=== PATIENT | male | born 1965 | race Caucasian/White ===

== ENCOUNTER → 2018-03-19 16:41 | Outpatient (REF) | payer MEDICARE, SELFPAY ==
[2018-03-19 19:15] LABS: HCT 33.6 % (40.0-50.0); HGB 11.4 g/dL (13.5-17.5); Mean Corp. HGB Concentration 33.9 g/dL (32.0-36.0); Mean Corpuscular Hemoglobin 32.5 pg (27.0-33.0); Mean Corpuscular Volume 95.7 fL (80-95); Mean Platelet Volume 9.6 fL (8.0-11.0); Platelet Count 404 x1000/uL (130-400); RBC 3.51 m/cumm (4.50-6.00); RBC Distribution Width 12.6 % (11.8-14.1); White Blood Cell Count 7.73 k/cumm (4.4-10.8)
[2018-03-19 19:17] LABS: Anion Gap 10.2 mmol/L (3-11); BUN 19 mg/dL (7-18); C-Reactive Protein 6.51 mg/dL (0.0-0.3); CO2 26.8 mmol/L (21.0-32.0); CREATININE 0.94 mg/dL (0.70-1.30); Calcium 9.5 mg/dL (8.5-10.1); Chloride 97 mmol/L (98-107); Glucose 78 mg/dL (70-100); Potassium 4.7 mmol/L (3.5-5.1); Sodium 134 mmol/L (136-145)
[2018-03-19 20:35] LABS: ESR 23 MM/HR (1-20)
[2018-03-25 13:39] LABS: Codeine Negative ng/mL (Cutoff: 25); Dihydrocodeine Negative ng/mL (Cutoff: 25); Hydrocodone 85 ng/mL (Cutoff: 25); Hydromorphone Negative ng/mL (Cutoff: 25); Morphine Negative ng/mL (Cutoff: 25); Naloxone Negative ng/mL (Cutoff: 25); Norhydrocodone Negative ng/mL (Cutoff: 25); Noroxycodone 48357 ng/mL (Cutoff: 25); Noroxymorphone 3676 ng/mL (Cutoff: 25); Opiates Interpretation Positive.
[2018-03-26 02:53] LABS: EDDP-by GC-MS 347 ng/mL; Methadone Interpretation Positive.; Methadone-by GC-MS 343 ng/mL
[2018-03-26 04:42] LABS: 2-OH-Ethyl-Flurazepam Negative ng/mL (Cutoff: 100); 7-NH-Clonazepam 3299 ng/mL (Cutoff: 100); 7-NH-Flunitrazepam Negative ng/mL (Cutoff: 50); Alpha OH-Alprazolam Negative ng/mL (Cutoff: 100); Alpha-OH-Triazolam Negative ng/mL (Cutoff: 100); Benzodiazepines Interpretation Positive.; Lorazepam Negative ng/mL (Cutoff: 100); Temazepam Negative ng/mL (Cutoff: 100)
== END ==
LOC: NCHCN 16:41
PROVIDERS: PCP Family Medicine; Visit Provider Family Medicine
DX: M86.9 Osteomyelitis, unspecified (principal); G89.4 Chronic pain syndrome; Z51.81 Encounter for therapeutic drug level monitoring
CPT/HCPCS: 80048; 80361; 85027; 85652; 80346; 80358; 86140

== ENCOUNTER 2018-06-24 13:20 | Outpatient (REF) | payer MEDICARE, SELFPAY ==
[2018-06-24 21:01] LABS: Abs Immature Grans 0.01 k/cumm (0.0-0.09); Absolute Basophil Count 0.03 k/cumm (0.0-0.2); Absolute Eosinophil Count 0.01 k/cumm (0.0-0.7); Absolute Lymphocyte Count 1.88 k/cumm (1.2-3.4); Absolute Monocyte Count 0.41 k/cumm (0.11-0.7); Absolute Neutrophil Count 3.64 k/cumm (1.2-6.7); Basophils % 0.5; Eosinophils % 0.2; HCT 40.4 % (40.0-50.0); HGB 13.3 g/dL (13.5-17.5); Immature Grans % 0.2; Lymphocytes % 31.4; Mean Corp. HGB Concentration 32.9 g/dL (32.0-36.0); Mean Corpuscular Hemoglobin 32.4 pg (27.0-33.0); Mean Corpuscular Volume 98.5 fL (80-95); Mean Platelet Volume 9.8 fL (8.0-11.0); Monocytes % 6.9; Neutrophils % 60.8; Platelet Count 334 x1000/uL (130-400); RBC Distribution Width 12.6 % (11.8-14.1); White Blood Cell Count 5.98 k/cumm (4.4-10.8)
[2018-06-24 21:55] LABS: ESR 12 MM/HR (1-20)
[2018-06-24 21:58] LABS: ALT 22 U/L (12-78); AST 13 U/L (15-37); Albumin 3.9 g/dL (3.4-5.0); Alkaline Phosphatase 72 U/L (46-116); Anion Gap 8.9 mmol/L (3-11); BUN 15 mg/dL (7-18); Bilirubin, Total 0.2 mg/dL (0.2-1.0); CO2 28.1 mmol/L (21.0-32.0); CREATININE 0.78 mg/dL (0.70-1.30); Calcium 9.5 mg/dL (8.5-10.1); Chloride 104 mmol/L (98-107); Glucose 108 mg/dL (70-100); Potassium 4.6 mmol/L (3.5-5.1); Sodium 141 mmol/L (136-145); TSH (W/Ref FT4) 0.38 uIU/mL (0.358-3.74); Total Protein 7.3 g/dL (6.4-8.2); Vitamin B12 677 pg/mL (193-986)
[2018-06-24 22:16] LABS: C-Reactive Protein 0.39 mg/dL (0.0-0.3)
== END 2018-06-24 13:40 ==
LOC: NCHCN 13:20
PROVIDERS: PCP Family Medicine; Visit Provider Family Medicine
DX: G62.9 Polyneuropathy, unspecified (principal); I10 Essential (primary) hypertension; L97.509 Non-pressure chronic ulcer of other part of unspecified foot with unspecified severity
CPT/HCPCS: 80053; 85652; 82607; 84443; 85025; 86140

== ENCOUNTER 2018-12-21 14:07 | Outpatient (REF) | payer MEDICARE, MEDICAID, SELFPAY ==
[2018-12-21 21:55] LABS: Abs Immature Grans 0.01 k/cumm (0.0-0.09); Absolute Basophil Count 0.02 k/cumm (0.0-0.2); Absolute Eosinophil Count 0.04 k/cumm (0.0-0.7); Absolute Lymphocyte Count 1.79 k/cumm (1.2-3.4); Absolute Monocyte Count 0.55 k/cumm (0.11-0.7); Absolute Neutrophil Count 5.25 k/cumm (1.2-6.7); Basophils % 0.3; Eosinophils % 0.5; HCT 40.6 % (40.0-50.0); HGB 13.6 g/dL (13.5-17.5); Immature Grans % 0.1; Lymphocytes % 23.4; Mean Corp. HGB Concentration 33.5 g/dL (32.0-36.0); Mean Corpuscular Hemoglobin 32.2 pg (27.0-33.0); Mean Corpuscular Volume 96.2 fL (80-95); Mean Platelet Volume 9.9 fL (8.0-11.0); Monocytes % 7.2; Neutrophils % 68.5; Platelet Count 295 x1000/uL (130-400); RBC 4.22 m/cumm (4.50-6.00); RBC Distribution Width 12.9 % (11.8-14.1); White Blood Cell Count 7.66 k/cumm (4.4-10.8)
[2018-12-21 22:06] LABS: C-Reactive Protein 1.49 mg/dL (0.0-0.3)
[2018-12-21 23:23] LABS: ESR 21 MM/HR (1-20)
== END 2018-12-21 14:27 ==
LOC: NCHCN 14:07
PROVIDERS: PCP Family Medicine; Visit Provider Family Medicine
DX: L97.519 Non-pressure chronic ulcer of other part of right foot with unspecified severity (principal); L72.9 Follicular cyst of the skin and subcutaneous tissue, unspecified; R50.81 Fever presenting with conditions classified elsewhere; L98.9 Disorder of the skin and subcutaneous tissue, unspecified; L03.031 Cellulitis of right toe
CPT/HCPCS: 85652; 87077; 85025; 86140; 87070; 87186; 87205

== ENCOUNTER 2019-01-21 13:28 | Outpatient (REF) | payer MEDICARE, MEDICAID, SELFPAY | END 2019-01-21 13:48 | LOC: NCHCN 13:28 | PROVIDERS: PCP Family Medicine; Visit Provider Family Medicine | DX: L97.509 Non-pressure chronic ulcer of other part of unspecified foot with unspecified severity (principal); G89.4 Chronic pain syndrome; I10 Essential (primary) hypertension; L08.9 Local infection of the skin and subcutaneous tissue, unspecified | CPT/HCPCS: 87077; 87070; 87186; 87205 ==

== ENCOUNTER 2019-06-15 12:49 | Outpatient (REF) | payer MEDICARE, MEDICAID, SELFPAY ==
[2019-06-15 13:29] LABS: ALT 13 U/L (16-63); AST 16 U/L (15-37); Albumin 3.7 g/dL (3.4-5.0); Alkaline Phosphatase 65 U/L (46-116); Anion Gap 7.9 mmol/L (3-11); BUN 12 mg/dL (7-18); Bilirubin, Total 0.2 mg/dL (0.2-1.0); C-Reactive Protein 0.46 mg/dL (0.0-0.3); CO2 31.1 mmol/L (21.0-32.0); CREATININE 0.84 mg/dL (0.70-1.30); Calcium 8.9 mg/dL (8.5-10.1); Chloride 103 mmol/L (98-107); Glucose 91 mg/dL (70-100); Potassium 4.5 mmol/L (3.5-5.1); Sodium 142 mmol/L (136-145); Total Protein 6.8 g/dL (6.4-8.2)
[2019-06-15 13:53] LABS: Abs Immature Grans 0.01 k/cumm (0.0-0.09); Absolute Basophil Count 0.01 k/cumm (0.0-0.2); Absolute Eosinophil Count 0.21 k/cumm (0.0-0.7); Absolute Lymphocyte Count 2.22 k/cumm (1.2-3.4); Absolute Monocyte Count 0.51 k/cumm (0.11-0.7); Basophils % 0.2; Eosinophils % 3.7; HGB 13.5 g/dL (13.5-17.5); Immature Grans % 0.2; Lymphocytes % 39.2; Mean Corp. HGB Concentration 32.9 g/dL (32.0-36.0); Mean Corpuscular Hemoglobin 33.7 pg (27.0-33.0); Mean Corpuscular Volume 102.2 fL (80-95); Mean Platelet Volume 10.3 fL (8.0-11.0); Neutrophils % 47.7; Platelet Count 261 x1000/uL (130-400); RBC 4.01 m/cumm (4.50-6.00); RBC Distribution Width 13.6 % (11.8-14.1); White Blood Cell Count 5.66 k/cumm (4.4-10.8)
[2019-06-15 14:52] LABS: ESR 7 mm/hr (1-20)
== END 2019-06-15 13:09 ==
LOC: NCHCN 12:49
PROVIDERS: PCP Family Medicine; Visit Provider Family Medicine
DX: I10 Essential (primary) hypertension (principal); R68.89 Other general symptoms and signs; G89.4 Chronic pain syndrome
CPT/HCPCS: 80053; 85652; 85025; 86140

== ENCOUNTER 2019-10-25 15:41 | Outpatient (REF) | payer MEDICARE, MEDICAID, SELFPAY ==
[2019-10-25 20:01] LABS: Calculated LDL 125 mg/dL (<100); Cholesterol 194 mg/dL (<200); HDL Cholesterol 60 mg/dL (40-60); Triglyceride 45 mg/dL (<150)
[2019-10-25 20:20] LABS: ESR 6 mm/hr (1-20)
[2019-10-25 20:26] LABS: C-Reactive Protein 0.09 mg/dL (0.0-0.3)
== END 2019-10-25 16:01 ==
LOC: NCHCN 15:41
PROVIDERS: PCP Family Medicine; Visit Provider Family Medicine
DX: E78.5 Hyperlipidemia, unspecified (principal); M86.9 Osteomyelitis, unspecified
CPT/HCPCS: 80061; 85652; 86140

== ENCOUNTER 2021-02-01 11:00 | Outpatient (RCR) | payer OTHER, SELFPAY ==
[2021-02-01] MEDS: cefTRIAXone 2 GM/50 ML BAG IVPB (13:50)
[2021-02-01] MEDS: Normal Saline Flush 10 ML SYR IVP (13:58)
== END 2021-02-06 23:59 | disposition home or self-care (01) ==
LOC: INF 11:00
PROVIDERS: PCP Family Medicine; Visit Provider Nurse Practitioner Acute Care
DX: T84.54XA Infection and inflammatory reaction due to internal left knee prosthesis, initial encounter (principal)
CPT/HCPCS: 36573; 96365

== ENCOUNTER 2021-11-13 15:56 | Outpatient (REF) | payer MEDICAID, SELFPAY ==
--- OUTSIDE RECORDS SUMMARY | 2021-11-13 15:58 | XMS_ITS ---
:1965 Author Care Team Providers Name Role Phone [facility] Primary Care Provider [phone] Allergies Code Code System Name Reaction Severity Status Onset Nsaids Anaphylaxis Severe Active ? (Non-steroid al Anti-inflamm atory Drug) Medications Name Status Start Date Stop Date ? ? acetaminophen 325 mg tablet Active 02/01/2021 Not available Take 650 mg every 6 hours by oral route as needed. amitriptyline 50 mg tablet Active 01/31/2021 Not a vailable Take 1 tablet every day by oral route at bedtime. aspirin 325 mg tablet Active 02/01/2021 Not availa ble Take 1 tablet every day by oral route. ceftriaxone 2 gram intravenous solution Active 02/02/20 Not available Inject 2 g every 24 hours by intravenous route as directed for 42 days. clonidine HCl 0.1 mg tablet Completed 01/02/202001/09 Take 0.1 mg twice a day by oral route. oxycodone 5 mg capsule Active ? Not avail able Take 5 mg every 6 hours by oral route as needed. Subutex 2 mg sublingual tablet Active 01/31/[address] 1 tablet every day by sublingual route. Subutex 8 mg sublingual tablet Active 01/31/[address] 1 tablet every day by sublingual route. verapamil ER (SR) 240 mg tablet,extended release Active 01/31/2021 Not available Take 1 tablet every day by oral route. Vistaril 25 mg capsule Active 01/31/2021 Not avail able Take 1 capsule twice a day by oral route. warfarin 2 mg tablet Active 02/01/2021 Not availab le Take 1 tablet every day by oral route. Notes: med rec 01/28/21 wmd Problems Name Status Onset Date Source ? Depressive Disorder Active 02/13/2021 ? Hypertensive Disorder Active 02/13/2021 ? Procedures Date Name Performed by ? 01/30/2021 Debridement and Irrigation of Joint Info rmation not available Notes: 2nd I&D infected L TKA w/poly. liner exchange 01/25/2021 Debridement and Irrigation of Joint Info rmation not available Notes: I&D septic L TKA 08/10/2014 Total Hip Arthroplasty Information not a vailable Notes: right ? Total Knee Arthroplasty Information not available 04/25/2021 XR, Knee, 3 View [facility] Radiology (Internal) [address] [place], [place] [id number] (Work Place) Results Lab Results Date Name Specimen Result Interpretation Description Value Range Status Address ? 03/21/2021 CBC W/ Auto BLD ? Wbc 7.0 10*3/uL 5.0-10.0 F inal North Diff 10*3/uL [facility] Hospital L ab (Internal) : [address] ? ? BLD Low Rbc 4.38 10*6/uL 4.60-6.00 Final N orth 10*6/uL [facility] L ab (Internal) : [address] ? ? BLD Low Hgb 12.5 g/dL 14.0-18.0 Final Nort h g/dL [facility] L ab (Internal) : [address] ? ? BLD Low Hct 40.0 % 41.0-51.0 Final [facility] L ab (Internal) : [address] ? ? BLD ? Mcv 91.3 fL 80.0-96.0 Final [facility] L ab (Internal) : [address] ? ? BLD ? Mch 28.5 pg 26.0-32.[address] [facility] L ab (Internal) : [address] ? ? BLD ? Mchc 31.3 g/dL 31.0-35.0 Final Nort h g/dL [facility] L ab (Internal) : [address] ? ? BLD ? Rdw 13.4 % 11.5-14.5 Final [facility] L ab (Internal) : [address] ? ? BLD ? Plt 437 10*3/uL 130-450 Final Nort h 10*3/uL [facility] L ab (Internal) : [address] 03/21/2021 CRP, High S High Rcrp 4.01 mg/dL 0.10-0.30 [facility] Sensitivity, mg/dL Coun try Serum or Hospital Lab Plasma (Internal) : [address] t 03/21/2021 Differential BLD ? Polys 45 % 40-75 % Final Iva , [facility], [facility] Blood Hospital L ab (Internal) : [address] ? ? BLD ? Bands 0 % 0-5 % Final [facility] Hospital L ab (Internal) : [address] ? ? BLD ? Lymphs 42 % 20-50 % Final [facility] Hospital L ab (Internal) : [address] ? ? BLD ? Coryell 8 % 2-10 % Final [facility] Hospital L ab (Internal) : [address] ? ? BLD ? Eos 2 % 0-6 % Final [facility] L ab (Internal) : [address] ? ? BLD ? Baso 1 % 0-1 % Final [facility] L ab (Internal) : [address] ? ? BLD ? Atyp 3 % ? Final [facility] L ab (Internal) : [address] ? ? BLD ? Plts, adequate adequate Final [facility] Hospital L ab (Internal) : [address] ? ? BLD ? RBC normal normal Final [facility] Hospital L ab (Internal) : [address] t 03/21/2021 Neutrophil BLD ? Anc-manua 3.15 10*3/uL ? Final Iva Count, [facility] Lab (Anc), Blood (Int ernal): [address] t 03/21/2021 Nlr-manual BLD ? Nlr - 1.07 0.00-3.20 Final [facility] Hospital L ab (Internal) : [address] t 03/21/2021 ESR BLD High Esr 52 mm/h 0-20 mm/h Final No rth (Erythrocyte Coun try [facility] Hosp ital Lab n Rate), (Interna l): Blood [address] t 02/01/2021 Cbc BLD High Wbc 10.3 10*3/uL 5.0-10.0 Final North 10*3/uL [facility] Hospital L ab (Internal) : [address] ? ? BLD ? Rbc 5.53 10*6/uL 4.60-6.00 Final N orth 10*6/uL [facility] L ab (Internal) : [address] ? ? BLD ? Hgb 17.1 g/dL 14.0-18.0 Final Nort h g/dL [facility] L ab (Internal) : [address] ? ? BLD High Hct 52.5 % 41.0-51.0 Final [facility] L ab (Internal) : [address] ? ? BLD ? Mcv 94.9 fL 80.0-96.0 Final [facility] L ab (Internal) : [address] ? ? BLD ? Mch 30.9 pg 26.0-32.[address] [facility] L ab (Internal) : [address] ? ? BLD ? Mchc 32.6 g/dL 31.0-35.0 Final Nort h g/dL [facility] L ab (Internal) : [address] ? ? BLD ? Rdw 13.3 % 11.5-14.5 Final [facility] L ab (Internal) : [address] ? ? BLD ? Plt 174 10*3/uL 130-450 Final Nort h 10*3/uL [facility] L ab (Internal) : [address] ? ? BLD ? Anc 7.61 10*3/uL ? Final Nort h [facility] L ab (Internal) : [address] 01/31/2021 CBC W/ Auto BLD High Wbc 11.6 10*3/uL 5.0-10.0 Final North Diff 10*3/uL [facility] L ab (Internal) : [address] ? ? BLD Low Rbc 3.01 10*6/uL 4.60-6.00 Final N orth 10*6/uL [facility] Hospital L ab (Internal) : [address] ? ? BLD Low Hgb 9.3 g/dL 14.0-18.0 Final Iva g/dL [facility] Hospital L ab (Internal) : [address] ? ? BLD Low Hct 27.9 % 41.0-51.0 Final [facility] L ab (Internal) : [address] ? ? BLD ? Mcv 92.7 fL 80.0-96.0 Final [facility] L ab (Internal) : [address] ? ? BLD ? Mch 30.9 pg 26.0-32.[address] [facility] L ab (Internal) : [address] ? ? BLD ? Mchc 33.3 g/dL 31.0-35.0 [facility] L [facility] (Internal[facility] : [address] ? ? BLD ? Rdw 13.2 % 11.5-14.5 Final [facility] L ab (Internal) : [address] ? ? BLD ? Plt 364 10*3/uL 130-450 Final Nort h 10*3/uL [facility] Hospital L ab (Internal) : [address] ? ? BLD ? Anc 8.71 10*3/uL ? Final Nort [facility] L ab (Internal) : [address] ? ? BLD High Nlr 5.62 0.00-3.20 Final [facility] L ab (Internal) : [address] ? ? BLD ? Neutro 75.0 % 40.0-75.0 Final [facility] L ab (Internal) : [address] ? ? BLD Low Lymph 13.4 % 20.0-50.0 Final [facility] L ab (Internal) : [address] ? ? BLD High Coryell 10.2 % 2.0-10.0 Final [facility] L ab (Internal) : [address] ? ? BLD Low Eos 0.5 % 1.0-6.0 % Final [facility] L ab (Internal) : [address] ? ? BLD ? Baso 0.3 % 0.0-1.0 % Final [facility] L ab (Internal) : [address] ? ? BLD ? Ig 0.6 % 0.0-0.9 % Final [facility] L ab (Internal) : [address] 01/30/2021 Cbc BLD ? Wbc 9.9 10*3/uL 5.0-10.0 Final Iva 10*3/uL [facility] L ab (Internal) : [address] ? ? BLD Low Rbc 3.29 10*6/uL 4.60-6.00 Final N orth 10*6/uL [facility] Hospital L ab (Internal) : [address] ? ? BLD Low Hgb 10.2 g/dL 14.0-18.0 Final Nort h g/dL [facility] L ab (Internal) : [address] ? ? BLD Low Hct 31.0 % 41.0-51.0 Final [facility] L ab (Internal) : [address] ? ? BLD ? Mcv 94.2 fL 80.0-96.0 Final [facility] L ab (Internal) : [address] ? ? BLD ? Mch 31.0 pg 26.0-32.[address] [facility] L ab (Internal) : [address] ? ? BLD ? Mchc 32.9 g/dL 31.0-35.0 Final Nort h g/dL [facility] L ab (Internal) : [address] ? ? BLD ? Rdw 13.4 % 11.5-14.5 Final [facility] L ab (Internal) : [address] ? ? BLD ? Plt 254 10*3/uL 130-450 Final Nort h 10*3/uL [facility] L ab (Internal) : [address] ? ? BLD ? Anc 6.96 10*3/uL ? Final Nort h [facility] Hospital L ab (Internal) : [address] 01/30/2021 Vancomycin, S Low Vanco, 13.7 ug/mL 15.0-20.0 Final Iva Trough, Trough ug/mL [facility] Hospital L ab (Internal) : [address] 01/29/2021 Cbc BLD ? Wbc 9.2 10*3/uL 5.0-10.0 Final Iva 10*3/uL [facility] Hospital L ab (Internal) : [address] ? ? BLD Low Rbc 2.89 10*6/uL 4.60-6.00 Final N orth 10*6/uL [facility] Hospital L ab (Internal) : [address] ? ? BLD Low Hgb 9.0 g/dL 14.0-18.0 Final Iva g/dL [facility] L ab (Internal) : [address] ? ? BLD Low Hct 27.4 % 41.0-51.0 Final [facility] L ab (Internal) : [address] ? ? BLD ? Mcv 94.8 fL 80.0-96.0 Final [facility] L ab (Internal) : [address] ? ? BLD ? Mch 31.1 pg 26.0-32.[address] [facility] L ab (Internal) : [address] ? ? BLD ? Mchc 32.8 g/dL 31.0-35.0 Final Nort h g/dL [facility] L ab (Internal) : [address] ? ? BLD ? Rdw 13.3 % 11.5-14.5 Final [facility] L ab (Internal) : [address] ? ? BLD ? Plt 213 10*3/uL 130-450 Final Nort h 10*3/uL [facility] L ab (Internal) : [address] ? ? BLD ? Anc 6.63 10*3/uL ? Final Nort h [facility] L ab (Internal) : [address] t 01/29/2021 Vancomycin, S Low Vanco, 11.0 ug/mL 15.0-20.0 Final Iva Trough, Trough ug/mL [facility] Hospital L ab (Internal) : [address] t 01/28/2021 Cbc BLD High Wbc 11.9 10*3/uL 5.0-10.0 Final North 10*3/uL [facility] Hospital L ab (Internal) : [address] ? ? BLD Low Rbc 3.15 10*6/uL 4.60-6.00 Final N orth 10*6/uL [facility] Hospital L ab (Internal) : [address] ? ? BLD Low Hgb 9.8 g/dL 14.0-18.0 Final North g/dL [facility] Hospital L ab (Internal) : [address] ? ? BLD Low Hct 29.5 % 41.0-51.0 Final [facility] L ab (Internal) : [address] ? ? BLD ? Mcv 93.7 fL 80.0-96.0 Final [facility] L ab (Internal) : [address] ? ? BLD ? Mch 31.1 pg 26.0-32.[address] [facility] L ab (Internal) : [address] ? ? BLD ? Mchc 33.2 g/dL 31.0-35.0 Final Nort h g/dL [facility] Hospital L ab (Internal) : [address] ? ? BLD ? Rdw 13.2 % 11.5-14.5 Final [facility] L ab (Internal) : [address] ? ? BLD ? Plt 229 10*3/uL 130-450 Final Nort h 10*3/uL [facility] Hospital L ab (Internal) : [address] ? ? BLD ? Anc 9.55 10*3/uL ? Final Nort h [facility] L ab (Internal) : [address] 01/27/2021 CBC W/ Auto BLD High Wbc 12.2 10*3/uL 5.0-10.0 Final North Diff 10*3/uL [facility] Hospital L ab (Internal) : [address] ? ? BLD Low Rbc 3.22 10*6/uL 4.60-6.00 Final N orth 10*6/uL [facility] Hospital L ab (Internal) : [address] ? ? BLD Low Hgb 10.2 g/dL 14.0-18.0 Final Nort h g/dL [facility] Hospital L ab (Internal) : [address] ? ? BLD Low Hct 30.7 % 41.0-51.0 Final [facility] Hospital L ab (Internal) : [address] ? ? BLD ? Mcv 95.3 fL 80.0-96.0 Final [facility] Hospital L ab (Internal) : [address] ? ? BLD ? Mch 31.7 pg 26.0-32.0 Final [facility] Hospital L ab (Internal) : [address] ? ? BLD ? Mchc 33.2 g/dL 31.0-35.0 Final Nort h g/dL [facility] Hospital L ab (Internal) : [address] ? ? BLD ? Rdw 13.0 % 11.5-14.5 Final [facility] Hospital L ab (Internal) : [address] ? ? BLD ? Plt 194 10*3/uL 130-450 Final Nort h 10*3/uL [facility] Hospital L ab (Internal) : [address] 01/27/2021 Differential BLD High Polys 87 % 40-75 % Final [facility] Blood Hospital L ab (Internal) : [address] ? ? BLD ? Bands 1 % 0-5 % Final [facility] Hospital L ab (Internal) : [address] ? ? BLD Low Lymphs 10 % 20-50 % Final [facility] Hospital L ab (Internal) : [address] ? ? BLD ? Coryell 2 % 2-10 % Final [facility] Hospital L ab (Internal) : [address] ? ? BLD ? Eos 0 % 0-6 % Final [facility] Hospital L ab (Internal) : [address] ? ? BLD ? Baso 0 % 0-1 % Final [facility] Hospital L ab (Internal) : [address] ? ? BLD ? Atyp 0 % ? Final [facility] Hospital L ab (Internal) : [address] ? ? BLD ? Plts, adequate adequate Final Iva Est. [facility] Hospital L ab (Internal) : [address] ? ? BLD ? RBC normal normal Final Iva Morphology [facility] Hospital L ab (Internal) : [address] t 01/27/2021 Neutrophil BLD ? Anc-manua 10.74 10*3/uL ? Final Iva Count, l [facility] Lab (Anc), Blood (Int ernal): [address] t 01/27/2021 Nlr-manual BLD High Nlr - 8.80 0.00-3.20 Final [facility] Hospital L ab (Internal) : [address] 01/27/2021 Vancomycin, S Low Vanco, <6.0 ug/mL 15.0-20.0 Final Iva Trough, Trough ug/mL [facility] Hospital L ab (Internal) : [address] 01/26/2021 CBC W/ Auto BLD High Wbc 12.0 10*3/uL 5.0-10.0 Final Iva Diff 10*3/uL [facility] L ab (Internal) : [address] ? ? BLD Low Rbc 3.70 10*6/uL 4.60-6.00 Final N orth 10*6/uL [facility] L ab (Internal) : [address] ? ? BLD Low Hgb 11.5 g/dL 14.0-18.0 Final Nort h g/dL [facility] L ab (Internal) : [address] ? ? BLD Low Hct 35.3 % 41.0-51.0 Final [facility] L ab (Internal) : [address] ? ? BLD ? Mcv 95.4 fL 80.0-96.0 Final [facility] L ab (Internal) : [address] ? ? BLD ? Mch 31.1 pg 26.0-32.0 Final Iva pg [facility] L ab (Internal) : [address] ? ? BLD ? Mchc 32.6 g/dL 31.0-35.0 Final Nort h g/dL [facility] Hospital L ab (Internal) : [address] ? ? BLD ? Rdw 13.1 % 11.5-14.5 Final [facility] Hospital L ab (Internal) : [address] ? ? BLD ? Plt 159 10*3/uL 130-450 Final Nort h 10*3/uL [facility] Hospital L ab (Internal) : [address] 01/26/2021 Differential BLD High Polys 94 % 40-75 % Final Iva , Manual, [facility] Blood Hospital L ab (Internal) : [address] ? ? BLD ? Bands 0 % 0-5 % Final [facility] Hospital L ab (Internal) : [address] ? ? BLD Low Lymphs 3 % 20-50 % Final [facility] Hospital L ab (Internal) : [address] ? ? BLD ? Coryell 3 % 2-10 % Final [facility] Hospital L ab (Internal) : [address] ? ? BLD ? Eos 0 % 0-6 % Final [facility] L ab (Internal) : [address] ? ? BLD ? Baso 0 % 0-1 % Final [facility] Hospital L ab (Internal) : [address] ? ? BLD ? Atyp 0 % ? Final [facility] L ab (Internal) : [address] ? ? BLD ? Plts, adequate adequate Final [facility] Hospital L ab (Internal) : [address] ? ? BLD ? RBC normal normal Final [facility] Hospital L ab (Internal) : [address] 01/26/2021 Neutrophil BLD ? Anc-manua 11.30 10*3/uL ? Final Iva Count, [facility] Hospital Lab (Anc), Blood (Int ernal): [address] 01/26/2021 Nlr-manual BLD High Nlr - 31.33 0.00-3.20 Final [facility] Hospital L ab (Internal) : [address] 01/25/2021 Culture, BLD ? Final microbiology ? Final Iva Blood 1 results [facility] Hospital L ab (Internal) : [address] t 01/25/2021 Lactic Acid, S High La 3.0 mmol/L 0.7-2.1 Fi nal North Blood mmol/L [facility] Hospital L ab (Internal) : [address] t 01/25/2021 CBC W/ Auto BLD High Wbc 16.3 10*3/uL 5.0-10.0 Final North Diff 10*3/uL [facility] L [facility] (Internal) : [address] ? ? BLD Low Rbc 4.07 10*6/uL 4.60-6.00 Final N orth 10*6/uL [facility] Hospital L ab (Internal) : [address] ? ? BLD Low Hgb 12.8 g/dL 14.0-18.0 Final Nort h g/dL [facility] L ab (Internal) : [address] ? ? BLD Low Hct 38.1 % 41.0-51.0 Final [facility] L ab (Internal) : [address] ? ? BLD ? Mcv 93.6 fL 80.0-96.0 Final [facility] L ab (Internal) : [address] ? ? BLD ? Mch 31.4 pg 26.0-32.0 Final Iva pg [facility] L ab (Internal) : [address] ? ? BLD ? Mchc 33.6 g/dL 31.0-35.0 Final Nort h g/dL [facility] Hospital L ab (Internal) : [address] ? ? BLD ? Rdw 12.8 % 11.5-14.5 Final [facility] L ab (Internal) : [address] ? ? BLD ? Plt 216 10*3/uL 130-450 Final Nort h 10*3/uL [facility] Hospital L ab (Internal) : [address] 01/25/2021 CMP, Serum S ? g/r 104 mg/dL 74-106 Final North or Plasma mg/dL [facility] Hospital L ab (Internal) : [address] ? ? S ? Bun 14 mg/dL 9-20 Final North mg/dL [facility] Hospital L ab (Internal) : [address] ? ? S ? Crea 0.80 mg/dL 0.66-1.25 Final Nor th mg/dL [facility] L ab (Internal) : [address] ? ? S ? Ca 9.2 mg/dL 8.4-10.2 Final North mg/dL [facility] L ab (Internal) : [address] ? ? S Low Na 133 mmol/L 137-145 Final North mmol/L [facility] Hospital L ab (Internal) : [address] ? ? S ? K 3.8 mmol/L 3.5-5.1 Final North mmol/L [facility] L ab (Internal) : [address] ? ? S Low Cl 92 mmol/L 98-107 Final North mmol/L [facility] Hospital L ab (Internal) : [address] ? ? S ? Tco2 30.0 mmol/L 22.0-30.0 Final No rth mmol/L [facility] L ab (Internal) : [address] ? ? S ? Tp 7.6 g/dL 6.3-8.2 Final North g/dL [facility] L ab (Internal) : [address] ? ? S ? Alb 4.2 g/dL 3.5-5.0 Final North g/dL [facility] L ab (Internal) : [address] ? ? S ? Tbil 0.5 mg/dL 0.2-1.3 Final North mg/dL [facility] Hospital L ab (Internal) : [address] ? ? S ? Alp 56 U/L 50-136 Final North U/L [facility] Hospital L ab (Internal) : [address] ? ? S Low Alt 13 U/L 21-72 U/L Final Iva (Sgpt) [facility] Hospital L ab (Internal) : [address] ? ? S ? Ast 30 U/L 17-59 U/L Final Iva (Sgot) [facility] Hospital L ab (Internal) : [address] 01/25/2021 Culture, BLD ? Final microbiology ? Final North Blood 2 results [facility] (Internal) : [address] 01/25/2021 Differential BLD High Polys 83 % 40-75 % Final [facility], [facility] Blood Hospital L ab (Internal) : [address] ? ? BLD ? Bands 5 % 0-5 % Final [facility] L ab (Internal) : [address] ? ? BLD Low Lymphs 4 % 20-50 % Final [facility] Hospital L ab (Internal) : [address] ? ? BLD ? Coryell 7 % 2-10 % Final [facility] ab (Internal) : [address] ? ? BLD ? Eos 0 % 0-6 % Final [facility] ab (Internal) : [address] ? ? BLD ? Baso 0 % 0-1 % Final [facility] ab (Internal) : [address] ? ? BLD ? Atyp 0 % ? Final [facility] ab (Internal) : [address] ? ? BLD High Young 1 % 0-0 % Final [facility] ab (Internal) : [address] ? ? BLD ? Plts, adequate adequate Final [facility] ab (Internal) : [address] ? ? BLD ? RBC normal normal Final [facility] Hospital L ab (Internal) : [address] 01/25/2021 Neutrophil BLD ? Anc-manua 14.34 10*3/uL ? [facility] Blood (Int ernal): [address] 01/25/2021 Nlr-manual BLD High Nlr - 22.00 0.00-3.20 Final [facility] L ab (Internal) : [address] 01/25/2021 Cell Count, MISC ? Source, synovial ? Jovana l Iva Body Fluid Bf fluid Countr Hospital L ab (Internal) : [address] ? ? MISC ? Color, Bf yellow ? Final [facility] ab (Internal) : [address] ? ? MISC ? Clarity cloudy ? Final [facility] Hospital ab (Internal) : [address] ? ? MISC ? WBC, Bf 56.33 10*3/uL ? Final N orth (Auto) [facility] (Internal) : [address] ? ? MISC ? RBC, Bf 0.01 10*6/uL ? Final No rth (Auto) [facility] (Internal) : [address] ? ? MISC ? Polys, Bf 89 % ? Final North (Auto) [facility] (Internal) : [address] ? ? MISC ? Lymphs, 9 % ? Final North Bf(auto) [facility] (Internal) : [address] ? ? MISC ? Monocyte, 2 % ? Final North Bf (Auto) [facility] (Internal) : [address] ? ? MISC ? Eos, Bf 0 % ? Final Iva (Auto) [facility] (Internal) : [address] ? ? MISC ? Baso, Bf 0 % ? Final Iva (Auto) [facility] (Internal) : [address] 01/25/2021 Culture, N/A ? Final microbiology ? Final Iva Aerobic, results [facility] Lab (Internal) : [address] 01/25/2021 CRP, High S High Rcrp 57.39 mg/dL 0.10-0.30 Fi [facility] Sensitivity, mg/dL Coun try Serum or Hospital Lab Plasma (Internal) : [address] 01/25/2021 Respiratory FLUID ? Final microbiology ? Fi nal Iva Virus Panel results Coun try Hospital ab (Internal) : [address] 01/25/2021 Culture, N/A ? Final microbiology ? Final Iva Anaerobic, results Count ry Isolate Hospital Lab (Internal) : [address] 01/25/2021 Bacteria N/A ? Final microbiology ? Final Iva Identificati results Cou ntry on, Hospital L ab Unspecified (Inte rnal): Specimen [address] 01/25/2021 Bacteria N/A ? Final microbiology ? Final Iva Identificati results Cou ntry on, Hospital L ab Unspecified (Inte rnal): Specimen [address] 01/02/2020 CBC W/ Auto BLD ? Wbc 8.9 10*3/uL 5.0-10.0 F inal North Diff 10*3/uL [facility] Hospital L ab (Internal) : [address] ? ? BLD Low Rbc 3.78 10*6/uL 4.60-6.00 Final N orth 10*6/uL [facility] Hospital L ab (Internal) : [address] ? ? BLD Low Hgb 12.4 g/dL 14.0-18.0 Final Nort h g/dL [facility] Hospital L ab (Internal) : [address] ? ? BLD Low Hct 35.5 % 41.0-51.0 Final [facility] L ab (Internal) : [address] ? ? BLD ? Mcv 93.9 fL 80.0-96.0 Final [facility] L ab (Internal) : [address] ? ? BLD High Mch 32.8 pg 26.0-32.0 Final [facility] Hospital L ab (Internal) : [address] ? ? BLD ? Mchc 34.9 g/dL 31.0-35.0 Final Nort h g/dL [facility] Hospital L ab (Internal) : [address] ? ? BLD ? Rdw 11.5 % 11.5-14.5 Final [facility] L ab (Internal) : [address] ? ? BLD ? Plt 261 10*3/uL 130-450 Final Nort h 10*3/uL [facility] L ab (Internal) : [address] t ? ? BLD ? Anc 5.65 10*3/uL ? Final Nort h [facility] L ab (Internal) : [address] ? ? BLD ? Nlr 2.36 0.00-3.20 Final [facility] L ab (Internal) : [address] t ? ? BLD ? Neutro 63.9 % 40.0-75.0 Final [facility] (Internal) : [address] t ? ? BLD ? Lymph 27.0 % 20.0-50.0 Final [facility] L ab (Internal) : [address] ? ? BLD ? Coryell 8.0 % 2.0-10.0 Final [facility] L ab (Internal) : [address] t ? ? BLD Low Eos 0.5 % 1.0-6.0 % Final [facility] L ab (Internal) : [address] t ? ? BLD ? Baso 0.3 % 0.0-1.0 % Final [facility] L ab (Internal) : [address] t ? ? BLD ? Ig 0.3 % 0.0-0.9 % Final [facility] L ab (Internal) : [address] t 01/02/2020 Lactic Acid, S ? La 1.6 mmol/L 0.7-2.1 Fi nal North Blood mmol/L [facility] L ab (Internal) : [address] t 01/02/2020 Ketones, S ? Ketone 0.1 mmol/L 0.0-0.5 Final [facility] Quantitative (Bhb mmol/L Coun try , Blood Quant) Hospital Lab (Internal) : [address] t 01/02/2020 CMP, Serum S ? g/r 104 mg/dL 74-106 Final North or Plasma mg/dL [facility] L ab (Internal) : [address] t ? ? S Low Bun 6 mg/dL 9-20 Final North mg/dL [facility] L [facility] (Internal) : [address] t ? ? S Low Crea 0.50 mg/dL 0.66-1.25 Final Nor th mg/dL [facility] L ab (Internal) : [address] t ? ? S ? Ca 8.7 mg/dL 8.4-10.2 Final North mg/dL [facility] L ab (Internal) : [address] t ? ? S Low Na 133 mmol/L 137-145 Final North mmol/L [facility] L [facility] (Internal) : [address] t ? ? S ? K 3.6 mmol/L 3.5-5.1 Final North mmol/L [facility] L [facility] (Internal) : [address] t ? ? S Low Cl 94 mmol/L 98-107 Final North mmol/L [facility] L [facility] (Internal) : [address] t ? ? S ? Tco2 29.0 mmol/L 22.0-30.0 Final No rth mmol/L [facility] (Internal) : [address] t ? ? S Low Tp 5.9 g/dL 6.3-8.2 Final [facility] g/dL [facility] (Internal) : [address] t ? ? S ? Alb 3.6 g/dL 3.5-5.0 Final North g/dL [facility] L [facility] (Internal) : [address] t ? ? S ? Tbil 0.7 mg/dL 0.2-1.3 Final [facility] mg/dL [facility] (Internal) : [address] ? ? S ? Alp 53 U/L 50-136 Final [facility] U/L [facility] (Internal) : [address] ? ? S Low Alt 17 U/L 21-72 U/L Final [facility] (Sgpt) [facility] (Internal) : [address] ? ? S ? Ast 23 U/L 17-59 U/L Final [facility] (Sgot) [facility] L [facility] (Internal) : [address] 01/02/2020 Magnesium, S ? mg 2.1 mg/dL 1.6-2.3 Final [facility] QN, Serum or mg/dL [facility] L ab (Internal) : [address] 01/02/2020 HIV (1+2) Ab S ? HIV 1/2 negative negative F inal [facility] Screen, Antigen [facility] Antibody (Interna l): [address] 01/01/2020 CBC W/ Auto BLD ? Wbc 6.9 10*3/uL 5.0-10.0 F inal [facility] Diff 10*3/uL [facility] (Internal) : [address] t ? ? BLD Low Rbc 3.62 10*6/uL 4.60-6.00 Final N orth 10*6/uL [facility] L ab (Internal) : [address] ? ? BLD Low Hgb 11.9 g/dL 14.0-18.0 Final Nort h g/dL [facility] L [facility] (Internal) : [address] ? ? BLD Low Hct 34.4 % 41.0-51.0 Final [facility] L ab (Internal) : [address] ? ? BLD ? Mcv 95.0 fL 80.0-96.0 Final [facility] L ab (Internal) : [address] ? ? BLD High Mch 32.9 pg 26.0-32.[address] [facility] L ab (Internal) : [address] ? ? BLD ? Mchc 34.6 g/dL 31.0-35.0 Final Nort h g/dL [facility] L ab (Internal) : [address] ? ? BLD ? Rdw 11.7 % 11.5-14.5 Final [facility] L ab (Internal) : [address] ? ? BLD ? Plt 239 10*3/uL 130-450 Final Nort h 10*3/uL [facility] L ab (Internal) : [address] ? ? BLD ? Anc 4.07 10*3/uL ? Final Nort h [facility] L ab (Internal) : [address] ? ? BLD ? Nlr 2.01 0.00-3.20 Final [facility] L ab (Internal) : [address] ? ? BLD ? Neutro 58.8 % 40.0-75.0 Final [facility] L ab (Internal) : [address] ? ? BLD ? Lymph 29.2 % 20.0-50.0 Final [facility] L ab (Internal) : [address] ? ? BLD High Coryell 10.4 % 2.0-10.0 Final [facility] ([facility]) : [address] ? ? BLD Low Eos 0.7 % 1.0-6.0 % Final [facility] L ab (Internal) : [address] ? ? BLD ? Baso 0.6 % 0.0-1.0 % Final [facility] L ab (Internal) : [address] ? ? BLD ? Ig 0.3 % 0.0-0.9 % Final [facility] L ab (Internal) : [address] t 01/01/2020 CMP, Serum S High g/r 113 mg/dL 74-106 Final North or Plasma mg/dL [facility] (Internal) : [address] ? ? S ? Bun 15 mg/dL 9-20 Final North mg/dL [facility] L ab (Internal) : [address] ? ? S Low Crea 0.60 mg/dL 0.66-1.25 Final Nor th mg/dL [facility] L [facility] (Internal) : [address] ? ? S Low Ca 8.1 mg/dL 8.4-10.2 Final [facility] mg/dL [facility] (Internal) : [address] ? ? S Low Na 136 mmol/L 137-145 Final North mmol/L [facility] L [facility] (Internal) : [address] ? ? S Low K 3.1 mmol/L 3.5-5.1 Final North mmol/L [facility] (Internal) : [address] ? ? S ? Cl 103 mmol/L 98-107 Final [facility] mmol/L [facility] (Internal) : [address] ? ? S ? Tco2 26.0 mmol/L 22.0-30.0 Final No rth mmol/L [facility] (Internal) : [address] ? ? S Low Tp 4.9 g/dL 6.3-8.2 Final [facility] g/dL [facility] (Internal) : [address] ? ? S Low Alb 2.8 g/dL 3.5-5.0 Final [facility] g/dL [facility] (Internal) : [address] ? ? S ? Tbil 0.7 mg/dL 0.2-1.3 Final [facility] mg/dL [facility] (Internal) : [address] ? ? S Low Alp 34 U/L 50-136 Final North U/L [facility] (Internal) : [address] ? ? S Low Alt 14 U/L 21-72 U/L Final [facility] (Sgpt) [facility] L ab (Internal) : [address] ? ? S ? Ast 19 U/L 17-59 U/L Final [facility] (Sgot) [facility] L ab (Internal) : [address] 01/01/2020 Lactic Acid, S High La 3.6 mmol/L 0.7-2.1 Fi nal [facility] Blood mmol/L [facility] L ab (Internal) : [address] 01/01/2020 CBC W/ Auto BLD ? Wbc 8.8 10*3/uL 5.0-10.0 F inal [place] Diff 10*3/uL [facility] L ab (Internal) : [address] ? ? BLD Low Rbc 3.85 10*6/uL 4.60-6.00 Final N orth 10*6/uL [facility] L [facility] (Internal) : [address] ? ? BLD Low Hgb 12.7 g/dL 14.0-18.0 Final Nort h g/dL [facility] L [facility] (Internal) : [address] ? ? BLD Low Hct 36.5 % 41.0-51.0 Final [facility] % [facility] (Internal) : [address] ? ? BLD ? Mcv 94.8 fL 80.0-96.0 Final [facility] fL [facility] L [facility] (Internal) : [address] ? ? BLD High Mch 33.0 pg 26.0-32.0 Final [facility] pg [facility] L ab (Internal) : [address] ? ? BLD ? Mchc 34.8 g/dL 31.0-35.0 Final Nort h g/dL [facility] (Internal) : [address] ? ? BLD ? Rdw 11.8 % 11.5-14.5 Final [facility] L ab (Internal) : [address] ? ? BLD ? Plt 263 10*3/uL 130-450 Final Nort h 10*3/uL [facility] L ab (Internal) : [address] ? ? BLD ? Anc 5.38 10*3/uL ? Final Nort h [facility] L ab (Internal) : [address] ? ? BLD ? Nlr 2.09 0.00-3.20 Final [facility] L ab (Internal) : [address] ? ? BLD ? Neutro 61.3 % 40.0-75.0 Final [facility] L ab (Internal) : [address] ? ? BLD ? Lymph 29.2 % 20.0-50.0 Final [facility] L ab (Internal) : [address] ? ? BLD ? Coryell 8.4 % 2.0-10.0 Final [facility] L ab (Internal) : [address] ? ? BLD Low Eos 0.5 % 1.0-6.0 % Final [facility] L ab (Internal) : [address] ? ? BLD ? Baso 0.3 % 0.0-1.0 % Final [facility] L ab (Internal) : [address] ? ? BLD ? Ig 0.3 % 0.0-0.9 % Final [facility] L ab (Internal) : [address] t 01/01/2020 CMP, Serum S ? g/r 97 mg/dL 74-106 Final North or Plasma mg/dL [facility] L ab (Internal) : [address] ? ? S ? Bun 12 mg/dL 9-20 Final North mg/dL [facility] L [facility] (Internal) : [address] ? ? S Low Crea 0.60 mg/dL 0.66-1.25 Final [facility] th mg/dL [facility] L ab (Internal) : [address] ? ? S ? Ca 8.4 mg/dL 8.4-10.2 Final [facility] mg/dL [facility] (Internal) : [address] ? ? S Low Na 133 mmol/L 137-145 Final North mmol/L [facility] L [facility] (Internal) : [address] ? ? S Low K 3.1 mmol/L 3.5-5.1 Final [facility] mmol/L [facility] (Internal) : [address] ? ? S Low Cl 95 mmol/L 98-107 Final [facility] mmol/L [facility] (Internal) : [address] ? ? S ? Tco2 28.0 mmol/L 22.0-30.0 Final No rth mmol/L [facility] (Internal) : [address] ? ? S Low Tp 5.5 g/dL 6.3-8.2 Final [facility] g/dL [facility] (Internal) : [address] ? ? S Low Alb 3.3 g/dL 3.5-5.0 Final [facility] g/dL [facility] (Internal) : [address] ? ? S ? Tbil 0.5 mg/dL 0.2-1.3 Final North mg/dL [facility] L [facility] (Internal) : [address] ? ? S Low Alp 48 U/L 50-136 Final [facility] U/L [facility] (Internal) : [address] ? ? S Low Alt 16 U/L 21-72 U/L Final [facility] (Sgpt) [facility] (Internal) : [address] ? ? S ? Ast 19 U/L 17-59 U/L Final [facility] (Sgot) [facility] L [facility] (Internal) : [address] 01/01/2020 Magnesium, S ? mg 1.9 mg/dL 1.6-2.3 Final [facility] QN, Serum or mg/dL [facility] L [facility] (Internal) : [address] t 12/31/2019 Ammonia, QN, S Low Augustus <5 umol/L 9-30 Jovana l North Plasma umol/L [facility] L ab (Internal) : [address] 12/31/2019 Vitamin B12, S High Vit B12 995.0 pg/mL 239.0-9 31 Final North Serum .0 pg/mL [facility] L ab (Internal) : [address] 12/31/2019 Folate, S ? Folate >17.00 NG/mL 2.76-20.0 Fi nal [facility] Serum 0 NG/mL [facility] L ab (Internal) : [address] Past Encounters 04/25/2021 Pain in Left Knee Abhijit Rashid MD: [address] [place] [address], [address] [phone], Ph. 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 03/07/2021 Abhijit Rashid MD: [address] [place] [address], [address] [phone], Ph. 02/20/2021 Abhijit Rashid MD: [address] [place] [address], [address] [phone], Ph. 02/13/2021 Abhijit Rashid MD: [address] [place] [address], [address] [phone], Ph. Social History Tobacco Smoking Status Never Smoker Vaccine List None recorded. Plan of Care Reminders Provider Appointments None ? ? recorded. Lab None ? ? recorded. Referral None ? ? recorded. Procedures None ? ? recorded. Surgeries None ? ? recorded. Imaging None ? ? recorded. Vitals None recorded.
[2021-11-13 16:29] LABS: Abs Immature Grans 0.03 10^3/uL (0.0-0.06); Absolute Basophil Count 0.05 10^3/uL (0.0-0.2); Absolute Eosinophil Count 0.16 10^3/uL (0.0-0.7); Absolute Lymphocyte Count 1.79 10^3/uL (1.2-3.4); Absolute Neutrophil Count 5.76 10^3/uL (1.2-6.7); Basophils % 0.6; Eosinophils % 1.9; HCT 41.2 % (40.0-50.0); HGB 13.6 g/dL (13.5-17.5); Immature Grans % 0.3; Lymphocytes % 20.8; MCH 33.9 pg (27.0-33.0); MCV 102.7 fL (80-95); MPV 10.7 fL (8.0-11.0); Monocytes % 9.3; Neutrophils % 67.1; Nucleated RBC 0 %; Platelet Count 259 10^3/uL (130-400); RBC 4.01 10^6/uL (4.36-5.78); RDW 12.7 % (11.8-14.1); RDW-SD 48.6 fL; WBC 8.59 10^3/uL (4.4-10.8)
[2021-11-13 23:20] LABS: Calculated LDL 72 mg/dL (<100); Cholesterol 153 mg/dL (<200); HDL Cholesterol 68 mg/dL (40-60); Triglyceride 68 mg/dL (<150)
[2021-11-13 23:27] LABS: Hemoglobin A1C 5.7 % (<5.7)
[2021-11-14 10:06] LABS: Hepatitis B Surface Ag Negative (Negative)
[2021-11-14 10:41] LABS: Hepatitis C Ab w Rflx HCV PCR Negative (Negative)
[2021-11-14 13:02] LABS: HIV-1/2 Ag & Ab Screen Negative (Negative)
== END 2021-11-13 15:57 | disposition home or self-care (01) ==
LOC: LBN 15:56
PROVIDERS: PCP Family Medicine; Visit Provider Family Medicine
DX: Z00.00 Encounter for general adult medical examination without abnormal findings (principal); Z13.220 Encounter for screening for lipoid disorders; Z13.1 Encounter for screening for diabetes mellitus; Z11.59 Encounter for screening for other viral diseases; Z11.4 Encounter for screening for human immunodeficiency virus [HIV]
CPT/HCPCS: 80061; 86803; 87340; 87389; 83036; 85025

== ENCOUNTER 2021-11-19 12:20 | Emergency (ER) | payer MEDICAID, SELFPAY ==
--- OUTSIDE RECORDS SUMMARY | 2021-11-19 12:32 | XMS_ITS ---
:1965 Author Care Team Providers Name Role Phone [facility] Primary Care Provider [phone] Allergies Code Code System Name Reaction Severity [...] not available 04/25/2021 XR, Knee, 3 View [facility] Radiology (Internal) [address] [place], [place] [phone] (Work Place) Results Lab Results Date Name Specimen Result Interpretation Description Value Range Status Address ? 03/21/2021 CBC W/ Auto BLD ? Wbc 7.0 10*3/uL 5.0-10.0 F inal [place] Diff 10*3/uL [facility] Hospital L ab (Internal) : [address] ? ? BLD Low Rbc 4.38 10*6/uL 4.60-6.00 Final N orth 10*6/uL [facility] L ab (Internal) : [address] ? ? BLD Low Hgb 12.5 g/dL 14.0-18.0 Final Nort h g/dL [facility] L ab (Internal) : [address] ? ? BLD Low Hct 40.0 % 41.0-51.0 Final [facility] L ab (Internal) : [address] ? ? BLD ? Mcv 91.3 fL 80.0-96.0 Final [facility] L ab (Internal) : [address] ? ? BLD ? Mch 28.5 pg 26.0-32.0 Final [facility] L ab (Internal) : [address] ? ? BLD ? Mchc 31.3 g/dL 31.0-35.0 Final Nort h g/dL [facility] L ab (Internal) : [address] ? ? BLD ? Rdw 13.4 % 11.5-14.5 Final [facility] L ab (Internal) : [address] ? ? BLD ? Plt 437 10*3/uL 130-450 Final Nort h 10*3/uL [facility] L ab (Internal) : [address] 03/21/2021 CRP, High S High Rcrp 4.01 mg/dL 0.10-0.30 [facility] Sensitivity, mg/dL Coun try Serum or Hospital Lab Plasma (Internal) : [address] t 03/21/2021 Differential BLD ? Polys 45 % 40-75 % Final [place] , [facility], [facility] Blood Hospital L ab (Internal) : [address] ? ? BLD ? Bands 0 % 0-5 % Final [facility] Hospital L ab (Internal) : [address] ? ? BLD ? Lymphs 42 % 20-50 % Final [facility] Hospital L ab (Internal) : [address] ? ? BLD ? [place] 8 % 2-10 % Final [facility] Hospital L ab (Internal) : [address] ? ? BLD ? Eos 2 % 0-6 % Final [facility] L ab (Internal) : [address] ? ? BLD ? Baso 1 % 0-1 % Final [facility] L ab (Internal) : [address] ? ? BLD ? Atyp 3 % ? Final [facility] L ab (Internal) : [address] ? ? BLD ? Plts, adequate adequate Final [facility] Hospital L ab (Internal) : [address] ? ? BLD ? RBC normal normal Final [facility] Hospital L ab (Internal) : [address] t 03/21/2021 Neutrophil BLD ? Anc-manua 3.15 10*3/uL ? Final [place] Count, [facility] Absolute Hospital Lab (Anc), Blood (Int ernal): [address] t 03/21/2021 Nlr-manual BLD ? Nlr - 1.07 0.00-3.20 Final [facility] Hospital L ab (Internal) : [address] t 03/21/2021 ESR BLD High Esr 52 mm/h 0-20 mm/h Final No rth (Erythrocyte Coun try Sedimentatio Hosp ital Lab n Rate), (Interna l): Blood [address] t 02/01/2021 Cbc BLD High Wbc 10.3 10*3/uL 5.0-10.0 Final North 10*3/uL [facility] Hospital L ab (Internal) : [address] ? ? BLD ? Rbc 5.53 10*6/uL 4.60-6.00 Final N orth 10*6/uL [facility] L ab (Internal) : [address] ? ? BLD ? Hgb 17.1 g/dL 14.0-18.0 Final Nort h g/dL [facility] L ab (Internal) : [address] ? ? BLD High Hct 52.5 % 41.0-51.0 Final [facility] L ab (Internal) : [address] ? ? BLD ? Mcv 94.9 fL 80.0-96.0 Final [facility] L ab (Internal) : [address] ? ? BLD ? Mch 30.9 pg 26.0-32.0 Final [facility] L ab (Internal) : [address] ? ? BLD ? Mchc 32.6 g/dL 31.0-35.0 Final Nort h g/dL [facility] L ab (Internal) : [address] ? ? BLD ? Rdw 13.3 % 11.5-14.5 Final [facility] L ab (Internal) : [address] ? ? BLD ? Plt 174 10*3/uL 130-450 Final Nort h 10*3/uL [facility] L ab (Internal) : [address] ? ? BLD ? Anc 7.61 10*3/uL ? Final Nort h [facility] L ab (Internal) : [address] t 01/31/2021 CBC W/ Auto BLD High Wbc 11.6 10*3/uL 5.0-10.0 Final North Diff 10*3/uL [facility] L ab (Internal) : [address] ? ? BLD Low Rbc 3.01 10*6/uL 4.60-6.00 Final N orth 10*6/uL [facility] Hospital L ab (Internal) : [address] ? ? BLD Low Hgb 9.3 g/dL 14.0-18.0 Final [place] g/dL [facility] Hospital L ab (Internal) : [address] ? ? BLD Low Hct 27.9 % 41.0-51.0 Final [facility] L ab (Internal) : [address] ? ? BLD ? Mcv 92.7 fL 80.0-96.0 Final [facility] L ab (Internal) : [address] ? ? BLD ? Mch 30.9 pg 26.0-32.0 Final [facility] L ab (Internal) : [address] ? ? BLD ? Mchc 33.3 g/dL 31.0-35.0 [facility] L ab (Internal) : [address] ? ? BLD ? Rdw 13.2 % 11.5-14.5 Final [facility] L ab (Internal) : [address] ? ? BLD ? Plt 364 10*3/uL 130-450 Final Nort h 10*3/uL [facility] Hospital L ab (Internal) : [address] ? ? BLD ? Anc 8.71 10*3/uL ? Final Nort [facility] L ab (Internal) : [address] ? ? BLD High Nlr 5.62 0.00-3.20 Final [facility] L ab (Internal) : [address] ? ? BLD ? Neutro 75.0 % 40.0-75.0 Final [facility] L ab (Internal) : [address] ? ? BLD Low Lymph 13.4 % 20.0-50.0 Final [facility] L ab (Internal) : [address] ? ? BLD High [place] 10.2 % 2.0-10.0 Final [facility] L ab (Internal) : [address] ? ? BLD Low Eos 0.5 % 1.0-6.0 % Final [facility] L ab (Internal) : [address] ? ? BLD ? Baso 0.3 % 0.0-1.0 % Final [facility] L ab (Internal) : [address] ? ? BLD ? Ig 0.6 % 0.0-0.9 % Final [facility] L ab (Internal) : [address] 01/30/2021 Cbc BLD ? Wbc 9.9 10*3/uL 5.0-10.0 Final [place] 10*3/uL [facility] L ab (Internal) : [address] ? ? BLD Low Rbc 3.29 10*6/uL 4.60-6.00 Final N orth 10*6/uL [facility] Hospital L ab (Internal) : [address] ? ? BLD Low Hgb 10.2 g/dL 14.0-18.0 Final Nort h g/dL [facility] L ab (Internal) : [address] ? ? BLD Low Hct 31.0 % 41.0-51.0 Final [facility] L ab (Internal) : [address] ? ? BLD ? Mcv 94.2 fL 80.0-96.0 Final [facility] L ab (Internal) : [address] ? ? BLD ? Mch 31.0 pg 26.0-32.0 Final [facility] L ab (Internal) : [address] ? ? BLD ? Mchc 32.9 g/dL 31.0-35.0 Final Nort h g/dL [facility] L ab (Internal) : [address] ? ? BLD ? Rdw 13.4 % 11.5-14.5 Final [facility] L ab (Internal) : [address] ? ? BLD ? Plt 254 10*3/uL 130-450 Final Nort h 10*3/uL [facility] L ab (Internal) : [address] ? ? BLD ? Anc 6.96 10*3/uL ? Final Nort h [facility] Hospital L ab (Internal) : [address] 01/30/2021 Vancomycin, S Low Vanco, 13.7 ug/mL 15.0-20.0 Final [place] Trough, Trough ug/mL [facility] Hospital L ab (Internal) : [address] 01/29/2021 Cbc BLD ? Wbc 9.2 10*3/uL 5.0-10.0 Final [place] 10*3/uL [facility] Hospital L ab (Internal) : [address] ? ? BLD Low Rbc 2.89 10*6/uL 4.60-6.00 Final N orth 10*6/uL [facility] Hospital L ab (Internal) : [address] ? ? BLD Low Hgb 9.0 g/dL 14.0-18.0 Final [place] g/dL [facility] L ab (Internal) : [address] ? ? BLD Low Hct 27.4 % 41.0-51.0 Final [facility] L ab (Internal) : [address] ? ? BLD ? Mcv 94.8 fL 80.0-96.0 Final [facility] L ab (Internal) : [address] ? ? BLD ? Mch 31.1 pg 26.0-32.0 Final [facility] L ab (Internal) : [address] ? ? BLD ? Mchc 32.8 g/dL 31.0-35.0 Final Nort h g/dL [facility] L ab (Internal) : [address] ? ? BLD ? Rdw 13.3 % 11.5-14.5 Final [facility] L ab (Internal) : [address] ? ? BLD ? Plt 213 10*3/uL 130-450 Final Nort h 10*3/uL [facility] L ab (Internal) : [address] ? ? BLD ? Anc 6.63 10*3/uL ? Final Nort h [facility] L ab (Internal) : [address] t 01/29/2021 Vancomycin, S Low Vanco, 11.0 ug/mL 15.0-20.0 Final [place] Trough, Trough ug/mL [facility] Hospital L ab (Internal) : [address] t 01/28/2021 Cbc BLD High Wbc 11.9 10*3/uL 5.0-10.0 Final North 10*3/uL [facility] Hospital L ab (Internal) : [address] ? ? BLD Low Rbc 3.15 10*6/uL 4.60-6.00 Final N orth 10*6/uL [facility] Hospital L ab (Internal) : [address] ? ? BLD Low Hgb 9.8 g/dL 14.0-18.0 Final North g/dL [facility] Hospital L ab (Internal) : [address] ? ? BLD Low Hct 29.5 % 41.0-51.0 Final [facility] L ab (Internal) : [address] ? ? BLD ? Mcv 93.7 fL 80.0-96.0 Final [facility] L ab (Internal) : [address] ? ? BLD ? Mch 31.1 pg 26.0-32.0 Final [facility] L ab (Internal) : [address] ? ? BLD ? Mchc 33.2 g/dL 31.0-35.0 Final Nort h g/dL [facility] Hospital L ab (Internal) : [address] ? ? BLD ? Rdw 13.2 % 11.5-14.5 Final [facility] L ab (Internal) : [address] ? ? BLD ? Plt 229 10*3/uL 130-450 Final Nort h 10*3/uL [facility] Hospital L ab (Internal) : [address] ? ? BLD ? Anc 9.55 10*3/uL ? Final Nort h [facility] L ab (Internal) : [address] 01/27/2021 CBC W/ Auto BLD High Wbc 12.2 10*3/uL 5.0-10.0 Final North Diff 10*3/uL [facility] Hospital L ab (Internal) : [address] ? ? BLD Low Rbc 3.22 10*6/uL 4.60-6.00 Final N orth 10*6/uL [facility] Hospital L ab (Internal) : [address] ? ? BLD Low Hgb 10.2 g/dL 14.0-18.0 Final Nort h g/dL [facility] Hospital L ab (Internal) : [address] ? ? BLD Low Hct 30.7 % 41.0-51.0 Final [facility] Hospital L ab (Internal) : [address] ? ? BLD ? Mcv 95.3 fL 80.0-96.0 Final [facility] Hospital L ab (Internal) : [address] ? ? BLD ? Mch 31.7 pg 26.0-32.0 Final [facility] Hospital L ab (Internal) : [address] ? ? BLD ? Mchc 33.2 g/dL 31.0-35.0 Final Nort h g/dL [facility] Hospital L ab (Internal) : [address] ? ? BLD ? Rdw 13.0 % 11.5-14.5 Final [facility] Hospital L ab (Internal) : [address] ? ? BLD ? Plt 194 10*3/uL 130-450 Final Nort h 10*3/uL [facility] Hospital L ab (Internal) : [address] 01/27/2021 Differential BLD High Polys 87 % 40-75 % Final [facility] Blood Hospital L ab (Internal) : [address] ? ? BLD ? Bands 1 % 0-5 % Final [facility] Hospital L ab (Internal) : [address] ? ? BLD Low Lymphs 10 % 20-50 % Final [facility] Hospital L ab (Internal) : [address] ? ? BLD ? [place] 2 % 2-10 % Final [facility] Hospital L ab (Internal) : [address] ? ? BLD ? Eos 0 % 0-6 % Final [facility] Hospital L ab (Internal) : [address] ? ? BLD ? Baso 0 % 0-1 % Final [facility] Hospital L ab (Internal) : [address] ? ? BLD ? Atyp 0 % ? Final [facility] Hospital L ab (Internal) : [address] ? ? BLD ? Plts, adequate adequate Final [place] Est. [facility] Hospital L ab (Internal) : [address] ? ? BLD ? RBC normal normal Final [place] Morphology [facility] Hospital L ab (Internal) : [address] t 01/27/2021 Neutrophil BLD ? Anc-manua 10.74 10*3/uL ? Final [place] Count, l [facility] Hospital Lab (Anc), Blood (Int ernal): [address] t 01/27/2021 Nlr-manual BLD High Nlr - 8.80 0.00-3.20 Final [facility] Hospital L ab (Internal) : [address] 01/27/2021 Vancomycin, S Low Vanco, <6.0 ug/mL 15.0-20.0 Final [place] Trough, Trough ug/mL [facility] Hospital L ab (Internal) : [address] 01/26/2021 CBC W/ Auto BLD High Wbc 12.0 10*3/uL 5.0-10.0 Final [place] Diff 10*3/uL [facility] L ab (Internal) : [address] ? ? BLD Low Rbc 3.70 10*6/uL 4.60-6.00 Final N orth 10*6/uL [facility] L ab (Internal) : [address] ? ? BLD Low Hgb 11.5 g/dL 14.0-18.0 Final Nort h g/dL [facility] L ab (Internal) : [address] ? ? BLD Low Hct 35.3 % 41.0-51.0 Final [facility] L ab (Internal) : [address] ? ? BLD ? Mcv 95.4 fL 80.0-96.0 Final [facility] L ab (Internal) : [address] ? ? BLD ? Mch 31.1 pg 26.0-32.0 Final [place] pg [facility] L ab (Internal) : [address] ? ? BLD ? Mchc 32.6 g/dL 31.0-35.0 Final Nort h g/dL [facility] Hospital L ab (Internal) : [address] ? ? BLD ? Rdw 13.1 % 11.5-14.5 Final [facility] Hospital L ab (Internal) : [address] ? ? BLD ? Plt 159 10*3/uL 130-450 Final Nort h 10*3/uL [facility] Hospital L ab (Internal) : [address] 01/26/2021 Differential BLD High Polys 94 % 40-75 % Final [place] , Manual, [facility] Blood Hospital L ab (Internal) : [address] ? ? BLD ? Bands 0 % 0-5 % Final [facility] Hospital L ab (Internal) : [address] ? ? BLD Low Lymphs 3 % 20-50 % Final [facility] Hospital L ab (Internal) : [address] ? ? BLD ? [place] 3 % 2-10 % Final [facility] Hospital L ab (Internal) : [address] ? ? BLD ? Eos 0 % 0-6 % Final [facility] L ab (Internal) : [address] ? ? BLD ? Baso 0 % 0-1 % Final [facility] Hospital L ab (Internal) : [address] ? ? BLD ? Atyp 0 % ? Final [facility] L ab (Internal) : [address] ? ? BLD ? Plts, adequate adequate Final [facility] Hospital L ab (Internal) : [address] ? ? BLD ? RBC normal normal Final [facility] Hospital L ab (Internal) : [address] 01/26/2021 Neutrophil BLD ? Anc-manua 11.30 10*3/uL ? Final [place] Count, [facility] Absolute Hospital Lab (Anc), Blood (Int ernal): [address] 01/26/2021 Nlr-manual BLD High Nlr - 31.33 0.00-3.20 Final [facility] Hospital L ab (Internal) : [address] 01/25/2021 Culture, BLD ? Final microbiology ? Final [place] Blood 1 results [facility] Hospital L ab (Internal) : [address] t 01/25/2021 Lactic Acid, S High La 3.0 mmol/L 0.7-2.1 Fi nal [place] Blood mmol/L [facility] Hospital L ab (Internal) : [address] t 01/25/2021 CBC W/ Auto BLD High Wbc 16.3 10*3/uL 5.0-10.0 Final [place] Diff 10*3/uL [facility] (Internal) : [address] ? ? BLD Low Rbc 4.07 10*6/uL 4.60-6.00 Final N orth 10*6/uL [facility] Hospital L ab (Internal) : [address] ? ? BLD Low Hgb 12.8 g/dL 14.0-18.0 Final Nort h g/dL [facility] L ab (Internal) : [address] ? ? BLD Low Hct 38.1 % 41.0-51.0 Final [facility] L ab (Internal) : [address] ? ? BLD ? Mcv 93.6 fL 80.0-96.0 Final [facility] L ab (Internal) : [address] ? ? BLD ? Mch 31.4 pg 26.0-32.0 Final [place] pg [facility] L ab (Internal) : [address] ? ? BLD ? Mchc 33.6 g/dL 31.0-35.0 Final Nort h g/dL [facility] Hospital L ab (Internal) : [address] ? ? BLD ? Rdw 12.8 % 11.5-14.5 Final [facility] L ab (Internal) : [address] ? ? BLD ? Plt 216 10*3/uL 130-450 Final Nort h 10*3/uL [facility] Hospital L ab (Internal) : [address] 01/25/2021 CMP, Serum S ? g/r 104 mg/dL 74-106 Final North or Plasma mg/dL [facility] Hospital L ab (Internal) : [address] ? ? S ? Bun 14 mg/dL 9-20 Final [place] mg/dL [facility] Hospital L ab (Internal) : [...] Na 133 mmol/L 137-145 Final [place] mmol/L [facility] Hospital L ab (Internal) : [address] ? ? S ? K 3.8 mmol/L 3.5-5.1 Final [place] mmol/L [facility] L ab (Internal) : [address] ? ? S Low Cl 92 mmol/L 98-107 Final [place] mmol/L [facility] Hospital L ab (Internal) : [...] Tbil 0.5 mg/dL 0.2-1.3 Final [place] mg/dL [facility] Hospital L ab (Internal) : [address] ? ? S ? Alp 56 U/L 50-136 Final [place] U/L [facility] Hospital L ab (Internal) : [address] ? ? S Low Alt 13 U/L 21-72 U/L Final [place] (Sgpt) [facility] Hospital L ab (Internal) : [address] ? ? S ? Ast 30 U/L 17-59 U/L Final [place] (Sgot) [facility] Hospital L ab (Internal) : [address] t 01/25/2021 Culture, BLD ? Final microbiology ? Final [place] Blood 2 results [facility] (Internal) : [address] t 01/25/2021 Differential BLD High Polys 83 % 40-75 % Final [facility], [facility] Blood Hospital L ab (Internal) : [address] ? ? BLD ? Bands 5 % 0-5 % Final [facility] L ab (Internal) : [address] ? ? BLD Low Lymphs 4 % 20-50 % Final [facility] Hospital L ab (Internal) : [address] ? ? BLD ? [place] 7 % 2-10 % Final [facility] ab (Internal) : [address] ? ? BLD ? Eos 0 % 0-6 % Final [facility] ab (Internal) : [address] ? ? BLD ? Baso 0 % 0-1 % Final [facility] ab (Internal) : [address] ? ? BLD ? Atyp 0 % ? Final [facility] ab (Internal) : [address] ? ? BLD High [place] 1 % 0-0 % Final [facility] ab (Internal) : [address] ? ? BLD ? Plts, adequate adequate Final [facility] ab (Internal) : [address] ? ? BLD ? RBC normal normal Final [facility] Hospital L ab (Internal) : [address] 01/25/2021 Neutrophil BLD ? Anc-manua 14.34 10*3/uL ? [facility] [place] [facility] ([facility]), Blood (Int ernal): [address] t 01/25/2021 Nlr-manual BLD High Nlr - 22.00 0.00-3.20 Final [facility] L ab (Internal) : [address] t 01/25/2021 Cell Count, MISC ? Source, synovial ? Jovana l [place] Body Fluid Bf fluid Countr Hospital L ab (Internal) : [address] ? ? MISC ? Color, Bf yellow ? Final [facility] ab (Internal) : [address] ? ? MISC ? Clarity cloudy ? Final [facility] Hospital ab (Internal) : [address] ? ? MISC ? WBC, Bf 56.33 10*3/uL ? Final N orth (Auto) [facility] (Internal) : [address] ? ? MISC ? RBC, Bf 0.01 10*6/uL ? Final No rth (Auto) [facility] (Internal[facility] : [address] ? ? MISC ? Polys, Bf 89 % ? Final [place] (Auto) [facility] (Internal) : [address] ? ? MISC ? Lymphs, 9 % ? Final [place] Bf(auto) [facility] (Internal) : [address] ? ? MISC ? Monocyte, 2 % ? Final [place] Bf (Auto) [facility] (Internal) : [address] ? ? MISC ? Eos, Bf 0 % ? Final [place] (Auto) [facility] (Internal) : [address] ? ? MISC ? Baso, Bf 0 % ? Final [place] (Auto) [facility] (Internal) : [address] t 01/25/2021 Culture, N/A ? Final microbiology ? Final [place] Aerobic, results [facility] Lab (Internal) : [address] 01/25/2021 CRP, High S High Rcrp 57.39 mg/dL 0.10-0.30 Fi [facility] Sensitivity, mg/dL Coun try Serum or Hospital Lab Plasma (Internal) : [address] 01/25/2021 Respiratory FLUID ? Final microbiology ? Fi nal [place] Virus Panel results Coun try Hospital ab (Internal) : [address] 01/25/2021 Culture, N/A ? Final microbiology ? Final [place] Anaerobic, results Count ry Isolate Hospital Lab (Internal) : [address] 01/25/2021 Bacteria N/A ? Final microbiology ? Final [place] Identificati results Cou ntry on, Hospital L ab Unspecified (Inte rnal): Specimen [address] t 01/25/2021 Bacteria N/A ? Final microbiology ? Final [place] Identificati results Cou ntry on, Hospital L ab Unspecified (Inte rnal): Specimen [address] 01/02/2020 CBC W/ Auto BLD ? Wbc 8.9 10*3/uL 5.0-10.0 F inal [place] Diff 10*3/uL [facility] Hospital L ab (Internal) : [address] ? ? BLD Low Rbc 3.78 10*6/uL 4.60-6.00 Final N orth 10*6/uL [facility] Hospital L ab (Internal) : [address] ? ? BLD Low Hgb 12.4 g/dL 14.0-18.0 Final Nort h g/dL [facility] Hospital L ab (Internal) : [address] ? ? BLD Low Hct 35.5 % 41.0-51.0 Final [facility] L ab (Internal) : [address] ? ? BLD ? Mcv 93.9 fL 80.0-96.0 Final [facility] L ab (Internal) : [address] ? ? BLD High Mch 32.8 pg 26.0-32.0 Final [facility] Hospital L ab (Internal) : [address] ? ? BLD ? Mchc 34.9 g/dL 31.0-35.0 Final Nort h g/dL [facility] Hospital L ab (Internal) : [address] ? ? BLD ? Rdw 11.5 % 11.5-14.5 Final [facility] L ab (Internal) : [address] ? ? BLD ? Plt 261 10*3/uL 130-450 Final Nort h 10*3/uL [facility] L ab (Internal) : [address] ? ? BLD ? Anc 5.65 10*3/uL ? Final Nort h [facility] Hospital L ab (Internal) : [address] ? ? BLD ? Nlr 2.36 0.00-3.20 Final [facility] L ab (Internal) : [address] ? ? BLD ? Neutro 63.9 % 40.0-75.0 Final [facility] % [facility] (Internal) : [address] ? ? BLD ? Lymph 27.0 % 20.0-50.0 Final [facility] Hospital L ab (Internal) : [address] ? ? BLD ? [place] 8.0 % 2.0-10.0 Final [facility] Hospital L ab (Internal) : [address] ? ? BLD Low Eos 0.5 % 1.0-6.0 % Final [facility] Hospital L ab (Internal) : [address] ? ? BLD ? Baso 0.3 % 0.0-1.0 % Final [facility] L ab (Internal) : [address] ? ? BLD ? Ig 0.3 % 0.0-0.9 % Final [facility] L ab (Internal) : [address] t 01/02/2020 Lactic Acid, S ? La 1.6 mmol/L 0.7-2.1 Fi nal [place] Blood mmol/L [facility] L ab (Internal) : [address] 01/02/2020 Ketones, S ? Ketone 0.1 mmol/L 0.0-0.5 Final [place] Quantitative (Bhb mmol/L Coun try , Blood Quant) Hospital Lab (Internal) : [address] t 01/02/2020 CMP, Serum S ? g/r 104 mg/dL 74-106 Final [place] or Plasma mg/dL [facility] Hospital L ab (Internal) : [address] ? ? S Low Bun 6 mg/dL 9-20 Final [place] mg/dL [facility] L ab (Internal) : [address] ? ? S Low Crea 0.50 mg/dL 0.66-1.25 Final Nor th mg/dL [facility] Hospital L ab (Internal) : [address] ? ? S ? Ca 8.7 mg/dL 8.4-10.2 Final [place] mg/dL [facility] L ab (Internal) : [address] ? ? S Low Na 133 mmol/L 137-145 Final [place] mmol/L [facility] L ab (Internal) : [address] ? ? S ? K 3.6 mmol/L 3.5-5.1 Final [place] mmol/L [facility] L ab (Internal) : [address] ? ? S Low Cl 94 mmol/L 98-107 Final [place] mmol/L [facility] Hospital L ab (Internal) : [...] Alb 3.6 g/dL 3.5-5.0 Final [place] g/dL [facility] L ab (Internal) : [address] ? ? S ? Tbil 0.7 mg/dL 0.2-1.3 Final [place] mg/dL [facility] : [address] t ? ? S ? Alp 53 U/L 50-136 Final [place] U/L [facility] (Internal) : [address] t ? ? S Low Alt 17 U/L 21-72 U/L Final [place] (Sgpt) [facility] (Internal) : [address] t ? ? S ? Ast 23 U/L 17-59 U/L Final [place] (Sgot) [facility] (Internal) : [address] 01/02/2020 Magnesium, S ? mg 2.1 mg/dL 1.6-2.3 Final [place] QN, Serum or mg/dL [facility] (Internal) : [address] 01/02/2020 HIV (1+2) Ab S ? HIV 1/2 negative negative F inal [place] Screen, Antigen [facility] Antibody (Interna l): [address] 01/01/2020 CBC W/ Auto BLD ? Wbc 6.9 10*3/uL 5.0-10.0 F inal [place] Diff 10*3/uL [facility] ([facility] : [address] t ? ? BLD Low Rbc 3.62 10*6/uL 4.60-6.00 Final N orth 10*6/uL [facility] (Internal) : [address] ? ? BLD Low Hgb 11.9 g/dL 14.0-18.0 Final [place] g/dL [facility] (Internal) : [address] ? ? BLD Low Hct 34.4 % 41.0-51.0 Final [facility] L [facility] (Internal) : [address] ? ? BLD ? Mcv 95.0 fL 80.0-96.0 Final [facility] L [facility] (Internal) : [address] ? ? BLD High Mch 32.9 pg 26.0-32.0 Final [facility] L [facility] (Internal) : [address] ? ? BLD ? Mchc 34.6 g/dL 31.0-35.0 Final [place] g/dL [facility] (Internal) : [address] ? ? BLD ? Rdw 11.7 % 11.5-14.5 Final [facility] L [facility] (Internal) : [address] ? ? BLD ? Plt 239 10*3/uL 130-450 Final Nort [place] 10*3/uL [facility] (Internal) : [address] ? ? BLD ? Anc 4.07 10*3/uL ? Final [facility] (Internal) : [address] ? ? BLD ? Nlr 2.01 0.00-3.20 Final [facility] L [facility] (Internal) : [address] ? ? BLD ? Neutro 58.8 % 40.0-75.0 Final [facility] (Internal) : [address] ? ? BLD ? Lymph 29.2 % 20.0-50.0 Final [facility] (Internal) : [address] ? ? BLD High [place] 10.4 % 2.0-10.0 Final [facility] : [address] t ? ? BLD Low Eos 0.7 % 1.0-6.0 % Final [facility] (Internal) : [address] t ? ? BLD ? Baso 0.6 % 0.0-1.0 % Final [facility] (Internal) : [address] t ? ? BLD ? Ig 0.3 % 0.0-0.9 % Final [facility] (Internal) : [address] t 01/01/2020 CMP, Serum S High g/r 113 mg/dL 74-106 Final [place] or Plasma mg/dL [facility] ([facility] : [address] t ? ? S ? Bun 15 mg/dL 9-20 Final [place] mg/dL [facility] (Internal) : [address] t ? ? S Low Crea 0.60 mg/dL 0.66-1.25 Final [place] mg/dL [facility] (Internal) : [address] t ? ? S Low Ca 8.1 mg/dL 8.4-10.2 Final [place] mg/dL [facility] : [address] t ? ? S Low Na 136 mmol/L 137-145 Final [place] mmol/L [facility] (Internal) : [address] t ? ? S Low K 3.1 mmol/L 3.5-5.1 Final [place] mmol/L [facility] (Internal) : [address] t ? ? S ? Cl 103 mmol/L 98-107 Final [place] mmol/L [facility] (Internal) : [...] S ? Tbil 0.7 mg/dL 0.2-1.3 Final [place] mg/dL [facility] (Internal) : [address] t ? ? S Low Alp 34 U/L 50-136 Final [place] U/L [facility] (Internal) : [address] t ? ? S Low Alt 14 U/L 21-72 U/L Final [place] (Sgpt) [facility] L ab (Internal) : [address] t ? ? S ? Ast 19 U/L 17-59 U/L Final [place] (Sgot) [facility] L [facility] (Internal) : [address] t 01/01/2020 Lactic Acid, S High La 3.6 mmol/L 0.7-2.1 Fi nal [place] Blood mmol/L [facility] L [facility] (Internal) : [address] 01/01/2020 CBC W/ Auto BLD ? Wbc 8.8 10*3/uL 5.0-10.0 F inal [place] Diff 10*3/uL [facility] L [facility] (Internal) : [address] t ? ? BLD Low Rbc 3.85 10*6/uL 4.60-6.00 Final N orth 10*6/uL [facility] (Internal) : [address] t ? ? BLD Low Hgb 12.7 g/dL 14.0-18.0 Final Nort [facility] g/dL [facility] (Internal) : [address] t ? ? BLD Low Hct 36.5 % 41.0-51.0 Final [place] % [facility] L ab (Internal) : [address] ? ? BLD ? Mcv 94.8 fL 80.0-96.0 Final [place] fL [facility] (Internal) : [address] ? ? BLD High Mch 33.0 pg 26.0-32.0 Final [place] pg [facility] L ab (Internal) : [address] t ? ? BLD ? Mchc 34.8 g/dL 31.0-35.0 Final Nort [facility] g/dL [facility] ([facility] : [address] ? ? BLD ? Rdw 11.8 % 11.5-14.5 Final [facility] L [facility] (Internal) : [address] t ? ? BLD ? Plt 263 10*3/uL 130-450 Final Nort [facility] 10*3/uL [facility] (Internal) : [address] t ? ? BLD ? Anc 5.38 10*3/uL ? Final Nort [facility] (Internal) : [address] ? ? BLD ? Nlr 2.09 0.00-3.20 Final [facility] L [facility] (Internal) : [address] ? ? BLD ? Neutro 61.3 % 40.0-75.0 Final [facility] (Internal) : [address] ? ? BLD ? Lymph 29.2 % 20.0-50.0 Final [facility] (Internal) : [address] ? ? BLD ? [place] 8.4 % 2.0-10.0 Final [facility] (Internal) : [address] ? ? BLD Low Eos 0.5 % 1.0-6.0 % Final [facility] (Internal) : [address] t ? ? BLD ? Baso 0.3 % 0.0-1.0 % Final [facility] (Internal) : [address] t ? ? BLD ? Ig 0.3 % 0.0-0.9 % Final [facility] (Internal) : [address] t 01/01/2020 CMP, Serum S ? g/r 97 mg/dL 74-106 Final [place] or Plasma mg/dL [facility] (Internal) : [address] t ? ? S ? Bun 12 mg/dL 9-20 Final [place] mg/dL [facility] (Internal) : [address] t ? ? S Low Crea 0.60 mg/dL 0.66-1.25 Final [facility] th mg/dL [facility] (Internal) : [address] ? ? S ? Ca 8.4 mg/dL 8.4-10.2 Final [place] mg/dL [facility] : [address] t ? ? S Low Na 133 mmol/L 137-145 Final [place] mmol/L [facility] (Internal) : [...] Tbil 0.5 mg/dL 0.2-1.3 Final [place] mg/dL [facility] (Internal) : [address] t ? ? S Low Alp 48 U/L 50-136 Final [place] U/L [facility] (Internal) : [address] t ? ? S Low Alt 16 U/L 21-72 U/L Final [place] (Sgpt) [facility] (Internal) : [address] t ? ? S ? Ast 19 U/L 17-59 U/L Final [place] (Sgot) [facility] (Internal) : [address] t 01/01/2020 Magnesium, S ? mg 1.9 mg/dL 1.6-2.3 Final [place] QN, Serum or mg/dL [facility] (Internal) : [address] t 12/31/2019 Ammonia, QN, S Low [place] <5 umol/L 9-30 J[place]ana l [place] Plasma umol/L [facility] L [facility] (Internal) : [address] 12/31/2019 Vitamin B12, S High Vit B12 995.0 pg/mL 239.0-9 31 Final [place] Serum .0 pg/mL [facility] L ab (Internal) : [address] 12/31/2019 Folate, S ? Folate >17.00 NG/mL 2.76-20.0 Fi nal [place] Serum 0 NG/mL [facility] L ab (Internal) : [address] Past Encounters 04/25/2021 Pain in Left Knee Abhijit Rashid MD: [address] [place] [address], [address] [phone], Ph. 03/21/2021 Prosthetic Joint Infection Abhijit Rashid MD: [address] [place] [phone], Ph. 03/07/2021 Abhijit Rashid MD: [address] [place] [address], [address] [phone], Ph. 02/20/2021 Abhijit Rashid MD: [address] [place] [address], [address] [phone], Ph. 02/13/2021 Abhijit Rashid MD: [address] [place] [address], [address] [phone], Ph. Social History Tobacco Smoking Status Never Smoker Vaccine List None recorded. Plan of Care Reminders Provider Appointments None ? ? recorded. Lab None ? ? recorded. Referral None ? ? recorded. Procedures None ? ? recorded. Surgeries None ? ? recorded. Imaging None ? ? recorded. Vitals None recorded.
[2021-11-19 13:02] VITALS: BP 129/80; PULSE 87; RESP 18; TEMP 37.1; O2SAT 97
--- NOTE | 2021-11-19 17:16 | ED.GENADUL_ITS ---
Discharge Plan Disposition Patient Disposition: HOME Condition: Stable Discharge Details Clinical Impression: Edema of left lower extremity, Impetigo, Abscess Primary Care Provider: mEa Garcias V ED Provider: Aime Harley Home Meds and New Rx's Prescriptions: New doxycycline hyclate 100 mg tablet 100 mg PO BID 7 Days Qty: 14 0RF Continued buprenorphine-naloxone [Suboxone] 8-2 mg film 1 film sublingual DAILY 0RF venlafaxine [Effexor XR] 150 MG capsule,extended release 24hr 150 mg PO DAILY 0RF nitroglycerin [Nitrostat] 0.4 MG tablet, sublingual 0.4 mg Buccal ONCE 0RF Label Comments: pt states he took 0.4mg at 1215, 1225, 1235 verapamil 120 MG capsule,ext rel. pellets 24 hr 240 mg PO DAILY 0RF cholestyramine (with sugar) [Questran] 4 GM packet 4 g PO BID 0RF clonazepam 2 MG tablet 2 mg PO BID 0RF Label Comments: pt took more than prescribed a few times and ran out of meds 3 days ago. cholecalciferol (vitamin D3) [Vitamin D3] 1,000 UNIT capsule 1,000 unit PO DAILY 0RF omega-3 fatty acids-fish oil 1 EACH capsule 1 ea PO 0RF pukbpbhukngg-dobc-rseil acid [Centrum Complete] 1 EACH tablet 1 tab-cap PO DAILY 0RF hgcaehjtdvi-S2-Pnjbjkwvl serr [Osteo Bi-Flex (5-Loxin)] 1 EACH tablet 1 ea PO DAILY 0RF clonazepam [Klonopin] 2 MG tablet 2 mg PO BID Qty: 4 0RF Discharge Instructions Instructions: Impetigo (ED), Abscess (ED), Edema (ED) Additional Instructions: Please call the phone number tomorrow morning after 7 AM to get your appointment for your ultrasound. You were given a blood thinner so please be cautious for any injuries or cuts and if you fall or strike your head you should return immediately to the emergency department for assessment. Otherwise you may continue to ice and elevate the extremity, take acetaminophen as needed for discomfort, and follow-up with your primary care provider in the next week for reassessment. Referrals: Ema Garcias MD [Primary Care Provider] - 1 week (For reassessment of infection and lower extremity swelling) Medical Decision Making Patient presenting to the emergency department with multiple complaints. Patient's main complaint is swelling to his left leg including knee and ankle. Patient does state increased activity but left leg is significantly more swollen than right. He does have history of knee replacement on that side. Patient reports full range of motion, denies fever, redness. Patient also states that he had a abscess/boil on his right buttock that popped approximately 1 week ago and still is tender and sore. Also in that same on a time patient noted some sores on his face. He does state that he picks this is not uncommon but feels they got infected which he was put on mupirocin cream for which has slowly helped but has helped. Physical exam does show healing abscess to right posterior thigh with surrounding erythema and edema but no further fluctuance is noted. Patient also has sores noted to the perioral area along with the nose consistent with impetigo. Does appear to be improving and is not severe. Area of concern with left knee is swollen but not as warm to touch, no erythema, full range of motion per patient's baseline of knee replacement, patient does h ave bilateral 1+ pitting edema but slightly more on left lower extremity ranging from the calf down where her right leg is just at the ankle. Patient does have slight discomfort with palpation of posterior calf. Suspect possible increase use causing some swelling but given unit laterally we will plan on checking labs. While patient also denies any tick bites given that he states increased activity outside we will also add a tick panel on. Review of labs show slight anemia otherwise unremarkable CBC, ESR of 20, CMP shows slightly decreased BUN at 5 AST at 46 and CRP 8.76. D-dimer is elevated at 1823. Bedside ultrasound was performed and shows full compressibility but discussed with patient risk versus benefit of anticoagulation with Eliquis and outpatient official ultrasound tomorrow. Patient was agreeable to anticoagulation after discussion of risk versus benefit and stated he would return tomorrow for ultrasound. At this time I do not feel that patient has septic joint given no fever, no erythema, and full range of motion of extremity. Patient placed upon doxycycline due to multiple slow healing wounds to the skin and ultrasound order for outpatient imaging with patient to return to the emergency department was also filled out. After discussion of diagnosis and plan of care patient has no further needs, questions, or concerns and states clear understanding to return to the emergency department for any worsening symptoms. Lab Data Lab results reviewed: Yes I reviewed the patient's lab results. Labs: 11/19/21 17:20 Blood Blood Culture - Pending 11/19/21 16:30 Blood Blood Culture - Pending Laboratory Tests Range/Units 11/19/21 11/19/21 11/19/21 17:05 17:05 17:05 WBC (4.4-10.8) 10^3/uL 6.05 RBC (4.36-5.78) 10^6/uL 4.12 L Hgb (13.5-17.5) g/dL 13.8 Hct (40.0-50.0) % 41.8 MCV (80-95) fL 101.5 H MCH (27.0-33.0) pg 33.5 H MCHC (32.0-36.0) % 33.0 RDW (11.8-14.1) % 12.4 Plt Count (130-400) 10^3/uL 339 MPV (8.0-11.0) fL 9.3 Immature Gran % 0.2 Neutrophils % 52.2 Lymphocytes % 37.0 Monocytes % 8.4 Eosinophils % 1.7 Basophils % 0.5 Nucleated RBC % % 0 Absolute Neutrophils (1.2-6.7) 10^3/uL 3.16 Absolute Lymphocytes (1.2-3.4) 10^3/uL 2.24 Absolute Monocytes (0.1-0.8) 10^3/uL 0.51 Absolute Eosinophils (0.0-0.7) 10^3/uL 0.10 Absolute Basophils (0.0-0.2) 10^3/uL 0.03 ESR (0-20) mm/hr 20 D-Dimer (<500) ng/mlFEU Sodium (136-145) mmol/L 139 Potassium (3.5-5.1) mmol/L 4.2 Chloride (98-107) mmol/L 102 Carbon Dioxide (21.0-32.0) mmol/L 30.8 Anion Gap (3-11) mmol/L 6.2 BUN (7-18) mg/dL 5 L Creatinine (0.70-1.30) mg/dL 0.7 Estimated GFR/1.73 m2 (mL/min/1.73m2) >= 60.00 Glucose (74-106) mg/dL 100 Calcium (8.5-10.1) mg/dL 8.9 Magnesium (1.8-2.4) mg/dL 2.1 Total Bilirubin (0.2-1.0) mg/dL 0.3 AST (15-37) U/L 46 H ALT (16-63) U/L 46 Alkaline Phosphatase (46-116) U/L 69 C-Reactive Protein (0.0-0.3) mg/dL 0.76 H Total Protein (6.4-8.2) g/dL 7.1 Albumin (3.4-5.0) g/dL 3.5 Range/Units 11/19/21 17:05 WBC (4.4-10.8) 10^3/uL RBC (4.36-5.78) 10^6/uL Hgb (13.5-17.5) g/dL Hct (40.0-50.0) % MCV (80-95) fL MCH (27.0-33.0) pg MCHC (32.0-36.0) % RDW (11.8-14.1) % Plt Count (130-400) 10^3/uL MPV (8.0-11.0) fL Immature Gran % Neutrophils % Lymphocytes % Monocytes % Eosinophils % Basophils % Nucleated RBC % % Absolute Neutrophils (1.2-6.7) 10^3/uL Absolute Lymphocytes (1.2-3.4) 10^3/uL Absolute Monocytes (0.1-0.8) 10^3/uL Absolute Eosinophils (0.0-0.7) 10^3/uL Absolute Basophils (0.0-0.2) 10^3/uL ESR (0-20) mm/hr D-Dimer (<500) ng/mlFEU 1823 H Sodium (136-145) mmol/L Potassium (3.5-5.1) mmol/L Chloride (98-107) mmol/L Carbon Dioxide (21.0-32.0) mmol/L Anion Gap (3-11) mmol/L BUN (7-18) mg/dL Creatinine (0.70-1.30) mg/dL Estimated GFR/1.73 m2 (mL/min/1.73m2) Glucose (74-106) mg/dL Calcium (8.5-10.1) mg/dL Magnesium (1.8-2.4) mg/dL Total Bilirubin (0.2-1.0) mg/dL AST (15-37) U/L ALT (16-63) U/L Alkaline Phosphatase (46-116) U/L C-Reactive Protein (0.0-0.3) mg/dL Total Protein (6.4-8.2) g/dL Albumin (3.4-5.0) g/dL HPI General Mode of arrival: ambulatory . Date/Time Provider Initiated Documentation: 11/19/21 16:03 . Limitations to Documentation: no limitations . Information obtained by: RN notes reviewed and old records reviewed . History of Present Illness 56 year old M presents to the emergency department with the chief complaint of left knee swelling, described as moderate and similar to prior episodes, with intensity rated at 5. Quality is described as aching, and is localized to the left and lower extremity. Patient distal. Patient started experiencing this week(s) (1) and it has been constant. improves with Cold therapy improves symptom(s), and Rest improves symptom(s), Other factors that worsen symptoms (increased activity) . Patient notes malaise and rash; denies chest pain and cough. Patient did receive the following treatments prior to arrival, other (Mupirocin) Related Data Home Medications Medication Instructions Recorded Confirmed cholecalciferol (vitamin D3) 25 1,000 unit PO DAILY 10/20/16 06/03/17 mcg (1,000 unit) capsule (Vitamin D3) cholestyramine (with sugar) 4 gram 4 g PO BID packet 10/20/16 06/03/17 powder for susp in a packet (Questran) clonazepam 2 mg tablet 2 mg PO BID tab-cap 10/20/16 06/03/17 glucosamine [id number]-H5-Udjkcslev 1 ea PO DAILY 10/20/16 06/03/17 camelia 1,500 mg-400 unit-100 mg tablet (Osteo Bi-Flex (5-Loxin)) multivitamin-ferrous 1 tab-cap PO DAILY tab-cap 10/20/16 06/03/17 fumarate-folic acid 18 mg-400 mcg tablet (Centrum Complete) nitroglycerin 0.4 mg sublingual 0.4 mg BUCCAL ONCE tab-cap 10/20/16 06/03/17 tablet (Nitrostat) omega-3 fatty acids-fish oil 300 1 ea PO 10/20/16 mg-1,000 mg capsule venlafaxine 150 mg 150 mg PO DAILY tab-cap 10/20/16 06/03/17 capsule,extended release 24 hr (Effexor XR) verapamil 120 mg 24 hr 240 mg PO DAILY tab-cap 10/20/16 06/03/17 capsule,extended release clonazepam 2 mg tablet (Klonopin) 2 mg PO BID #4 tab 06/03/17 buprenorphine 8 mg-naloxone 2 mg 1 film SUBLINGUAL DAILY 08/13/20 08/13/20 sublingual film (Suboxone) doxycycline hyclate 100 mg tablet 100 mg PO BID 7 Days #14 tab 11/19/21 Previous Rx's Medication Instructions Recorded clonazepam 2 mg tablet (Klonopin) 2 mg PO BID #4 tab 06/03/17 doxycycline hyclate 100 mg tablet 100 mg PO BID 7 Days #14 tab 11/19/21 Allergies Allergy/AdvReac Type Severity Reaction Status Date / Time NSAIDS (Non-Steroidal AdvReac Verified 11/19/21 13:08 Anti-Inflamma General Stated Complaint: GenMedical ROHITH: 4 Review of Systems Constitutional Constitutional: Denies fever(s), Denies headache(s) and Reports malaise ENT Ears, Nose, Mouth, and Throat: Denies dizziness and Denies headache(s) Cardiovascular Cardiovascular: Denies chest pain, Denies syncope, Denies leg ulcers, Reports leg edema, Denies dyspnea and Denies dyspnea on exertion Respiratory Respiratory: Denies dyspnea and Denies dyspnea on exertion Gastrointestinal Gastrointestinal: Denies abdominal pain, Denies nausea and Denies vomiting Musculoskeletal Musculoskeletal: Reports as per HPI, Denies myalgias and Reports joint swelling Integumentary/Breasts Skin/Breast: Reports furuncle and Reports rash Neurologic Neurologic: Denies dizziness, Denies syncope and Denies headache(s) PFSH All Active Problems (Updated 11/19/21 @ 18:54 by Aime Harley NP) Edema of left lower extremity (Acute) Impetigo (Acute) Abscess (Acute) Foot osteomyelitis, left (Acute) Medical History ADD (attention deficit disorder) Anxiety Chest discomfort Chronic low back pain Chronic pain syndrome Dental infection Depression H/O total hip arthroplasty 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 History of total left knee replacement HTN (hypertension) Hyperlipidemia Knee pain Lesion of penis Lumbar facet joint pain Medication monitoring encounter Rib pain on left side Unintentional weight loss Urinary disorder Social History Smoking/Tobacco Use Status: Current every day Tobacco Type: cigarettes Smoking risk assessment performed?: Yes Alcohol Intake: never Substance use type: marijuana Do you feel safe in your relationship?: Yes Exam Const General: cooperative, no acute distress and not ill appearing Orientation: alert, awake and oriented x3 HENMT Mouth: moist mucous membranes Resp Effort & Inspection: normal respiratory effort, able to speak in complete sentences and no respiratory distress Cardio Rate: regular rate Rhythm: regular rhythm Heart Sounds: S1 normal and S2 normal Pulses: posterior tibial pulses present Skin General skin exam: induration (and erythema to posterior proximal right thigh) Wounds: wounds noted ulceration perioral region without odor, with surrounding erythema and other (also including nose) Neuro General: patient alert, patient awake, patient oriented x3, moves all extremities and no focal motor deficits Sensory Exam: no sensory deficits noted Extrem General: pedal edema bilaterally (left more than right) pitting and 1+ Left lower extremity: knee Details: swelling Location: of the infrapatellar area, normal ROM (per patients baseline) and other (Scarring consistent with knee replacement); Negative for no tenderness, no abrasions and no lacerations Course Vital Signs Vital signs: Vital Signs Temperature 37.1 C 11/19/21 13:02 Pulse 87 11/19/21 13:02 Respiratory Rate 18 11/19/21 13:02 Blood Pressure 129/80 11/19/21 13:02 Pulse Oximetry 97 11/19/21 13:02 Temperature 37.1 C 11/19/21 13:02 Temperature Source Skin 11/19/21 13:02 Pulse 87 11/19/21 13:02 Respiratory Rate 18 11/19/21 13:02 Respiratory Effort 11/19/21 13:08 Blood Pressure 129/80 11/19/21 13:02 Blood Pressure Position Sitting 11/19/21 13:02 Pulse Oximetry 97 11/19/21 13:02 Oxygen Delivery Method Room Air 11/19/21 13:02 Oxygen Flow Rate 0 11/19/21 13:02 Pain Level 5 11/19/21 13:02 Lab/Test Results Lab/Test Results: 11/19/21 16:56 Blood Blood Culture - Pending 11/19/21 16:56 Blood Blood Culture - Pending
[2021-11-19 17:33] LABS: Abs Immature Grans 0.01 10^3/uL (0.0-0.06); Absolute Basophil Count 0.03 10^3/uL (0.0-0.2); Absolute Lymphocyte Count 2.24 10^3/uL (1.2-3.4); Absolute Monocyte Count 0.51 10^3/uL (0.1-0.8); Absolute Neutrophil Count 3.16 10^3/uL (1.2-6.7); Basophils % 0.5; Eosinophils % 1.7; HCT 41.8 % (40.0-50.0); HGB 13.8 g/dL (13.5-17.5); Immature Grans % 0.2; MCH 33.5 pg (27.0-33.0); MCV 101.5 fL (80-95); MPV 9.3 fL (8.0-11.0); Monocytes % 8.4; Neutrophils % 52.2; Nucleated RBC 0 %; Platelet Count 339 10^3/uL (130-400); RBC 4.12 10^6/uL (4.36-5.78); RDW 12.4 % (11.8-14.1); RDW-SD 46.6 fL; WBC 6.05 10^3/uL (4.4-10.8)
[2021-11-19 17:36] LABS: ALT 46 U/L (16-63); AST 46 U/L (15-37); Albumin 3.5 g/dL (3.4-5.0); Alkaline Phosphatase 69 U/L (46-116); Anion Gap 6.2 mmol/L (3-11); BUN 5 mg/dL (7-18); Bilirubin, Total 0.3 mg/dL (0.2-1.0); C-Reactive Protein 0.76 mg/dL (0.0-0.3); CO2 30.8 mmol/L (21.0-32.0); CREATININE 0.7 mg/dL (0.70-1.30); Calcium 8.9 mg/dL (8.5-10.1); Chloride 102 mmol/L (98-107); Glucose 100 mg/dL (74-106); Magnesium 2.1 mg/dL (1.8-2.4); Potassium 4.2 mmol/L (3.5-5.1); Sodium 139 mmol/L (136-145); Total Protein 7.1 g/dL (6.4-8.2)
[2021-11-19 17:37] LABS: ESR 20 mm/hr (0-20)
[2021-11-19 18:05] LABS: D-Dimer 1823 ng/mlFEU (<500)
[2021-11-19 18:11] VITALS: RESP 16
[2021-11-19 18:20] VITALS: BP 127/70; PULSE 78; TEMP 36.8; O2SAT 98
[2021-11-19] MEDS: Apixaban 5 MG TAB 10 MG PO (19:12)
[2021-11-19] MEDS: Doxycycline Hyclate 100 MG CAP PO (19:12)
[2021-11-19 19:24] VITALS: BP 111/90; PULSE 81; RESP 18; TEMP 37.3; O2SAT 97
[2021-11-21 10:54] LABS: Lyme Ab w Rflx to Lyme Confirm Negative (Negative)
[2021-11-22 00:59] LABS: Anaplasma phagocytophilum Negative (Negative); B. miyamotoi PCR Negative (Negative); Babesia divergens/MO-1 Negative (Negative); Babesia duncani Negative (Negative); Babesia microti Negative (Negative); Ehrlichia chaffeensis Negative (Negative); Ehrlichia ewingii/canis Negative (Negative); Ehrlichia muris eauclairensis Negative (Negative)
== END 2021-11-19 19:23 | disposition home or self-care (01) ==
PROVIDERS: Emergency Provider Nurse Practitioner Family; PCP Family Medicine
DX: R60.0 Localized edema (principal); L01.00 Impetigo, unspecified; L02.31 Cutaneous abscess of buttock; I10 Essential (primary) hypertension
CPT/HCPCS: 36415; 80053; 85652; 87040; 87798; 99283; 83735; 85025; 85379; 86140; 86618

== ENCOUNTER 2021-11-20 09:10 | Outpatient (CLI) | payer MEDICAID, SELFPAY ==
--- NOTE | 2021-11-20 | DI.US_ITS ---
Exam(s) US LOWER EXTREMITY VENOUS LT EXAM: US LOWER EXTREMITY VENOUS LT CLINICAL HISTORY: ELEVATED D-DIMER, EDEMA, ? DVT. TECHNIQUE: Lower extremity venous ultrasound performed using grayscale, color-flow, and spectral Do ppler analysis. COMPARISON: No exams were available for comparison FINDINGS: The common femoral, femoral and popliteal veins demonstrate normal compressibility, augmentation, and color Doppler. The posterior tibial veins are patent. No saphenous vein thrombosis or other superfi cial venous thrombosis is seen. No hematoma or Lanza's cyst is seen. IMPRESSION: Negative lower extremity ultrasound. No evidence of DVT. DATA REPOSITORY:
--- OUTSIDE RECORDS SUMMARY | 2021-11-20 09:15 | XMS_ITS ---
:1965 Author Care Team Providers Name Role Phone [facility] Primary Care Provider [phone] Allergies Code Code System Name Reaction Severity [...] not available 04/25/2021 XR, Knee, 3 View [facility] Hospit al Radiology (Internal) [address] [place], [place] [id number] (Work Place) Results Lab Results Date Name Specimen Result Interpretation Description Value Range Status Address ? 03/21/2021 CBC W/ Auto BLD ? Wbc 7.0 10*3/uL 5.0-10.0 F inal [place] Diff 10*3/uL [facility] L ab (Internal) : [address] ? ? BLD Low Rbc 4.38 10*6/uL 4.60-6.00 Final N orth 10*6/uL [facility] L ab (Internal) : [address] ? ? BLD Low Hgb 12.5 g/dL 14.0-18.0 Final Nort h g/dL [facility] L ab (Internal) : [address] ? ? BLD Low Hct 40.0 % 41.0-51.0 Final [facility] L ab (Internal) : [address] ? ? BLD ? Mcv 91.3 fL 80.0-96.0 Final [facility] L ab (Internal) : [address] ? ? BLD ? Mch 28.5 pg 26.0-32.0 Final [facility] L ab (Internal) : [address] t ? ? BLD ? Mchc 31.3 g/dL 31.0-35.0 Final Nort h g/dL [facility] L ab (Internal) : [address] ? ? BLD ? Rdw 13.4 % 11.5-14.5 Final [facility] L ab (Internal) : [address] ? ? BLD ? Plt 437 10*3/uL 130-450 Final Nort h 10*3/uL [facility] L ab (Internal) : [address] 03/21/2021 CRP, High S High Rcrp 4.01 mg/dL 0.10-0.30 [facility] Sensitivity, mg/dL Coun try Serum or Hospital Lab Plasma (Internal) : [address] t 03/21/2021 Differential BLD ? Polys 45 % 40-75 % Final [place] , [facility], [facility] L ab (Internal) : [address] ? ? BLD ? Bands 0 % 0-5 % Final [facility] Hospital L ab (Internal) : [address] t ? ? BLD ? Lymphs 42 % 20-50 % Final [facility] Hospital L ab (Internal) : [address] ? ? BLD ? Vigo 8 % 2-10 % Final [facility] Hospital L ab (Internal) : [address] ? ? BLD ? Eos 2 % 0-6 % Final [facility] L ab (Internal) : [address] ? ? BLD ? Baso 1 % 0-1 % Final [facility] L ab (Internal) : [address] ? ? BLD ? Atyp 3 % ? Final [facility] L ab (Internal) : [address] ? ? BLD ? Plts, adequate adequate Final [facility] L ab (Internal) : [address] ? ? BLD ? RBC normal normal Final [facility] L ab (Internal) : [address] t 03/21/2021 Neutrophil BLD ? Anc-manua 3.15 10*3/uL ? Final [place] Count, [facility] Lab (Anc), Blood (Int ernal): [address] t 03/21/2021 Nlr-manual BLD ? Nlr - 1.07 0.00-3.[address] [facility] L ab (Internal) : [address] t 03/21/2021 ESR BLD High Esr 52 mm/h 0-20 mm/h Final No rth (Erythrocyte Coun try Sedimentatio Hosp ital Lab n Rate), (Interna l): Blood [address] t 02/01/2021 Cbc BLD High Wbc 10.3 10*3/uL 5.0-10.0 Final North 10*3/uL [facility] L ab (Internal) : [address] ? ? BLD ? Rbc 5.53 10*6/uL 4.60-6.00 Final N orth 10*6/uL [facility] L ab (Internal) : [address] ? ? BLD ? Hgb 17.1 g/dL 14.0-18.0 Final Nort h g/dL [facility] L ab (Internal) : [address] ? ? BLD High Hct 52.5 % 41.0-51.0 Final [facility] L ab (Internal) : [address] ? ? BLD ? Mcv 94.9 fL 80.0-96.0 Final [facility] L ab (Internal) : [address] ? ? BLD ? Mch 30.9 pg 26.0-32.0 Final [facility] L ab (Internal) : [address] ? ? BLD ? Mchc 32.6 g/dL 31.0-35.0 Final Nort h g/dL [facility] L ab (Internal) : [address] ? ? BLD ? Rdw 13.3 % 11.5-14.5 Final [facility] L ab (Internal) : [address] ? ? BLD ? Plt 174 10*3/uL 130-450 Final Nort h 10*3/uL [facility] L ab (Internal) : [address] ? ? BLD ? Anc 7.61 10*3/uL ? Final Nort h [facility] L ab (Internal) : [address] t 01/31/2021 CBC W/ Auto BLD High Wbc 11.6 10*3/uL 5.0-10.0 Final North Diff 10*3/uL [facility] L ab (Internal) : [address] ? ? BLD Low Rbc 3.01 10*6/uL 4.60-6.00 Final N orth 10*6/uL [facility] L ab (Internal) : [address] ? ? BLD Low Hgb 9.3 g/dL 14.0-18.0 Final [place] g/dL [facility] L ab (Internal) : [address] ? ? BLD Low Hct 27.9 % 41.0-51.0 Final [facility] L ab (Internal) : [address] ? ? BLD ? Mcv 92.7 fL 80.0-96.0 Final [facility] L ab (Internal) : [address] ? ? BLD ? Mch 30.9 pg 26.0-32.0 Final [facility] L ab (Internal) : [address] ? ? BLD ? Mchc 33.3 g/dL 31.0-35.0 [facility] L ab (Internal) : [address] ? ? BLD ? Rdw 13.2 % 11.5-14.5 Final [facility] L ab (Internal) : [address] ? ? BLD ? Plt 364 10*3/uL 130-450 Final Nort h 10*3/uL [facility] L ab (Internal) : [address] ? ? BLD ? Anc 8.71 10*3/uL ? Final Nort [facility] L ab (Internal) : [address] ? ? BLD High Nlr 5.62 0.00-3.20 Final [facility] L ab (Internal) : [address] ? ? BLD ? Neutro 75.0 % 40.0-75.0 Final [facility] L ab (Internal) : [address] ? ? BLD Low Lymph 13.4 % 20.0-50.0 Final [facility] L ab (Internal) : [address] ? ? BLD High Vigo 10.2 % 2.0-10.0 Final [facility] L ab (Internal) : [address] ? ? BLD Low Eos 0.5 % 1.0-6.0 % Final [facility] L ab (Internal) : [address] ? ? BLD ? Baso 0.3 % 0.0-1.0 % Final [facility] L ab (Internal) : [address] ? ? BLD ? Ig 0.6 % 0.0-0.9 % Final [facility] L ab (Internal) : [address] 01/30/2021 Cbc BLD ? Wbc 9.9 10*3/uL 5.0-10.0 Final [place] 10*3/uL [facility] L ab (Internal) : [address] ? ? BLD Low Rbc 3.29 10*6/uL 4.60-6.00 Final N orth 10*6/uL [facility] L ab (Internal) : [address] ? ? BLD Low Hgb 10.2 g/dL 14.0-18.0 Final Nort h g/dL [facility] L ab (Internal) : [address] ? ? BLD Low Hct 31.0 % 41.0-51.0 Final [facility] L ab (Internal) : [address] ? ? BLD ? Mcv 94.2 fL 80.0-96.0 Final [facility] L ab (Internal) : [address] ? ? BLD ? Mch 31.0 pg 26.0-32.0 Final [facility] L ab (Internal) : [address] ? ? BLD ? Mchc 32.9 g/dL 31.0-35.0 Final Nort h g/dL [facility] L ab (Internal) : [address] ? ? BLD ? Rdw 13.4 % 11.5-14.5 Final [facility] L ab (Internal) : [address] ? ? BLD ? Plt 254 10*3/uL 130-450 Final Nort h 10*3/uL [facility] L ab (Internal) : [address] ? ? BLD ? Anc 6.96 10*3/uL ? Final Nort h [facility] L ab (Internal) : [address] 01/30/2021 Vancomycin, S Low Vanco, 13.7 ug/mL 15.0-20.0 Final [place] Trough, Trough ug/mL [facility] L ab (Internal) : [address] 01/29/2021 Cbc BLD ? Wbc 9.2 10*3/uL 5.0-10.0 Final [place] 10*3/uL [facility] L ab (Internal) : [address] ? ? BLD Low Rbc 2.89 10*6/uL 4.60-6.00 Final N orth 10*6/uL [facility] L ab (Internal) : [address] ? ? BLD Low Hgb 9.0 g/dL 14.0-18.0 Final [place] g/dL [facility] L ab (Internal) : [address] ? ? BLD Low Hct 27.4 % 41.0-51.0 Final [facility] L ab (Internal) : [address] ? ? BLD ? Mcv 94.8 fL 80.0-96.0 Final [facility] L ab (Internal) : [address] ? ? BLD ? Mch 31.1 pg 26.0-32.0 Final [facility] L ab (Internal) : [address] ? ? BLD ? Mchc 32.8 g/dL 31.0-35.0 Final Nort h g/dL [facility] L ab (Internal) : [address] ? ? BLD ? Rdw 13.3 % 11.5-14.5 Final [facility] L ab (Internal) : [address] ? ? BLD ? Plt 213 10*3/uL 130-450 Final Nort h 10*3/uL [facility] L ab (Internal) : [address] ? ? BLD ? Anc 6.63 10*3/uL ? Final Nort h [facility] L ab (Internal) : [address] t 01/29/2021 Vancomycin, S Low Vanco, 11.0 ug/mL 15.0-20.0 Final [place] Trough, Trough ug/mL [facility] L ab (Internal) : [address] t 01/28/2021 Cbc BLD High Wbc 11.9 10*3/uL 5.0-10.0 Final North 10*3/uL [facility] L ab (Internal) : [address] ? ? BLD Low Rbc 3.15 10*6/uL 4.60-6.00 Final N orth 10*6/uL [facility] L ab (Internal) : [address] ? ? BLD Low Hgb 9.8 g/dL 14.0-18.0 Final [place] g/dL [facility] L ab (Internal) : [address] ? ? BLD Low Hct 29.5 % 41.0-51.0 Final [facility] L ab (Internal) : [address] ? ? BLD ? Mcv 93.7 fL 80.0-96.0 Final [facility] L ab (Internal) : [address] ? ? BLD ? Mch 31.1 pg 26.0-32.0 Final [facility] L ab (Internal) : [address] ? ? BLD ? Mchc 33.2 g/dL 31.0-35.0 Final Nort h g/dL [facility] L ab (Internal) : [address] ? ? BLD ? Rdw 13.2 % 11.5-14.5 Final [facility] L ab (Internal) : [address] ? ? BLD ? Plt 229 10*3/uL 130-450 Final Nort h 10*3/uL [facility] L ab (Internal) : [address] ? ? BLD ? Anc 9.55 10*3/uL ? Final Nort h [facility] L ab (Internal) : [address] 01/27/2021 CBC W/ Auto BLD High Wbc 12.2 10*3/uL 5.0-10.0 Final North Diff 10*3/uL [facility] L ab (Internal) : [address] ? ? BLD Low Rbc 3.22 10*6/uL 4.60-6.00 Final N orth 10*6/uL [facility] L ab (Internal) : [address] ? ? BLD Low Hgb 10.2 g/dL 14.0-18.0 Final Nort h g/dL [facility] L ab (Internal) : [address] ? ? BLD Low Hct 30.7 % 41.0-51.[address] [facility] L ab (Internal) : [address] ? ? BLD ? Mcv 95.3 fL 80.0-96.0 Final [facility] L ab (Internal) : [address] ? ? BLD ? Mch 31.7 pg 26.0-32.0 Final [facility] Hospital L ab (Internal) : [address] ? ? BLD ? Mchc 33.2 g/dL 31.0-35.0 Final Nort h g/dL [facility] L ab (Internal) : [address] ? ? BLD ? Rdw 13.0 % 11.5-14.[address] [facility] L ab (Internal) : [address] ? ? BLD ? Plt 194 10*3/uL 130-450 Final Nort h 10*3/uL [facility] L ab (Internal) : [address] 01/27/2021 Differential BLD High Polys 87 % 40-75 % Final [facility] L ab (Internal) : [address] ? ? BLD ? Bands 1 % 0-5 % Final [facility] Hospital L ab (Internal) : [address] ? ? BLD Low Lymphs 10 % 20-50 % Final [facility] Hospital L ab (Internal) : [address] ? ? BLD ? Vigo 2 % 2-10 % Final [facility] Hospital L ab (Internal) : [address] ? ? BLD ? Eos 0 % 0-6 % Final [facility] Hospital L ab (Internal) : [address] ? ? BLD ? Baso 0 % 0-1 % Final [facility] Hospital L ab (Internal) : [address] ? ? BLD ? Atyp 0 % ? Final [facility] L ab (Internal) : [address] ? ? BLD ? Plts, adequate adequate Final [place] Est. [facility] L ab (Internal) : [address] ? ? BLD ? RBC normal normal Final [place] Morphology [facility] L ab (Internal) : [address] t 01/27/2021 Neutrophil BLD ? Anc-manua 10.74 10*3/uL ? Final [place] Count, l [facility] Hospital Lab (Anc), Blood (Int ernal): [address] t 01/27/2021 Nlr-manual BLD High Nlr - 8.80 0.00-3.[address] [facility] L ab (Internal) : [address] 01/27/2021 Vancomycin, S Low Vanco, <6.0 ug/mL 15.0-20.0 Final [place] Trough, Trough ug/mL [facility] L ab (Internal) : [address] 01/26/2021 CBC W/ Auto BLD High Wbc 12.0 10*3/uL 5.0-10.0 Final [place] Diff 10*3/uL [facility] L ab (Internal) : [address] ? ? BLD Low Rbc 3.70 10*6/uL 4.60-6.00 Final N orth 10*6/uL [facility] L ab (Internal) : [address] ? ? BLD Low Hgb 11.5 g/dL 14.0-18.0 Final Nort h g/dL [facility] L ab (Internal) : [address] ? ? BLD Low Hct 35.3 % 41.0-51.0 Final [facility] L ab (Internal) : [address] ? ? BLD ? Mcv 95.4 fL 80.0-96.0 Final [facility] L ab (Internal) : [address] ? ? BLD ? Mch 31.1 pg 26.0-32.0 Final [place] pg [facility] L ab (Internal) : [address] ? ? BLD ? Mchc 32.6 g/dL 31.0-35.0 Final Nort h g/dL [facility] L ab (Internal) : [address] ? ? BLD ? Rdw 13.1 % 11.5-14.[address] [facility] Hospital L ab (Internal) : [address] ? ? BLD ? Plt 159 10*3/uL 130-450 Final Nort h 10*3/uL [facility] L ab (Internal) : [address] 01/26/2021 Differential BLD High Polys 94 % 40-75 % Final [place] , Manual, [facility] L ab (Internal) : [address] ? ? BLD ? Bands 0 % 0-5 % Final [facility] Hospital L ab (Internal) : [address] ? ? BLD Low Lymphs 3 % 20-50 % Final [facility] Hospital L ab (Internal) : [address] ? ? BLD ? Vigo 3 % 2-10 % Final [facility] Hospital L ab (Internal) : [address] ? ? BLD ? Eos 0 % 0-6 % Final [facility] L ab (Internal) : [address] ? ? BLD ? Baso 0 % 0-1 % Final [facility] Hospital L ab (Internal) : [address] ? ? BLD ? Atyp 0 % ? Final [facility] L ab (Internal) : [address] ? ? BLD ? Plts, adequate adequate Final [facility] L ab (Internal) : [address] ? ? BLD ? RBC normal normal Final [facility] L ab (Internal) : [address] 01/26/2021 Neutrophil BLD ? Anc-manua 11.30 10*3/uL ? Final [place] Count, [facility] Hospital Lab (Anc), Blood (Int ernal): [address] 01/26/2021 Nlr-manual BLD High Nlr - 31.33 0.00-3.[address] [facility] L ab (Internal) : [address] 01/25/2021 Culture, BLD ? Final microbiology ? Final [place] Blood 1 results [facility] L ab (Internal) : [address] t 01/25/2021 Lactic Acid, S High La 3.0 mmol/L 0.7-2.1 Fi nal [place] Blood mmol/L [facility] L ab (Internal) : [address] t 01/25/2021 CBC W/ Auto BLD High Wbc 16.3 10*3/uL 5.0-10.0 Final [place] Diff 10*3/uL [facility] (Internal) : [address] ? ? BLD Low Rbc 4.07 10*6/uL 4.60-6.00 Final N orth 10*6/uL [facility] L ab (Internal) : [address] ? ? BLD Low Hgb 12.8 g/dL 14.0-18.0 Final Nort h g/dL [facility] L ab (Internal) : [address] ? ? BLD Low Hct 38.1 % 41.0-51.0 Final [facility] L ab (Internal) : [address] ? ? BLD ? Mcv 93.6 fL 80.0-96.0 Final [facility] L ab (Internal) : [address] ? ? BLD ? Mch 31.4 pg 26.0-32.0 Final [place] pg [facility] L ab (Internal) : [address] ? ? BLD ? Mchc 33.6 g/dL 31.0-35.0 Final Nort h g/dL [facility] L ab (Internal) : [address] ? ? BLD ? Rdw 12.8 % 11.5-14.5 Final [facility] L ab (Internal) : [address] ? ? BLD ? Plt 216 10*3/uL 130-450 Final Nort h 10*3/uL [facility] L ab (Internal) : [address] 01/25/2021 CMP, Serum S ? g/r 104 mg/dL 74-106 Final North or Plasma mg/dL [facility] L ab (Internal) : [address] ? ? S ? Bun 14 mg/dL 9-20 Final [place] mg/dL [facility] L ab (Internal) : [...] Na 133 mmol/L 137-145 Final [place] mmol/L [facility] L ab (Internal) : [address] ? ? S ? K 3.8 mmol/L 3.5-5.1 Final [place] mmol/L [facility] (Internal) : [address] ? ? S Low Cl 92 mmol/L 98-107 Final [place] mmol/L [facility] L ab (Internal) : [...] Tbil 0.5 mg/dL 0.2-1.3 Final [place] mg/dL [facility] L ab (Internal) : [address] ? ? S ? Alp 56 U/L 50-136 Final [place] U/L [facility] L [facility] (Internal) : [address] ? ? S Low Alt 13 U/L 21-72 U/L Final [place] (Sgpt) [facility] L ab (Internal) : [address] ? ? S ? Ast 30 U/L 17-59 U/L Final [place] (Sgot) [facility] L ab (Internal) : [address] t 01/25/2021 Culture, BLD ? Final microbiology ? Final [place] Blood 2 results [facility] (Internal) : [address] t 01/25/2021 Differential BLD High Polys 83 % 40-75 % Final [facility], [facility] L ab (Internal) : [address] ? ? BLD ? Bands 5 % 0-5 % Final [facility] L ab (Internal) : [address] ? ? BLD Low Lymphs 4 % 20-50 % Final [facility] Hospital L ab (Internal) : [address] ? ? BLD ? Vigo 7 % 2-10 % Final [facility] ab (Internal) : [address] ? ? BLD ? Eos 0 % 0-6 % Final [facility] ab (Internal) : [address] ? ? BLD ? Baso 0 % 0-1 % Final [facility] ab (Internal) : [address] ? ? BLD ? Atyp 0 % ? Final [facility] ab (Internal) : [address] ? ? BLD High Young 1 % 0-0 % Final [facility] ab (Internal) : [address] ? ? BLD ? Plts, adequate adequate Final [facility] ab (Internal) : [address] ? ? BLD ? RBC normal normal Final [facility] L ab (Internal) : [address] 01/25/2021 Neutrophil BLD ? Anc-manua 14.34 10*3/uL ? Final [place] [facility] Blood (Int ernal): [address] t 01/25/2021 Nlr-manual BLD High Nlr - 22.00 0.00-3.20 Final [facility] L ab (Internal) : [address] t 01/25/2021 Cell Count, MISC ? Source, synovial ? Jovana l [place] Body Fluid Bf fluid Countr Hospital L ab (Internal) : [address] ? ? MISC ? Color, Bf yellow ? Final [facility] ab (Internal) : [address] ? ? MISC ? Clarity cloudy ? Final [facility] Hospital ab (Internal) : [address] ? ? MISC ? WBC, Bf 56.33 10*3/uL ? Final N orth (Auto) [facility] (Internal) : [address] ? ? MISC ? RBC, Bf 0.01 10*6/uL ? Final No rth (Auto) [facility] (Internal) : [address] ? ? MISC ? Polys, Bf 89 % ? Final North (Auto) [facility] (Internal) : [address] ? ? MISC ? Lymphs, 9 % ? Final North Bf(auto) [facility] (Internal) : [address] ? ? MISC ? Monocyte, 2 % ? Final North Bf (Auto) [facility] (Internal) : [address] ? ? MISC ? Eos, Bf 0 % ? Final [place] (Auto) [facility] (Internal) : [address] ? ? MISC ? Baso, Bf 0 % ? Final [place] (Auto) [facility] (Internal) : [address] t 01/25/2021 Culture, N/A ? Final microbiology ? Final [place] Aerobic, results [facility] (Internal) : [address] t 01/25/2021 CRP, High S High Rcrp 57.39 mg/dL 0.10-0.30 Fi [facility] Sensitivity, mg/dL Coun try Serum or Hospital Lab Plasma (Internal) : [address] 01/25/2021 Respiratory FLUID ? Final microbiology ? Fi nal [place] Virus Panel results Coun try Hospital ab (Internal) : [address] 01/25/2021 Culture, N/A ? Final microbiology ? Final [place] Anaerobic, results Count ry Isolate Hospital Lab (Internal) : [address] 01/25/2021 Bacteria N/A ? Final microbiology ? Final [place] Identificati results Cou ntry on, Hospital L ab Unspecified (Inte rnal): Specimen [address] t 01/25/2021 Bacteria N/A ? Final microbiology ? Final [place] Identificati results Cou ntry on, Hospital L ab Unspecified (Inte rnal): Specimen [address] 01/02/2020 CBC W/ Auto BLD ? Wbc 8.9 10*3/uL 5.0-10.0 F inal [place] Diff 10*3/uL [facility] (Internal) : [address] ? ? BLD Low Rbc 3.78 10*6/uL 4.60-6.00 Final N orth 10*6/uL [facility] L ab (Internal) : [address] ? ? BLD Low Hgb 12.4 g/dL 14.0-18.0 Final Nort h g/dL [facility] L ab (Internal) : [address] ? ? BLD Low Hct 35.5 % 41.0-51.0 Final [facility] L ab (Internal) : [address] ? ? BLD ? Mcv 93.9 fL 80.0-96.0 Final [facility] L ab (Internal) : [address] ? ? BLD High Mch 32.8 pg 26.0-32.0 Final [facility] Hospital L ab (Internal) : [address] ? ? BLD ? Mchc 34.9 g/dL 31.0-35.0 Final Nort h g/dL [facility] L [facility] (Internal) : [address] ? ? BLD ? Rdw 11.5 % 11.5-14.5 Final [facility] L ab (Internal) : [address] ? ? BLD ? Plt 261 10*3/uL 130-450 Final Nort h 10*3/uL [facility] (Internal) : [address] ? ? BLD ? Anc 5.65 10*3/uL ? Final Nort h [facility] L ab (Internal) : [address] ? ? BLD ? Nlr 2.36 0.00-3.20 Final [facility] L ab (Internal) : [address] ? ? BLD ? Neutro 63.9 % 40.0-75.0 Final [facility] (Internal) : [address] ? ? BLD ? Lymph 27.0 % 20.0-50.[address] [facility] Hospital L ab (Internal) : [address] ? ? BLD ? Vigo 8.0 % 2.0-10.[address] [facility] Hospital L ab (Internal) : [address] ? ? BLD Low Eos 0.5 % 1.0-6.0 % Final [facility] Hospital L ab (Internal) : [address] ? ? BLD ? Baso 0.3 % 0.0-1.0 % Final [facility] L ab (Internal) : [address] ? ? BLD ? Ig 0.3 % 0.0-0.9 % Final [facility] L ab (Internal) : [address] Dr t 01/02/2020 Lactic Acid, S ? La 1.6 mmol/L 0.7-2.1 Fi nal [place] Blood mmol/L [facility] L ab (Internal) : [address] t 01/02/2020 Ketones, S ? Ketone 0.1 mmol/L 0.0-0.5 Final [place] Quantitative (Bhb mmol/L Coun try , Blood Quant) Hospital Lab (Internal) : [address] t 01/02/2020 CMP, Serum S ? g/r 104 mg/dL 74-106 Final [place] or Plasma mg/dL [facility] L ab (Internal) : [address] t ? ? S Low Bun 6 mg/dL 9-20 Final [place] mg/dL [facility] (Internal) : [address] t ? ? S Low Crea 0.50 mg/dL 0.66-1.25 Final [place] th mg/dL [facility] L ab (Internal) : [address] t ? ? S ? Ca 8.7 mg/dL 8.4-10.2 Final [place] mg/dL [facility] L ab (Internal) : [address] t ? ? S Low Na 133 mmol/L 137-145 Final [place] mmol/L [facility] L [facility] (Internal) : [address] t ? ? S ? K 3.6 mmol/L 3.5-5.1 Final [place] mmol/L [facility] L [facility] (Internal) : [address] t ? ? S Low Cl 94 mmol/L 98-107 Final [place] mmol/L [facility] (Internal) : [...] Alb 3.6 g/dL 3.5-5.0 Final [place] g/dL [facility] L [facility] (Internal) : [address] t ? ? S ? Tbil 0.7 mg/dL 0.2-1.3 Final [place] mg/dL [facility] L [facility] (Internal) : [address] t ? ? S ? Alp 53 U/L 50-136 Final [place] U/L [facility] L [facility] (Internal) : [address] t ? ? S Low Alt 17 U/L 21-72 U/L Final [place] (Sgpt) [facility] L [facility] (Internal) : [address] t ? ? S ? Ast 23 U/L 17-59 U/L Final [place] (Sgot) [facility] L ab (Internal) : [address] 01/02/2020 Magnesium, S ? mg 2.1 mg/dL 1.6-2.3 Final [place] QN, Serum or mg/dL [facility] L [facility] (Internal) : [address] 01/02/2020 HIV (1+2) Ab S ? HIV 1/2 negative negative F inal [place] Screen, Antigen [facility] Antibody (Interna l): [address] 01/01/2020 CBC W/ Auto BLD ? Wbc 6.9 10*3/uL 5.0-10.0 F inal [place] Diff 10*3/uL [facility] (Internal) : [address] t ? ? BLD Low Rbc 3.62 10*6/uL 4.60-6.00 Final N orth 10*6/uL [facility] L ab (Internal) : [address] ? ? BLD Low Hgb 11.9 g/dL 14.0-18.0 Final Nort h g/dL [facility] L ab (Internal) : [address] ? ? BLD Low Hct 34.4 % 41.0-51.[address] [facility] L ab (Internal) : [address] ? ? BLD ? Mcv 95.0 fL 80.0-96.0 Final [facility] L ab (Internal) : [address] ? ? BLD High Mch 32.9 pg 26.0-32.0 Final [facility] L ab (Internal) : [address] ? ? BLD ? Mchc 34.6 g/dL 31.0-35.0 Final Nort h g/dL [facility] L [facility] (Internal) : [address] ? ? BLD ? Rdw 11.7 % 11.5-14.5 Final [facility] L ab (Internal) : [address] ? ? BLD ? Plt 239 10*3/uL 130-450 Final Nort h 10*3/uL [facility] L [facility] (Internal) : [address] ? ? BLD ? Anc 4.07 10*3/uL ? Final Nort h [facility] L ab (Internal) : [address] ? ? BLD ? Nlr 2.01 0.00-3.20 Final [facility] L ab (Internal) : [address] ? ? BLD ? Neutro 58.8 % 40.0-75.0 Final [facility] L ab (Internal) : [address] ? ? BLD ? Lymph 29.2 % 20.0-50.0 Final [facility] L ab (Internal) : [address] ? ? BLD High [place] 10.4 % 2.0-10.0 Final [facility] % [facility] (Internal) : [address] t ? ? BLD Low Eos 0.7 % 1.0-6.0 % Final [facility] L ab (Internal) : [address] t ? ? BLD ? Baso 0.6 % 0.0-1.0 % Final [facility] L ab (Internal) : [address] t ? ? BLD ? Ig 0.3 % 0.0-0.9 % Final [facility] L ab (Internal) : [address] t 01/01/2020 CMP, Serum S High g/r 113 mg/dL 74-106 Final [place] or Plasma mg/dL [facility] (Internal) : [address] t ? ? S ? Bun 15 mg/dL 9-20 Final [place] mg/dL [facility] L [facility] (Internal) : [address] t ? ? S Low Crea 0.60 mg/dL 0.66-1.25 Final Nor th mg/dL [facility] L [facility] (Internal) : [address] t ? ? S Low Ca 8.1 mg/dL 8.4-10.2 Final [place] mg/dL [facility] (Internal) : [address] t ? ? S Low Na 136 mmol/L 137-145 Final [place] mmol/L [facility] (Internal) : [address] t ? ? S Low K 3.1 mmol/L 3.5-5.1 Final [place] mmol/L [facility] (Internal) : [address] t ? ? S ? Cl 103 mmol/L 98-107 Final [place] mmol/L [facility] (Internal) : [...] S ? Tbil 0.7 mg/dL 0.2-1.3 Final [place] mg/dL [facility] L [facility] (Internal) : [address] t ? ? S Low Alp 34 U/L 50-136 Final [place] U/L [facility] L [facility] (Internal) : [address] t ? ? S Low Alt 14 U/L 21-72 U/L Final [place] (Sgpt) [facility] L ab (Internal) : [address] t ? ? S ? Ast 19 U/L 17-59 U/L Final [place] (Sgot) [facility] L ab (Internal) : [address] t 01/01/2020 Lactic Acid, S High La 3.6 mmol/L 0.7-2.1 Fi nal [place] Blood mmol/L [facility] L ab (Internal) : [address] 01/01/2020 CBC W/ Auto BLD ? Wbc 8.8 10*3/uL 5.0-10.0 F inal [place] Diff 10*3/uL [facility] L ab (Internal) : [address] t ? ? BLD Low Rbc 3.85 10*6/uL 4.60-6.00 Final N orth 10*6/uL [facility] L [facility] (Internal) : [address] t ? ? BLD Low Hgb 12.7 g/dL 14.0-18.0 Final Nort h g/dL [facility] L [facility] (Internal) : [address] t ? ? BLD Low Hct 36.5 % 41.0-51.0 Final [place] % [facility] L ab (Internal) : [address] t ? ? BLD ? Mcv 94.8 fL 80.0-96.0 Final [place] fL [facility] L [facility] (Internal) : [address] t ? ? BLD High Mch 33.0 pg 26.0-32.0 Final [place] pg [facility] L ab (Internal) : [address] t ? ? BLD ? Mchc 34.8 g/dL 31.0-35.0 Final Nort h g/dL [facility] L [facility] (Internal) : [address] t ? ? BLD ? Rdw 11.8 % 11.5-14.5 Final [facility] L ab (Internal) : [address] ? ? BLD ? Plt 263 10*3/uL 130-450 Final Nort h 10*3/uL [facility] L [facility] (Internal) : [address] t ? ? BLD ? Anc 5.38 10*3/uL ? Final Nort h [facility] L ab (Internal) : [address] ? ? BLD ? Nlr 2.09 0.00-3.20 Final [facility] L ab (Internal) : [address] ? ? BLD ? Neutro 61.3 % 40.0-75.0 Final [facility] L ab (Internal) : [address] ? ? BLD ? Lymph 29.2 % 20.0-50.0 Final [facility] L ab (Internal) : [address] ? ? BLD ? [place] 8.4 % 2.0-10.0 Final [facility] L ab (Internal) : [address] ? ? BLD Low Eos 0.5 % 1.0-6.0 % Final [facility] L ab (Internal) : [address] t ? ? BLD ? Baso 0.3 % 0.0-1.0 % Final [facility] L ab (Internal) : [address] t ? ? BLD ? Ig 0.3 % 0.0-0.9 % Final [facility] L ab (Internal) : [address] t 01/01/2020 CMP, Serum S ? g/r 97 mg/dL 74-106 Final [place] or Plasma mg/dL [facility] L ab (Internal) : [address] t ? ? S ? Bun 12 mg/dL 9-20 Final [place] mg/dL [facility] L ab (Internal) : [address] t ? ? S Low Crea 0.60 mg/dL 0.66-1.25 Final [facility] th mg/dL [facility] L ab (Internal) : [address], [place] ? ? S ? Ca 8.4 mg/dL 8.4-10.2 Final [place] mg/dL [facility] (Internal) : [address] t ? ? S Low Na 133 mmol/L 137-145 Final [place] mmol/L [facility] L [facility] (Internal) : [...] Tbil 0.5 mg/dL 0.2-1.3 Final [place] mg/dL [facility] L ab (Internal) : [address] t ? ? S Low Alp 48 U/L 50-136 Final [place] U/L [facility] L [facility] (Internal) : [address] t ? ? S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
== END 2021-11-20 09:30 ==
PROVIDERS: PCP Family Medicine; Visit Provider Nurse Practitioner Family
DX: R60.0 Localized edema (principal); R79.1 Abnormal coagulation profile
CPT/HCPCS: 93971

== ENCOUNTER 2021-12-25 11:41 | Emergency (ER) | payer MEDICAID, SELFPAY ==
[2021-12-25 11:45] VITALS: PULSE 85; RESP 16; TEMP 37; O2SAT 97
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
[2021-12-25 12:14] LABS: Abs Immature Grans 0.02 10^3/uL (0.0-0.06); Absolute Basophil Count 0.03 10^3/uL (0.0-0.2); Absolute Eosinophil Count 0.03 10^3/uL (0.0-0.7); Absolute Lymphocyte Count 1.49 10^3/uL (1.2-3.4); Absolute Neutrophil Count 6.76 10^3/uL (1.2-6.7); Basophils % 0.3; Eosinophils % 0.3; HCT 38.6 % (40.0-50.0); HGB 13.1 g/dL (13.5-17.5); Immature Grans % 0.2; Lymphocytes % 16.5; MCH 32.4 pg (27.0-33.0); MCHC 33.9 % (32.0-36.0); MCV 96 fL (80-95); MPV 9.4 fL (8.0-11.0); Monocytes % 7.8; Neutrophils % 74.9; Platelet Count 263 10^3/uL (130-400); RBC 4.04 10^6/uL (4.36-5.78); RDW 11.7 % (11.8-14.1); RDW-SD 41.4 fL; WBC 9.03 10^3/uL (4.4-10.8)
[2021-12-25 12:39] LABS: ALT 22 U/L (16-63); AST 17 U/L (15-37); Alkaline Phosphatase 70 U/L (46-116); Anion Gap 9.5 mmol/L (3-11); BUN 16 mg/dL (7-18); Bilirubin, Total 0.3 mg/dL (0.2-1.0); CO2 26.5 mmol/L (21.0-32.0); CREATININE 0.8 mg/dL (0.70-1.30); Calcium 8.6 mg/dL (8.5-10.1); Chloride 101 mmol/L (98-107); Glucose 154 mg/dL (74-106); Potassium 3.8 mmol/L (3.5-5.1); Sodium 137 mmol/L (136-145); Total Protein 7.2 g/dL (6.4-8.2)
[2021-12-25] MEDS: Ondansetron 4 MG/2 ML VIAL IVP (12:43)
[2021-12-25] MEDS: ACETAMINOPHEN 1,000 MG/100 ML BTL 400 MG IVPB (12:44)
[2021-12-25 12:48] VITALS: BP 146/71; PULSE 77; RESP 16; TEMP 37.1; O2SAT 98
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
[2021-12-25 14:19] VITALS: BP 156/82; PULSE 76; RESP 16; TEMP 36.7; O2SAT 97
[2021-12-25 14:26] VITALS: BP 156/82; PULSE 76; RESP 16; TEMP 36.7; O2SAT 97
== END 2021-12-25 14:25 | disposition home or self-care (01) ==
LOC: ER 23:39
PROVIDERS: Emergency Provider Nurse Practitioner Family; PCP Family Medicine
DX: S06.0X0A Concussion without loss of consciousness, initial encounter (principal); Y04.2XXA Assault by strike against or bumped into by another person, initial encounter
CPT/HCPCS: 80053; 96374; 96375; 99284; 70450; 70486; 72125; 85025; J0131; J2405

== ENCOUNTER 2022-02-21 20:51 | Emergency (ER) | payer MEDICAID, SELFPAY ==
[2022-02-21 21:01] VITALS: BP 126/90; PULSE 104; RESP 18; TEMP 37.2; O2SAT 99
--- NOTE | 2022-02-21 21:22 | ED.GENADUL_ITS ---
Discharge Plan Disposition Patient Disposition: HOME Condition: Stable Discharge Details Clinical Impression: Fatigue Primary Care Provider: Ema Garcias V ED Provider: Ilya Minor Home Meds and New Rx's Prescriptions: New ondansetron 4 mg tablet,disintegrating 4 mg PO Q8H PRN (Reason: nausea and vomiting) Qty: 30 0RF ondansetron 4 mg tablet,disintegrating 4 mg PO Q8H PRN (Reason: nausea and vomiting) Qty: 30 0RF Continued buprenorphine-naloxone [Suboxone] 8-2 mg film 1 film sublingual DAILY venlafaxine [Effexor XR] 150 MG capsule,extended release 24hr 150 mg PO DAILY nitroglycerin [Nitrostat] 0.4 MG tablet, sublingual 0.4 mg Buccal ONCE Label Comments: pt states he took 0.4mg at 1215, 1225, 1235 verapamil 120 MG capsule,ext rel. pellets 24 hr 240 mg PO DAILY cholestyramine (with sugar) [Questran] 4 GM packet 4 g PO BID clonazepam 2 MG tablet 2 mg PO BID Label Comments: pt took more than prescribed a few times and ran out of meds 3 days ago. cholecalciferol (vitamin D3) [Vitamin D3] 1,000 UNIT capsule 1,000 unit PO DAILY omega-3 fatty acids-fish oil 1 EACH capsule 1 ea PO cbqhilzdwzkw-ignz-ziozj acid [Centrum Complete] 1 EACH tablet 1 tab-cap PO DAILY jgwimmwrvla-X2-Amzyspmfa serr [Osteo Bi-Flex (5-Loxin)] 1 EACH tablet 1 ea PO DAILY clonazepam [Klonopin] 2 MG tablet 2 mg PO BID Qty: 4 0RF amlodipine 5 mg Tablet 5 mg PO DAILY amitriptyline 10 mg Tablet 10 mg PO DAILY buprenorphine-naloxone 8-2 mg Tablet, Sublingual 1 tab SUBLINGUAL DAILY buprenorphine-naloxone [Suboxone] 2-0.5 mg Film 1 film BUCCAL DAILY Rx Instructions: place 1 strip/tab under (each) side of tongue ondansetron 4 mg tablet,disintegrating 4 mg PO Q8H PRN (Reason: nausea and vomiting) Qty: 10 0RF Discharge Instructions Additional Instructions: follow up with your primary care provider within 1 week and also discuss seeing a staking press operator for your toe if you feel more ill, have fevers or severe pain return to the emergency department Medical Decision Making 56 yo male with hx of ADD, anxiety, prior substance use was on suboxone but stopped this himself 02/11, comes in with several complaints. He states for the last few days he hasn't been feeling well and has felt fatigued, nausea and yesterday had vomit. He states he has no fevers, chills, chest pain, sob, abdomen pain. He also notes a lesion on his left 2nd toe that's been there for a year and has been growing. HE denies pain of the foot. He did sustain a cut on the left big toe years ago requiring amputation for osteo. He has a growth on his left toenail that is hard and crusting and seems chronic and not acute, there is no redness of the toe, warmth or pain so do not feel this is an acute cellulitis or osteo and do not feel imaging indicated, will need podiatry follow up.He has no abdominal tenderness, clear lungs, and appears well systemically. Unclear etiology for the fatigue, will check cbc, tsh, cmp and reassess. pt walking around the waiting room in no distress, labs unremarkable and he continues to appear well. He is stable for d/c, suspect this could be from coming off suboxone. He is requesting something for nausea if it recurs which I feel is reasonable. Advised to f/u with his pcp and return precautions given. Advised to f/u with his pcp and discuss podiatry referral as well Differential Diagnosis Differential Diagnosis: foot fungus, chronic toenail lesion, anemia, electrolyte abnormality Lab Data Lab results reviewed: Yes I reviewed the patient's lab results. HPI General Mode of arrival: EMS . Date/Time Provider Initiated Documentation: 02/21/22 21:10 . Limitations to Documentation: no limitations . Information obtained by: patient . History of Present Illness 56 year old M presents to the emergency department with the chief complaint of fatigue, described as moderate, Patient started experiencing this day(s) (5) and it has been constant. No relieving factors improve symptom(s), No exacerbating factors reported . Patient notes nausea/vomiting (yesterday); denies chest pain and shortness of breath. Patient did receive the following treatments prior to arrival, none Related Data Home Medications Medication Instructions Recorded Confirmed cholecalciferol (vitamin D3) 25 1,000 unit PO DAILY 10/20/16 06/03/17 mcg (1,000 unit) capsule (Vitamin D3) cholestyramine (with sugar) 4 gram 4 g PO BID 10/20/16 06/03/17 powder for susp in a packet (Questran) clonazepam 2 mg tablet 2 mg PO BID 10/20/16 06/03/17 glucosamine QWa-[id number]-[id number] 1 ea PO DAILY 10/20/16 06/03/17 camelia 1,500 mg-400 unit-100 mg tablet (Osteo Bi-Flex (5-Loxin)) multivitamin-ferrous 1 tab-cap PO DAILY 10/20/16 06/03/17 fumarate-folic acid 18 mg-400 mcg tablet (Centrum Complete) nitroglycerin 0.4 mg sublingual 0.4 mg buccal ONCE 10/20/16 06/03/17 tablet (Nitrostat) omega-3 fatty acids-fish oil 300 1 ea PO 10/20/16 mg-1,000 mg capsule venlafaxine 150 mg 150 mg PO DAILY 10/20/16 06/03/17 capsule,extended release 24 hr (Effexor XR) verapamil 120 mg 24 hr 240 mg PO DAILY 10/20/16 06/03/17 capsule,extended release clonazepam 2 mg tablet (Klonopin) 2 mg PO BID #4 tabs 06/03/17 buprenorphine 8 mg-naloxone 2 mg 1 film sublingual DAILY 08/13/20 12/25/21 sublingual film (Suboxone) amitriptyline 10 mg tablet 10 mg PO DAILY 12/25/21 12/25/21 amlodipine 5 mg tablet 5 mg PO DAILY 12/25/21 12/25/21 buprenorphine 2 mg-naloxone 0.5 mg 1 film buccal DAILY 12/25/21 sublingual film (Suboxone) buprenorphine 8 mg-naloxone 2 mg 1 tab sublingual DAILY 12/25/21 sublingual tablet ondansetron 4 mg disintegrating 4 mg PO Q8H PRN nausea and 12/25/21 tablet vomiting #10 tabs ondansetron 4 mg disintegrating 4 mg PO Q8H PRN nausea and 02/21/22 tablet vomiting #30 tabs ondansetron 4 mg disintegrating 4 mg PO Q8H PRN nausea and 02/21/22 tablet vomiting #30 tabs Previous Rx's Medication Instructions Recorded clonazepam 2 mg tablet (Klonopin) 2 mg PO BID #4 tabs 06/03/17 ondansetron 4 mg disintegrating 4 mg PO Q8H PRN nausea and 12/25/21 tablet vomiting #10 tabs ondansetron 4 mg disintegrating 4 mg PO Q8H PRN nausea and 02/21/22 tablet vomiting #30 tabs ondansetron 4 mg disintegrating 4 mg PO Q8H PRN nausea and 02/21/22 tablet vomiting #30 tabs Allergies Allergy/AdvReac Type Severity Reaction Status Date / Time NSAIDS (Non-Steroidal AdvReac Verified 12/25/21 11:51 Anti-Inflamma General Stated Complaint: GenMedical ROHITH: 3 Review of Systems All systems reviewed & are unremarkable except as noted in HPI and below Constitutional Constitutional: Denies chills and Denies fever(s) Eyes Eyes: Denies loss of vision ENT Ears, Nose, Mouth, and Throat: Denies change in voice Cardiovascular Cardiovascular: Denies chest pain and Denies dyspnea Respiratory Respiratory: Denies cough and Denies dyspnea Gastrointestinal Gastrointestinal: Denies abdominal pain Musculoskeletal Musculoskeletal: Denies joint swelling Neurologic Neurologic: Denies loss of vision PFSH All Active Problems (Updated 02/21/22 @ 22:02 by Ilya Minor MD) Fatigue (Acute) Foot osteomyelitis, left (Acute) Medical History ADD (attention deficit disorder) Anxiety Chest discomfort Chronic low back pain Chronic pain syndrome Dental infection Depression H/O total hip arthroplasty 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 History of total left knee replacement HTN (hypertension) Hyperlipidemia Knee pain Lesion of penis Lumbar facet joint pain Medication monitoring encounter Rib pain on left side Unintentional weight loss Urinary disorder Social History Smoking/Tobacco Use Status: Current every day Tobacco Type: cigarettes Smoking risk assessment performed?: Yes Alcohol Intake: current Alcohol Intake frequency: a few times a month Alcohol type: beer Substance use type: does not use and marijuana Do you feel safe at home: No (lives at hotel) Do you feel safe in your relationship?: Yes Exam Const General: no acute distress Orientation: alert HENMT Head: normal to inspection Ears: external ears normal General nose exam: external nose normal Mouth: moist mucous membranes Eyes General: appearance normal, both eyes and all related structures Neck Neck: normal visual inspection Resp Effort & Inspection: normal respiratory effort and able to speak in complete sentences Cardio Rate: regular rate GI Palpation: soft and nontender Skin General skin exam: no rashes or lesions noted Neuro General: patient alert and patient oriented x3 Extrem General: full ROM and capillary refill normal Psych Mental Status: mental status grossly normal Course Vital Signs Vital signs: Vital Signs Temperature 37.2 C 02/21/22 21:01 Pulse 104 H 02/21/22 21:01 Respiratory Rate 18 02/21/22 21:01 Blood Pressure 126/90 02/21/22 21:01 Pulse Oximetry 99 02/21/22 21:01 Temperature 37.2 C 02/21/22 21:01 Temperature Source Temporal Artery Scan 02/21/22 21:01 Pulse 104 H 02/21/22 21:01 Respiratory Rate 18 02/21/22 21:01 Respiratory Effort 02/21/22 21:09 Respiratory Depth Normal 02/21/22 21:09 Respiratory Pattern Normal 02/21/22 21:09 Blood Pressure 126/90 02/21/22 21:01 Pulse Oximetry 99 02/21/22 21:01 Oxygen Delivery Method Room Air 02/21/22 21:01 Oxygen Flow Rate 0 02/21/22 21:01 Pain Level 3 02/21/22 21:01
[2022-02-21 21:34] LABS: Abs Immature Grans 0.02 10^3/uL (0.0-0.06); Absolute Basophil Count 0.03 10^3/uL (0.0-0.2); Absolute Eosinophil Count 0.07 10^3/uL (0.0-0.7); Absolute Lymphocyte Count 2.91 10^3/uL (1.2-3.4); Absolute Monocyte Count 0.83 10^3/uL (0.1-0.8); Absolute Neutrophil Count 6.58 10^3/uL (1.2-6.7); Basophils % 0.3; Eosinophils % 0.7; HCT 49.3 % (40.0-50.0); HGB 16.8 g/dL (13.5-17.5); Immature Grans % 0.2; Lymphocytes % 27.9; MCH 32.6 pg (27.0-33.0); MCHC 34.1 % (32.0-36.0); MCV 96 fL (80-95); MPV 8.9 fL (8.0-11.0); Neutrophils % 62.9; Platelet Count 290 10^3/uL (130-400); RBC 5.15 10^6/uL (4.36-5.78); RDW 12.4 % (11.8-14.1); RDW-SD 44.5 fL; WBC 10.44 10^3/uL (4.4-10.8)
[2022-02-21 21:50] LABS: ALT 20 U/L (16-63); AST 11 U/L (15-37); Albumin 4.6 g/dL (3.4-5.0); Alkaline Phosphatase 61 U/L (46-116); Anion Gap 10.7 mmol/L (3-11); BUN 18 mg/dL (7-18); Bilirubin, Total 0.7 mg/dL (0.2-1.0); CO2 26.3 mmol/L (21.0-32.0); CREATININE 0.9 mg/dL (0.70-1.30); Calcium 9.6 mg/dL (8.5-10.1); Chloride 99 mmol/L (98-107); Creatine Kinase 53 U/L (39-308); Glucose 105 mg/dL (74-106); Magnesium 2.3 mg/dL (1.8-2.4); Potassium 4.1 mmol/L (3.5-5.1); Sodium 136 mmol/L (136-145); Total Protein 7.9 g/dL (6.4-8.2)
== END 2022-02-21 22:12 | disposition home or self-care (01) ==
PROVIDERS: Emergency Provider Emergency Medicine; PCP Family Medicine
DX: R53.83 Other fatigue (principal); R11.2 Nausea with vomiting, unspecified; I10 Essential (primary) hypertension; F17.210 Nicotine dependence, cigarettes, uncomplicated
CPT/HCPCS: 80053; 82550; 99283; 83735; 85025; 99284

== ENCOUNTER 2023-07-06 00:20 | Emergency (ER) | payer MEDICAID, SELFPAY ==
[2023-07-06] VITALS (21 sets, daily range): BP systolic 132–170; BP diastolic 82–90; PULSE 69–90; RESP 14–25; TEMP 36.2; O2SAT 95–99
--- NOTE | 2023-07-06 | DI.CT_ITS ---
Exam(s) CT HEAD CERVICAL SPINE WO EXAM: CT HEAD CERVICAL SPINE WO CLINICAL HISTORY: fall. TECHNIQUE: Imaging Protocol: Axial computed tomography images with coronal and sagittal reformatted images were created and reviewed COMPARISON: CT CT HEAD CERV SPINE FACIAL WO from 12/25/2021 FINDINGS: The examination is limited due to patient motion artifact. CT Head: Ventricles and Extra axial spaces: Normal in size and morphology for the patient's age. Hemorrhage: None. Cerebral parenchyma: Normal. Midline shift: None. Brainstem/Cerebellum: Normal. Calvarium: Normal. Visualized Paranasal sinuses/Mastoids: Clear. Soft Tissues: Unremarkable. CT Cervical Spine: Only the cervical spine to C6 was included. Bones: No acute fracture or subluxation. Degenerative changes are present. Soft Tissues: Unremarkable. Lung Apices: The lung apices are not included on this examination. IMPRESSION: 1. No acute intracranial process. 2. No acute fracture or subluxation in the cervical spine. RADIATION DOSE DELIVERED: Total DLP DATA REPOSITORY: All CT scans at this facility are submitted to the National Radiology Data Registry (NRDR) Dose Index Registry (DIR) with the [employer] (A[employer]). RADIATION OPTIMIZATION: All CT scans at this facility use at least one of these dose optimization te chniques: automated exposure control; mA and/or kV adjustment per patient size (includes targeted exa ms where dose is matched to clinical indication); or iterative reconstruction.
--- NOTE | 2023-07-06 00:15 | DI.CT_ITS ---
Exam(s) CT CHEST/ABD/PEL W CT THORACIC LUMBAR SPINE REC EXAM: CT CHEST/ABD/PEL W and CT thoracic and lumbar spine recons CLINICAL HISTORY: trauma TECHNIQUE: Imaging Protocol: Axial computed tomography images with coronal and sagittal reformatted images were created and reviewed CONTRAST MATERIAL: Intravenous: Omnipaque 350 contrast volume:100 mL Oral: No COMPARISON: There are no priors for comparison. FINDINGS: The examination is limited due to patient motion artifact. CHEST: Tracheobronchial tree: Patent where visualized. Pulmonary parenchyma: No consolidation or dominant measurable mass. No architectural distortion. Visualized thyroid gland: Unremarkable. Mediastinum and Elsa: No dominant adenopathy or fluid collection. The esophagus is unremarkable. Pleura: No effusion or pneumothorax. Heart: The heart is not dilated. Coronary artery calcifications are present. No pericardial effusion . Pulmonary arteries: Segmental and subsegmental pulmonary artery evaluation is impossible due to patie nt motion artifact. No large central pulmonary embolus is seen. Aorta: Thoracic aorta non-dilated. Atherosclerosis. No evidence of dissection. Lymph nodes: Within normal limits. Soft tissues: Gynecomastia. Bones:Within normal limits for the patient's age. Thoracic spine recons: There is a chronic appearing compression fracture of T8. There is also mild d epression seen in the superior endplate of T4 of indeterminate age. C7 appears grossly unremarkable. The cervical thoracic junction is intact. ABDOMEN: Liver: Normal density. No measurable mass. Portal, Superior Mesenteric, and Splenic Veins: Unremarkable. Gallbladder and Biliary Tract: No radiodense calculus or dilation. Pancreas: Normal density, no abnormal calcifications or inflammatory process. Spleen: Normal. Adrenals: No masses seen. Kidneys: Normal size, contour and axis. No radiodense stones or obstructive uropathy. No masses seen. Abdominal Aorta: Abdominal portion non-dilated. Atherosclerosis. Bowel: No obstruction or bowel wall thickening. No evidence of appendicitis. Peritoneal Cavity: No ascites, collection or mesenteric inflammatory response. No free air. Lymph Nodes: Within normal limits. Bones: Within normal limits for the patient's age. The patient has a right total hip replacement. Soft Tissues: Unremarkable. PELVIS: Bladder: Symmetric distention, no gross wall thickening. Urinary bladder is slightly obscured seconda ry to artifact from the patient's right hip prosthesis. Reproductive Organs: Unremarkable as visualized. There is limited visualization secondary to artifact from the patient's right hip prosthesis. Lymph Nodes: Within normal limits. Bones: Within normal limits. Lumbar spine recons: Degenerative changes are present throughout the lumbar spine. Chronic depressio ns in the superior endplates of L2 and L4 are noted. No acute fracture or subluxation. IMPRESSION: 1. No acute pulmonary process. 2. No acute abdominal or pelvic organ injury. 3. Chronic appearing depression fracture seen in the thoracic and lumbar spine. If there is continue d concern, an MRI may be obtained for further evaluation. RADIATION DOSE DELIVERED: Total DLP DATA REPOSITORY: All CT scans at this facility are submitted to the National Radiology Data Registry (NRDR) Dose Index Registry (DIR) with the [employer] (ACR). RADIATION OPTIMIZATION: All CT scans at this facility use at least one of these dose optimization te chniques: automated exposure control; mA and/or kV adjustment per patient size (includes targeted exa ms where dose is matched to clinical indication); or iterative reconstruction.
--- NOTE | 2023-07-06 00:15 | RT.EKG_ITS ---
APPROVED REPORT Exam: Resting ECG Reason for Exam: trauma Patient Location: E HR:75 bpm ECG Measurements Heart Rate 75 AXIS NE 184 P 63 QRSd 97 QRS 74 QT 381 T 53 QTc 427 Conclusion Sinus rhythm rate 75 normal axis no acute ischemic change
[2023-07-06] MEDS: Omnipaque 350 MG/ML 100 ML BTL IJ (00:34)
[2023-07-06] MEDS: Normal Saline Flush 10 ML SYR IVP (00:35)
[2023-07-06] MEDS: Normal Saline - Diluent 50 ML VIAL IJ (00:35)
[2023-07-06 00:37] LABS: Abs Immature Grans 0.07 10^3/uL (0.0-0.06); Absolute Basophil Count 0.05 10^3/uL (0.0-0.2); Absolute Lymphocyte Count 2.36 10^3/uL (1.2-3.4); Absolute Neutrophil Count 4.02 10^3/uL (1.2-6.7); Basophils % 0.7; Eosinophils % 1.4; HCT 47.9 % (40.0-50.0); HGB 16.6 g/dL (13.5-17.5); Lymphocytes % 33.2; MCHC 34.7 % (32.0-36.0); MCV 98 fL (80-95); Neutrophils % 56.7; Platelet Count 288 10^3/uL (130-400); RBC 4.88 10^6/uL (4.36-5.78); RDW 11.9 % (11.8-14.1); RDW-SD 43.8 fL
--- NOTE | 2023-07-06 00:43 | ED.GENADUL_ITS ---
Discharge Plan Disposition Patient Disposition: Home Condition: Improving Discharge Details Clinical Impression: Contusion, Alcohol intoxication in active alcoholic with complication, Fall Primary Care Provider: Ema Garcias V ED Provider: rBunilda Ahuja Home Meds and New Rx's Prescriptions: No Action buprenorphine-naloxone [Suboxone] 8-2 mg film 1 film sublingual DAILY venlafaxine [Effexor XR] 150 MG capsule,extended release 24hr 150 mg PO DAILY nitroglycerin [Nitrostat] 0.4 MG tablet, sublingual 0.4 mg Buccal ONCE Patient Comments: pt states he took 0.4mg at 1215, 1225, 1235 verapamil 120 MG capsule,ext rel. pellets 24 hr 240 mg PO DAILY cholestyramine (with sugar) [Questran] 4 GM packet 4 g PO BID clonazepam 2 MG tablet 2 mg PO BID Patient Comments: pt took more than prescribed a few times and ran out of meds 3 days ago. cholecalciferol (vitamin D3) [Vitamin D3] 1,000 UNIT capsule 1,000 unit PO DAILY omega-3 fatty acids-fish oil 1 EACH capsule 1 ea PO [id number]-[id number] acid [Centrum Complete] 1 EACH tablet 1 tab-cap PO DAILY [id number] serr [Osteo Bi-Flex (5-Loxin)] 1 EACH tablet 1 ea PO DAILY clonazepam [Klonopin] 2 MG tablet 2 mg PO BID Qty: 4 0RF amlodipine 5 mg Tablet 5 mg PO DAILY amitriptyline 10 mg Tablet 10 mg PO DAILY buprenorphine-naloxone 8-2 mg Tablet, Sublingual 1 tab SUBLINGUAL DAILY buprenorphine-naloxone [Suboxone] 2-0.5 mg Film 1 film BUCCAL DAILY Rx Instructions: place 1 strip/tab under (each) side of tongue ondansetron 4 mg tablet,disintegrating 4 mg PO Q8H PRN (Reason: nausea and vomiting) Qty: 10 0RF ondansetron 4 mg tablet,disintegrating 4 mg PO Q8H PRN (Reason: nausea and vomiting) Qty: 30 0RF ondansetron 4 mg tablet,disintegrating 4 mg PO Q8H PRN (Reason: nausea and vomiting) Qty: 30 0RF Discharge Instructions Additional Instructions: Please avoid drinking to excess. Follow-up with your primary care physician for any additional needs. Medical Decision Making Emergent evaluation of traumatic injury. Initial differential includes acute alcohol intoxication, closed head injury, fracture, intra-abdominal process. Patient has signs of clinical intoxication and endorses alcohol use. Otherwise he has multiple abrasions associated with the fall and there are no lacerations or obvious deformities. Will get lab work and CT imaging will assess for clinical sobriety. [address] Head and cervical spine CT imaging are unremarkable for traumatic injury. Chest and abdominal imaging unremarkable for acute traumatic injury. Spine recons negative for fracture. Lab work reviewed, CBC without leukocytosis or anemia. No thrombocytopenia no obvious coagulopathy, electrolytes stable. Alcohol level significantly elevated at 355 0230: Patient clinically intoxicated but redirectable. Will continue to monitor for improved sobriety and watch closely for any signs of alcohol withdrawal syndrome. When patient is able to demonstrate a steady gait, he can be discharged home. Medical Records Medical records reviewed: Yes I reviewed the patient's medical records. Lab Data Lab results reviewed: Yes I reviewed the patient's lab results. ECG Data Attestation: I personally reviewed and interpreted this ECG (s) as follows: Prior ECG tracings: not available for review Interpretation: Sinus 75, normal axis, no acute ischemic changes HPI General Date/Time Provider Initiated Documentation: 07/06/23 00:26 . Limitations to Documentation: altered mental status . Information obtained by: EMS . HPI Narrative: 58-year-old gentleman with unknown medical history presents for evaluation after a fall down the stairs. The patient endorses heavy alcohol use. He was witnessed by bystanders to fall down at least 15 stairs and was observed to be laying at the base of the stairs for at least several minutes before he was able to get up. On EMS arrival they noted him to have clinical intoxication and seemed to be confused. He was placed in a c-collar and transported here for evaluation. Related Data Home Medications Medication Instructions Recorded Confirmed cholecalciferol (vitamin D3) 25 1,000 unit PO DAILY 10/20/16 06/03/17 mcg (1,000 unit) capsule (Vitamin D3) cholestyramine (with sugar) 4 gram 4 g PO BID 10/20/16 06/03/17 powder for susp in a packet (Questran) clonazepam 2 mg tablet 2 mg PO BID 10/20/16 06/03/17 glucosamine [id number]-[id number]-[id number] 1 ea PO DAILY 10/20/16 06/03/17 camelia 1,500 mg-400 unit-100 mg tablet (Osteo Bi-Flex (5-Loxin)) multivitamin-ferrous 1 tab-cap PO DAILY 10/20/16 06/03/17 fumarate-folic acid 18 mg-400 mcg tablet (Centrum Complete) nitroglycerin 0.4 mg sublingual 0.4 mg buccal ONCE 10/20/16 06/03/17 tablet (Nitrostat) omega-3 fatty acids-fish oil 300 1 ea PO 10/20/16 mg-1,000 mg capsule venlafaxine 150 mg 150 mg PO DAILY 10/20/16 06/03/17 capsule,extended release 24 hr (Effexor XR) verapamil 120 mg 24 hr 240 mg PO DAILY 10/20/16 06/03/17 capsule,extended release clonazepam 2 mg tablet (Klonopin) 2 mg PO BID #4 tabs 06/03/17 buprenorphine 8 mg-naloxone 2 mg 1 film sublingual DAILY 08/13/20 12/25/21 sublingual film (Suboxone) amitriptyline 10 mg tablet 10 mg PO DAILY 12/25/21 12/25/21 amlodipine 5 mg tablet 5 mg PO DAILY 12/25/21 12/25/21 buprenorphine 2 mg-naloxone 0.5 mg 1 film buccal DAILY 12/25/21 sublingual film (Suboxone) buprenorphine 8 mg-naloxone 2 mg 1 tab sublingual DAILY 12/25/21 sublingual tablet ondansetron 4 mg disintegrating 4 mg PO Q8H PRN nausea and 12/25/21 tablet vomiting #10 tabs ondansetron 4 mg disintegrating 4 mg PO Q8H PRN nausea and 02/21/22 tablet vomiting #30 tabs ondansetron 4 mg disintegrating 4 mg PO Q8H PRN nausea and 02/21/22 tablet vomiting #30 tabs Previous Rx's Medication Instructions Recorded clonazepam 2 mg tablet (Klonopin) 2 mg PO BID #4 tabs 06/03/17 ondansetron 4 mg disintegrating 4 mg PO Q8H PRN nausea and 12/25/21 tablet vomiting #10 tabs ondansetron 4 mg disintegrating 4 mg PO Q8H PRN nausea and 02/21/22 tablet vomiting #30 tabs ondansetron 4 mg disintegrating 4 mg PO Q8H PRN nausea and 02/21/22 tablet vomiting #30 tabs Allergies Allergy/AdvReac Type Severity Reaction Status Date / Time NSAIDS (Non-Steroidal AdvReac Verified 07/06/23 00:32 Anti-Inflamma General Stated Complaint: Trauma ROHITH: 2 PFSH All Active Problems (Updated 07/06/23 @ 02:38 by Brunilda Ahuja MD) Fall (Acute) Alcohol intoxication in active alcoholic with complication (Acute) Contusion (Acute) Foot osteomyelitis, left (Acute) Medical History 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 HTN (hypertension) Lesion of penis H/O total hip arthroplasty Knee pain Chronic pain syndrome Dental infection Chest discomfort Hyperlipidemia Depression History of total left knee replacement ADD (attention deficit disorder) Medication monitoring encounter Anxiety Unintentional weight loss Chronic low back pain Rib pain on left side Urinary disorder Lumbar facet joint pain Social History Smoking/Tobacco Use Status: Current every day Tobacco Type: cigarettes Smoking risk assessment performed?: Yes Alcohol Intake: current Alcohol Intake frequency: a few times a month Alcohol type: beer Substance use type: marijuana Do you feel safe at home: No (lives at hotel) Do you feel safe in your relationship?: Yes Exam Narrative Exam Narrative: TRAUMATIC EVALUATION CONSTITUTIONAL: Alert and oriented to person and location HEENT: Abrasion noted over the right eyebrow, right and left parietal scalp C-collar in place EYES: PERRL, no conjunctival injection + nystagmus EARS: no external abnormality, no hemotympanum, no mastoid tenderness NOSE nares patent, no nasal septal hematoma MOUTH Moist MM, no facial instability, malocclusion or crepitus CVS: RRR, No murmurs or gallops. Peripheral pulses 2+ and equal in all extremities, Brisk capillary refill in all extremities. No peripheral edema RESP: Unlabored respiratory effort, Clear to auscultation bilaterally No wheezes rales or rhonchi no chest wall tenderness, crepitus or flail chest apparent GI: Soft, Nontender, Nondistended, No organomegaly Bruise noted to abdominal wall MSK: pelvis stable Extremities with full range of motion, no deformity or TTP midline C-T-L spine without step off, tenderness or deformity SKIN: Warm, Dry Multiple abrasions noted across back NEURO: manager pulmonary II-XII grossly intact Normal strength throughout Course Vital Signs Vital signs: Vital Signs Temperature 36.2 C L 07/06/23 00:20 Pulse 69 07/06/23 00:20 Respiratory Rate 18 07/06/23 00:20 Blood Pressure 141/84 H 07/06/23 00:20 Pulse Oximetry 97 07/06/23 00:20 Temperature 36.2 C L 07/06/23 00:20 Temperature Source Temporal Artery Scan 07/06/23 00:20 Pulse 69 07/06/23 00:20 Respiratory Rate 18 07/06/23 00:20 Respiratory Effort Normal 07/06/23 00:26 Blood Pressure 141/84 H 07/06/23 00:20 Blood Pressure Position Supine 07/06/23 00:20 Pulse Oximetry 97 07/06/23 00:20 Oxygen Delivery Method Room Air 07/06/23 00:20 Oxygen Flow Rate 0 07/06/23 00:20 Pain Level 2 07/06/23 00:20 Lab/Test Results Lab/Test Results: Laboratory Tests Range/Units 07/06/23 00:32 WBC (4.4-10.8) 10^3/uL 7.10 RBC (4.36-5.78) 10^6/uL 4.88 Hgb (13.5-17.5) g/dL 16.6 Hct (40.0-50.0) % 47.9 MCV (80-95) fL 98 H MCH (27.0-33.0) pg 34.0 H MCHC (32.0-36.0) % 34.7 RDW (11.8-14.1) % 11.9 Plt Count (130-400) 10^3/uL 288 MPV (8.0-11.0) fL 9.0 Immature Gran % 1.0 Neutrophils % 56.7 Lymphocytes % 33.2 Monocytes % 7.0 Eosinophils % 1.4 Basophils % 0.7 Nucleated RBC % (0.0-0.3) % 0.0 Absolute Neutrophils (1.2-6.7) 10^3/uL 4.02 Absolute Lymphocytes (1.2-3.4) 10^3/uL 2.36 Absolute Monocytes (0.1-0.8) 10^3/uL 0.50 Absolute Eosinophils (0.0-0.7) 10^3/uL 0.10 Absolute Basophils (0.0-0.2) 10^3/uL 0.05 PAWSS Have you Been Recently Intoxicated or Drunk Within the Last 30 days?: Yes Have you Ever Experienced Previous Episodes of Alcohol Withdrawal?: Unable to Obtain Have you ever Experienced Withdrawal Seizures?: Unable to Obtain Have you ever Experienced Delirium Tremens(DT)s?: Unable to Obtain Have you ever undergone Alcohol Rehabilitation Treatment (i.e, inpt ot outpatient treatment programs)?: Unable to Obtain Have you ever Experienced Blackouts?: Unable to Obtain Have you ever Combined Alcohol with other Downers within the last 90 days?: Unable to Obtain Have you ever Combined Alcohol with any other Substance of Abuse during the last 90 days?: Unable to Obtain Positive Blood Alcohol level on Presentation? [PCS.BAL]: Unable to Obtain Evidence of Increased Autonomic Activity (i.e. HR>120, tremor, sweating, agitation, nausea)?: Unable to Obtain Result: 1
[2023-07-06 00:51] LABS: INR 1.1 (0.9-1.1); PTT Activated 23.9 sec (23.6-32.8); Prothrombin Time 10.7 sec (9.1-11.1)
[2023-07-06 00:54] LABS: ALT 23 U/L (16-63); AST 21 U/L (15-37); Albumin 4.1 g/dL (3.4-5.0); Alkaline Phosphatase 74 U/L (46-116); Anion Gap 3.4 mmol/L (3-11); BUN 12 mg/dL (7-18); Bilirubin, Total 0.2 mg/dL (0.2-1.0); CO2 34.6 mmol/L (21.0-32.0); CREATININE 1.1 mg/dL (0.70-1.30); Calcium 8.9 mg/dL (8.5-10.1); Chloride 101 mmol/L (98-107); Estimated GFR 77.33 (mL/min/1.73m2); Glucose 141 mg/dL (74-106); Lipase 41 U/L (16-77); Potassium 4.2 mmol/L (3.5-5.1); Sodium 139 mmol/L (136-145)
[2023-07-06 00:59] LABS: ETHANOL BLOOD 355.6 mg/dL (<10)
--- NOTE | 2023-07-06 01:22 | DI.VRAD_ITS ---
PROCEDURE INFORMATION: Exam: CT Head Without Contrast Exam date and time: 07/06/2023 12:57 AM Age: 58 years old Clinical indication: Injury or trauma; Blunt trauma (contusions or hematomas); Consciousness not specified; Injury date: 07/06/23; Injury details: Fall down stairs TECHNIQUE: Imaging protocol: Computed tomography of the head without contrast. Radiation optimization: All CT scans at this facility use at least one of these dose optimization techniques: automated exposure control; mA and/or kV adjustment per patient size (includes targeted exams where dose is matched to clinical indication); or iterative reconstruction. COMPARISON: CT HEAD CERV SPINE FACIAL WO 12/25/2021 1:10 PM FINDINGS: Brain: Normal. No hemorrhage. Unremarkable white matter. No mass effect. Cerebral ventricles: No ventriculomegaly. Paranasal sinuses: Visualized sinuses are unremarkable. No fluid levels. Mastoid air cells: Visualized mastoid air cells are well aerated. Bones/joints: Unremarkable. No acute fracture. Soft tissues: Unremarkable. IMPRESSION: No acute intracranial abnormality. PROCEDURE INFORMATION: Exam: CT Cervical Spine Without Contrast Exam date and time: 07/06/2023 12:57 AM Age: 58 years old Clinical indication: Injury or trauma; Blunt trauma (contusions or hematomas); Consciousness not specified; Injury date: 07/06/23; Injury details: Fall down stairs TECHNIQUE: Imaging protocol: Computed tomography of the cervical spine without contrast. Radiation optimization: All CT scans at this facility use at least one of these dose optimization techniques: automated exposure control; mA and/or kV adjustment per patient size (includes targeted exams where dose is matched to clinical indication); or iterative reconstruction. COMPARISON: CT HEAD CERV SPINE FACIAL WO 12/25/2021 1:10 PM FINDINGS: Bones/joints: No acute fracture. Normal alignment. Multilevel degenerative disk disease and facet arthropathy with neuroforaminal and canal stenosis. Lungs: Lung apices are normal. Soft tissues: Unremarkable. IMPRESSION: No acute findings. Dictated and Authenticated by: Ilya Snider MD. Ordering:LING Allen MD
--- NOTE | 2023-07-06 01:41 | DI.VRAD_ITS ---
PROCEDURE INFORMATION: Exam: CT Thoracic Spine Without Contrast Exam date and time: 07/06/2023 1:07 AM Age: 58 years old Clinical indication: Injury or trauma; Blunt trauma (contusions or hematomas); Injury date: 07/06/23; Injury details: Fall down stairs TECHNIQUE: Imaging protocol: Computed tomography of the thoracic spine without contrast. Radiation optimization: All CT scans at this facility use at least one of these dose optimization techniques: automated exposure control; mA and/or kV adjustment per patient size (includes targeted exams where dose is matched to clinical indication); or iterative reconstruction. COMPARISON: CT CHEST/ABD/PEL W 07/06/2023 1:07 AM FINDINGS: Bones/joints: No acute fracture. Normal alignment. Chronic T8 vertebral body compression fracture with possible minimal chronic T12 fracture. IMPRESSION: No acute findings.. PROCEDURE INFORMATION: Exam: CT Lumbar Spine Without Contrast Exam date and time: 07/06/2023 1:07 AM Age: 58 years old Clinical indication: Injury or trauma; Blunt trauma (contusions or hematomas); Injury date: 07/06/23; Injury details: Fall down stairs TECHNIQUE: Imaging protocol: Computed tomography of the lumbar spine without contrast. Radiation optimization: All CT scans at this facility use at least one of these dose optimization techniques: automated exposure control; mA and/or kV adjustment per patient size (includes targeted exams where dose is matched to clinical indication); or iterative reconstruction. COMPARISON: CT CHEST/ABD/PEL W 07/06/2023 1:07 AM FINDINGS: Bones/joints: No acute fracture. Normal alignment. Multilevel degenerative disk disease and facet arthropathy with neuroforaminal and canal stenosis.. Soft tissues: Unremarkable. IMPRESSION: Unremarkable spine. Dictated and Authenticated by: Ilya Snider MD. Ordering:[facility] Leigha Allen MD
--- NOTE | 2023-07-06 01:51 | DI.VRAD_ITS ---
PROCEDURE INFORMATION: Exam: CT Chest With Contrast; Diagnostic Exam date and time: 07/06/2023 1:07 AM Age: 58 years old Clinical indication: Injury or trauma; Generalized; Blunt trauma (contusions or hematomas); Injury date: 07/06/23; Injury details: Fall down stairs TECHNIQUE: Imaging protocol: Diagnostic computed tomography of the chest with contrast. Radiation optimization: All CT scans at this facility use at least one of these dose optimization techniques: automated exposure control; mA and/or kV adjustment per patient size (includes targeted exams where dose is matched to clinical indication); or iterative reconstruction. Contrast material: OMNIPAQUE 350; Contrast volume: 100 ml; Contrast route: INTRAVENOUS (IV); COMPARISON: CR CHEST 2 VIEWS PA,LAT 06/03/2017 6:03 PM FINDINGS: Lungs: Unremarkable. No consolidation. No masses. Pleural spaces: Unremarkable. No pneumothorax. No pleural effusion. Heart: Unremarkable. No cardiomegaly. No pericardial effusion. Lymph nodes: Unremarkable. No enlarged lymph nodes. Vasculature: Unremarkable. No aortic aneurysm. Bones/joints: Unremarkable. No acute fracture. Soft tissues: Unremarkable. IMPRESSION: No acute findings. PROCEDURE INFORMATION: Exam: CT Abdomen And Pelvis With Contrast Exam date and time: 07/06/2023 1:07 AM Age: 58 years old Clinical indication: Injury or trauma; Generalized; Blunt trauma (contusions or hematomas); Injury date: 07/06/23; Injury details: Fall down stairs TECHNIQUE: Imaging protocol: Computed tomography of the abdomen and pelvis with contrast. Radiation optimization: All CT scans at this facility use at least one of these dose optimization techniques: automated exposure control; mA and/or kV adjustment per patient size (includes targeted exams where dose is matched to clinical indication); or iterative reconstruction. Contrast material: OMNIPAQUE 350; Contrast volume: 100 ml; Contrast route: INTRAVENOUS (IV); COMPARISON: CT THORACIC LUMBAR SPINE REC 07/06/2023 1:07 AM FINDINGS: Liver: Normal. No mass. Gallbladder and bile ducts: Normal. No calcified stones. No ductal dilation. Pancreas: Normal. No ductal dilation. Spleen: Normal. No splenomegaly. Adrenal glands: Normal. No mass. Kidneys and ureters: Normal. No hydronephrosis. Stomach and bowel: Unremarkable. No obstruction. No mucosal thickening. Appendix: No evidence of appendicitis. Intraperitoneal space: Unremarkable. No free air. No significant fluid collection. Vasculature: Unremarkable. No abdominal aortic aneurysm. Lymph nodes: Unremarkable. No enlarged lymph nodes. Urinary bladder: Unremarkable as visualized. Reproductive: Unremarkable as visualized. Bones/joints: Unremarkable. No acute fracture. Soft tissues: Unremarkable. IMPRESSION: No acute findings. Dictated and Authenticated by: Ilya Snider MD. Ordering:[facility] Leigha Allen MD
== END 2023-07-06 08:20 | disposition home or self-care (01) ==
PROVIDERS: Emergency Provider Emergency Medicine; PCP Family Medicine
DX: F10.129 Alcohol abuse with intoxication, unspecified (principal); S00.211A Abrasion of right eyelid and periocular area, initial encounter; S00.01XA Abrasion of scalp, initial encounter; S20.412A Abrasion of left back wall of thorax, initial encounter; S20.411A Abrasion of right back wall of thorax, initial encounter; R40.2412 Glasgow coma scale score 13-15, at arrival to emergency department; M48.54XA Collapsed vertebra, not elsewhere classified, thoracic region, initial encounter for fracture; I10 Essential (primary) hypertension; E78.5 Hyperlipidemia, unspecified; F17.210 Nicotine dependence, cigarettes, uncomplicated; Y90.6 Blood alcohol level of 120-199 mg/100 ml; W10.8XXA Fall (on) (from) other stairs and steps, initial encounter; Y93.01 Activity, walking, marching and hiking
CPT/HCPCS: 74177; 80053; 83690; 93005; 99285; 70450; 71260; 72125; 80320; 85025; 85610; 85730; 93010; 99284; J3490

== ENCOUNTER 2024-08-02 14:51 | Outpatient (REF) | payer MEDICARE, SELFPAY, MEDICAID ==
--- OUTSIDE RECORDS SUMMARY | 2024-08-02 14:53 | XMS_ITS | Encounter Summary ---
Author Organization [facility] Address [address] [place] [address] Care Team Providers Care Telehealth Director Name Role Phone None, Provider Primary Care Provider Unavailabl e Reason for Visit * (Routine) - Receiving Office to Obtain Authorization Specialty Diagnoses / Procedures Referred By Malinda waggoner Referred To Contact Procedures XR OUTSIDE IMAGES MSK Unknown, Provider, MD Referral ID Status Reason Start Date Expiration Date Visits Requested Visits Authorized [id number] Receiving Office to Obtain Authorization 01/25/2021 1 1 Encounter Details Date Type Department Care Team (Latest Contact Info) Description 01/25/2021 18:37 EDT - 01/25/2021 23:59 EDT Hospital Encounter [facility] Secondary Reads [place] Discharge Disposition: Home or Self Care Social History Tobacco Use Types Packs/Day Years Used Date Smoking Tobacco: Never Assessed Interpersonal Safety Answer Date Record ed Physically Hurt Never 08/09/2020 Verbally Threaten Not on file 08/09/2020 Sex and Gender Information Value Date Recorded Sex Assigned at Not on file Legal Sex Male 18:31 EDT Gender Identity Not on file Sexual Orientation Not on file COVID-19 Exposure Response Date Recorded In the last month, have you been in contact with someone who was confirmed or suspected to have Coronavirus / COVID-19? Unable to assess 01/25/2021 18:27 EDT documented as of this encounter Discharge Disposition Disposition Code Departure Means Destination Home or Self Care documented in this encounter Plan of Treatment Not on file documented as of this encounter Procedures Procedure Name Priority Date/Time Associated Diagnosis Comments XR OUTSIDE IMAGES MSK Routine 01/25/2021 18:38 EDT documented in this encounter Results * XR OUTSIDE IMAGES MSK (01/25/2021 18:38 EDT) Narrative 01/25/2021 18:38 EDT This is a non-reportable exam. us Provider Unknown MD IMG OTHER IMAGING ORDERABLES Final Result documented in this encounter Visit Diagnoses Not on filedocumented in this encounter Care Teams Telehealth Director Relationship Specialty Start Date End Date None, Provider PCP - General 08/09/20 documented as of this encounter
--- OUTSIDE RECORDS SUMMARY | 2024-08-02 14:53 | XMS_ITS | Encounter Summary ---
Author Organization [facility] Address [address] [place] [address] Care Team Providers Care Embedded Hardware Engineer Name Role Phone None, Provider Primary Care Provider Unavailabl e Encounter Details Date Type Department Care Team (Late st Contact Info) Description 11/13/2021 Lab Requisition [facility] Pathology & Laboratory Medicine - [facility] [address], [place] [id number] Outr Resulting Lab, Provider Social History Tobacco Use Types Packs/Day Years Used Date Smoking Tobacco: Never Assessed Interpersonal Safety Answer Date Record ed Physically Hurt Never 08/09/2020 Verbally Threaten Not on file 08/09/2020 Sex and Gender Information Value Date Recorded Sex Assigned at Not on file Legal Sex Male 18:31 EDT Gender Identity Not on file Sexual Orientation Not on file documented as of this encounter Plan of Treatment Not on file documented as of this encounter Procedures Procedure Name Priority Date/Time Associated Diagnosis Comments HOLD SST Today 11/13/2021 12:17 EDT HEPATITIS C AB W REFLEX TO HCV RNA BY PCR Today 11/13/2021 12:17 EDT HEPATITIS B SURFACE ANTIGEN Today 11/13/2021 12:17 EDT documented in this encounter Results * HOLD SST (11/13/2021 12:17 EDT) Hold Hold 11/13/2021 22:15 EDT [facility] Blood VENOUS BLOOD / Unknown 11/13/2021 12:17 EDT 11/13/2021 21:13 EDT us Provider Outr Resulting Lab LAB INFO SERVICE AND SUPPORT & PHONE RESULT Final Result [facility] [address] [place] [address] * HEPATITIS B SURFACE ANTIGEN (11/13/2021 12:17 EDT) Hep B Surface Ag Negative Negative 11/14/2021 10:02 EDT [facility] Blood VENOUS BLOOD / Unknown 11/13/2021 12:17 EDT 11/13/2021 21:13 EDT us Provider Outr Resulting Lab CHEMISTRY & BLOOD GA S ORDERABLES Final Result Performing Organization Address [facility] Co de Phone Number [facility] [address] [place] [address] * HEPATITIS C AB W REFLEX TO HCV RNA BY PCR (11/13/2021 12:17 EDT) Hep C Antibody Negative Negative 11/14/2021 10:36 EDT [facility] Blood VENOUS BLOOD / Unknown 11/13/2021 12:17 EDT 11/13/2021 21:13 EDT us Provider Outr Resulting Lab CHEMISTRY & BLOOD GA S ORDERABLES Final Result Performing Organization Address [facility] Co de Phone Number [facility] [address] [place] [address] documented in this encounter Visit Diagnoses Not on filedocumented in this encounter Care Teams Embedded Hardware Engineer Relationship Specialty Start Date End Date None, Provider PCP - General 08/09/20 documented as of this encounter
--- OUTSIDE RECORDS SUMMARY | 2024-08-02 14:53 | XMS_ITS | Encounter Summary ---
Author Organization [facility] Address [address] [place] [address] Care Team Providers Care Collections Clerk Name Role Phone None, Provider Primary Care Provider Unavailabl e Encounter Details Date Type Department Care Team (Late st Contact Info) Description 11/19/2021 Lab Requisition [facility] Pathology & Laboratory Medicine - [facility] [address] [place] [address] Outr Resulting Lab, Provider Social History Tobacco [...] Procedure Name Priority Date/Time Associated Diagnosis Comments LYME AB Routine 11/19/2021 17:05 EDT documented in this encounter Results * LYME AB (11/19/2021 17:05 EDT) Lyme Ab Negative Negative 11/21/2021 10:51 EDT [facility] Blood VENOUS BLOOD / Unknown 11/19/2021 17:05 EDT 11/20/2021 16:44 EDT us Provider Outr Resulting Lab IMMUNOLOGY AND SEROL OGY ORDERABLES Final Result [facility] [address] [place] [address] documented in this encounter Visit Diagnoses Not on filedocumented in this encounter Care Teams Collections Clerk Relationship Specialty Start Date End Date None, Provider PCP - General 08/09/20 documented as of this encounter
--- OUTSIDE RECORDS SUMMARY | 2024-08-02 14:53 | XMS_ITS | Encounter Summary ---
Author Organization [facility] Address [address] [place] [address] Care Team Providers Care Marine Electronics Technician Name Role Phone None, Provider Primary Care Provider Unavailabl e Encounter Details Date Type Department Care Team (Latest Contact Info) Description 01/25/2021 Travel Social History Tobacco Use Types Packs/Day Years [...] 18:27 EDT documented as of this encounter Plan of Treatment Not on file documented as of this encounter Visit Diagnoses Not on filedocumented in this encounter Care Teams Marine Electronics Technician Relationship Specialty Start Date End Date None, Provider PCP - General 08/09/20 documented as of this encounter
--- OUTSIDE RECORDS SUMMARY | 2024-08-02 14:53 | XMS_ITS | Encounter Summary ---
Author Organization [facility] Address [address] [place] [address] Care Team Providers Care Legal Referee Name Role Phone None, Provider Primary Care Provider Unavailabl e Encounter Details Date Type Department Care Team (Late st Contact Info) Description 01/02/2020 Lab Requisition [facility] Pathology & Laboratory Medicine - [facility] [address] [place] [address] Outr Resulting Lab, Provider Social History Tobacco Use Types Packs/Day Years Used Date Smoking Tobacco: Never Assessed Sex and Gender Information Value Date Recorded Sex Assigned at Not on file Legal Sex Male 18:31 EDT Gender Identity Not on file Sexual Orientation Not on file documented as of this encounter Plan of Treatment Not on file documented as of this encounter Procedures Procedure Name Priority Date/Time Associated Diagnosis Comments HIV 1/2 ANTIGEN AND ANTIBODY, 4TH GENERATION Routine 01/02/2020 7:10 EDT documented in this encounter Results * HIV 1/2 ANTIGEN AND ANTIBODY, 4TH GENERATION (01/02/2020 7:10 EDT) HIV 1 and 2 Antibody/p24 Antigen, 4th Generation Negative Negative 01/03/2020 11:09 EDT [facility] Comment: If acute HIV-1 infection is suspected in a high risk ??patient, submit plasma specimen for HIV-1 RNA quantitation test. Fourth Generation assay performed on the Siemens Centaur. Blood VENOUS BLOOD / Unknown 01/02/2020 7:10 EDT 01/02/2020 19:24 EDT us Provider Outr Resulting Lab IMMUNOLOGY AND SEROL OGY ORDERABLES Final Result [facility] [address] [place] [address] documented in this encounter Visit Diagnoses Not on filedocumented in this encounter Care Teams Legal Referee Relationship Specialty Start Date End Date None, Provider PCP - General 08/09/20 documented as of this encounter
--- OUTSIDE RECORDS SUMMARY | 2024-08-02 14:53 | XMS_ITS | Referral Summary ---
Author Organization [facility] Address [address] [place] [address] Care Team Providers Care Ballet Soloist Name Role Phone None, Provider Primary Care Provider Unavailabl e Social History Tobacco Use Types Packs/Day Years Used Date Smoking Tobacco: Never Assessed Interpersonal Safety Answer Date Record ed Physically Hurt Never 08/09/2020 Verbally Threaten Not on file 08/09/2020 Sex and Gender Information Value Date Recorded Sex Assigned at Not on file Legal Sex Male 18:31 EDT Gender Identity Not on file Sexual Orientation Not on file Plan of Treatment Not on file Procedures Procedure Name Priority Date/Time Associated Diagnosis Comments HEPATITIS C AB W REFLEX TO HCV RNA BY PCR Today 11/13/2021 12:17 EDT from Last 3 Months or Most Recently Relevant to Health Maintenance Results * HEPATITIS C AB W REFLEX TO HCV RNA BY PCR (11/13/2021 12:17 EDT) Hep C Antibody Negative Negative 11/14/2021 10:36 EDT [facility] Blood VENOUS BLOOD / Unknown 11/13/2021 12:17 EDT 11/13/2021 21:13 EDT us Provider Outr Resulting Lab CHEMISTRY & BLOOD GA S ORDERABLES Final Result [facility] [address] [place] [address] from Last 3 Months or Most Recently Relevant to Health Maintenance Insurance [facility] Care Teams Ballet Soloist Relationship Specialty Start Date End Date None, Provider PCP - General 08/09/20
--- OUTSIDE RECORDS SUMMARY | 2024-08-02 14:53 | XMS_ITS | Encounter Summary ---
Author Organization [facility] Address [address] [place] [address] Care Team Providers Care Cable Splicer Assistant Name Role Phone None, Provider Primary Care Provider Unavailabl e Encounter Details Date Type Department Care Team (Late st Contact Info) Description 11/13/2021 Lab Requisition [facility] Pathology & Laboratory Medicine - Main [place] [address] [place] [address] Outr Resulting Lab, Provider Social History Tobacco [...] 1/2 ANTIGEN AND ANTIBODY, 4TH GENERATION Routine 11/13/2021 12:17 EDT documented in this encounter Results * HIV 1/2 ANTIGEN AND ANTIBODY, 4TH GENERATION (11/13/2021 12:17 EDT) HIV 1 and 2 Antibody/p24 Antigen, 4th Generation Negative Negative 11/14/2021 12:57 EDT [facility] Comment:If acute HIV-1 infec tion is suspected in a high risk patient, submit plasma specimen for HIV-1 RNA quantitation test. Blood VENOUS BLOOD / Unknown 11/13/2021 12:17 EDT 11/13/2021 21:20 EDT Narrative [facility] - 11/14/2021 12:57 EDT Fourth Generation assay performed on the Siemens MenoGeniXaur XPT. us Provider Outr Resulting Lab IMMUNOLOGY AND SEROL OGY ORDERABLES Final Result [facility] [address] [place] [address] documented in this encounter Visit Diagnoses Not on filedocumented in this encounter Care Teams Cable Splicer Assistant Relationship Specialty Start Date End Date None, Provider PCP - General 08/09/20 documented as of this encounter
--- OUTSIDE RECORDS SUMMARY | 2024-08-02 14:53 | XMS_ITS | Clinical Summary ---
Author Organization [facility] Address [address] [place] [address] Care Team Providers Care Admiralty Lawyer Name Role Phone None, Provider Primary Care [...] Orientation Not on file Plan of Treatment Health Maintenance Due Date Last Done Comments Hepatitis B Vaccine (1 of 3 - 19+ 3-dose series) 05/27 COVID-19 Vaccine (2023- season) 2024 RSV Immunization ( o r 60+ Years) (1 - 1-dose 75+ series) 2039 Hepatitis C Screen Completed 11/13/2021 Procedures Procedure Name Priority Date/Time Associated Diagnosis Comments HEPATITIS C AB W REFLEX TO HCV RNA BY PCR Today 11/13/2021 12:17 EDT from Last 3 Months or Most Recently Relevant to Health Maintenance Results * HEPATITIS C AB W REFLEX TO HCV RNA BY PCR (11/13/2021 12:17 EDT) Hep C Antibody Negative Negative 11/14/2021 10:36 EDT [facility] Blood VENOUS BLOOD / Unknown 11/13/2021 12:17 EDT 11/13/2021 21:13 EDT us Provider Outr Resulting Lab CHEMISTRY & BLOOD GA S ORDERABLES Final Result [facility] [address] [place] [address] from Last 3 Months or Most Recently Relevant to Health Maintenance Insurance [facility] [address] [place] [address] [place] [address] Care Teams Admiralty Lawyer Relationship Specialty Start Date End Date None, Provider PCP - General 08/09/20
[2024-08-02 15:58] LABS: HCT 46.6 % (40.0-50.0); HGB 15.8 g/dL (13.5-17.5); MCH 33.4 pg (27.0-33.0); MCHC 33.9 % (32.0-36.0); MCV 99 fL (80-95); Platelet Count 295 10^3/uL (130-400); RBC 4.73 10^6/uL (4.36-5.78); RDW 12.5 % (11.8-14.1); RDW-SD 45.3 fL
[2024-08-02 16:08] LABS: ALT 22 U/L (16-63); AST 19 U/L (15-37); Albumin 4.4 g/dL (3.4-5.0); Alkaline Phosphatase 73 U/L (46-116); Anion Gap 12.6 mmol/L (3-11); BUN 15 mg/dL (7-18); Bilirubin, Total 0.36 mg/dL (0.2-1.0); CO2 26.4 mmol/L (21.0-32.0); CREATININE 1.2 mg/dL (0.70-1.30); Calcium 9.4 mg/dL (8.5-10.1); Calculated LDL 151 mg/dL (<100); Chloride 105 mmol/L (98-107); Cholesterol 258 mg/dL (<200); Estimated GFR 69.23 (mL/min/1.73m2); Glucose 96 mg/dL (74-106); HDL Cholesterol 81 mg/dL (40-60); Potassium 4.7 mmol/L (3.5-5.1); Sodium 144 mmol/L (136-145); Triglyceride 133 mg/dL (<150)
== END 2024-08-02 14:52 | disposition home or self-care (01) ==
LOC: NCHCN 14:51
PROVIDERS: PCP Physician Assistant; Visit Provider Physician Assistant
DX: I10 Essential (primary) hypertension (principal)
CPT/HCPCS: 80053; 80061; 85027

== ENCOUNTER 2024-08-04 00:12 | Outpatient (CLI) | payer MEDICARE, SELFPAY, MEDICAID ==
--- NOTE | 2024-08-04 | DI.MRI_ITS ---
Exam(s) MR ABDOMEN WO/W EXAM: MR ABDOMEN WO/W CLINICAL HISTORY: K76.9 Liver disease, lesion on US in February TECHNIQUE: Multiplanar multisequence MRI of the Abdomen was performed. CONTRAST MATERIAL: IV Contrast: 15 mL of Dotarem contrast administered. COMPARISON: CT CT CHEST/ABD/PEL W from 07/06/2023 US US ABDOMINAL LIMITED from 02/15/2024 FINDINGS: Exam is limited by motion. Lung bases: Unremarkable. Liver: Normal size. No focal liver lesion is visible. No abnormal enhancement identified. The lesi on seen on ultrasound is likely too small to be characterized by this examination given due to degree of motion. No abnormality was seen on the prior CT although that exam showed motion as well. Pancreas: Unremarkable. Gallbladder and Bile Ducts: Unremarkable. Adrenals: Unremarkable. Kidneys: Unremarkable. Tiny upper pole right renal cyst. Spleen: Unremarkable. Aorta: Unremarkable. Soft Tissues: Unremarkable. Bone: Unremarkable. Lymph Nodes: Unremarkable. Stomach and bowel: Unremarkable. Peritoneal cavity: Unremarkable. No evidence of ascites. IMPRESSION: No liver lesion is demonstrated on the current exam. The exam is somewhat limited by motion. Ultrasound follow-up of the 10 millimeter hyperechoic lesion could be considered. DATA REPOSITORY:
--- OUTSIDE RECORDS SUMMARY | 2024-08-04 00:14 | XMS_ITS | Clinical Summary ---
Author Organization [facility] Address [address] [place] [id number] Care Team Providers Care Plumber And Tinner Name Role Phone None, Provider Primary Care [...] C Antibody Negative Negative 11/14/2021 10:36 EDT [facility] Blood VENOUS BLOOD / Unknown 11/13/2021 12:17 EDT 11/13/2021 21:13 EDT us Provider Outr Resulting Lab CHEMISTRY & BLOOD GA S ORDERABLES Final Result [facility] [address] [place] [address] from Last 3 Months or Most Recently Relevant to Health Maintenance Insurance [facility] [address] [place] [address] [place] [address] Care Teams Plumber And Tinner Relationship Specialty Start Date End Date None, Provider PCP - General 08/09/20
--- OUTSIDE RECORDS SUMMARY | 2024-08-04 00:14 | XMS_ITS | Encounter Summary ---
Author Organization [facility] Address [address] [place] [address] Care Team Providers Care Digital Imager Name Role Phone None, Provider Primary Care Provider Unavailabl e Encounter Details Date Type Department Care Team (Late st Contact Info) Description 11/13/2021 Lab Requisition [facility] Pathology & Laboratory Medicine - Main [place] [address] [place] [address] Outr Resulting Lab, Provider Social History Tobacco [...] 4th Generation Negative Negative 11/14/2021 12:57 EDT [facility] Comment:If acute HIV-1 infec tion is suspected in a high risk patient, submit plasma specimen for HIV-1 RNA quantitation test. Blood VENOUS BLOOD / Unknown 11/13/2021 12:17 EDT 11/13/2021 21:20 EDT Narrative [facility] - 11/14/2021 12:57 EDT Fourth Generation assay performed on the Siemens YouFolioaur XPT. us Provider Outr Resulting Lab IMMUNOLOGY AND SEROL OGY ORDERABLES Final Result [facility] [address] [place] [address] documented in this encounter Visit Diagnoses Not on filedocumented in this encounter Care Teams Digital Imager Relationship Specialty Start Date End Date None, Provider PCP - General 08/09/20 documented as of this encounter
--- OUTSIDE RECORDS SUMMARY | 2024-08-04 00:14 | XMS_ITS | Encounter Summary ---
Author Organization [facility] Address [address] [place] [address] Care Team Providers Care Forklift Driver Name Role Phone None, Provider Primary Care [...] on filedocumented in this encounter Care Teams Forklift Driver Relationship Specialty Start Date End Date None, Provider PCP - General 08/09/20 documented as of this encounter
--- OUTSIDE RECORDS SUMMARY | 2024-08-04 00:14 | XMS_ITS | Encounter Summary ---
Author Organization [facility] Address [address] [place] [address] Care Team Providers Care Masonry Contractor Administrator Name Role Phone None, Provider Primary Care Provider Unavailabl e Encounter Details Date Type Department Care Team (Late st Contact Info) Description 01/02/2020 Lab Requisition [facility] Pathology & Laboratory Medicine - [facility] [address] [place] [address] Outr Resulting Lab, Provider Social [...] 4th Generation Negative Negative 01/03/2020 11:09 EDT [facility] Comment: If acute HIV-1 infection is suspected in a high risk ??patient, submit plasma specimen for HIV-1 RNA quantitation test. Fourth Generation assay performed on the Siemens Centaur. Blood VENOUS BLOOD / Unknown 01/02/2020 7:10 EDT 01/02/2020 19:24 EDT us Provider Outr Resulting Lab IMMUNOLOGY AND SEROL OGY ORDERABLES Final Result [facility] [address] [place] [address] documented in this encounter Visit Diagnoses Not on filedocumented in this encounter Care Teams Masonry Contractor Administrator Relationship Specialty Start Date End Date None, Provider PCP - General 08/09/20 documented as of this encounter
--- OUTSIDE RECORDS SUMMARY | 2024-08-04 00:14 | XMS_ITS | Encounter Summary ---
Author Organization [facility] Address [address] [place] [address] Care Team Providers Care Flying Instructor Name Role Phone None, Provider Primary Care Provider Unavailabl e Reason for Visit * (Routine) - Receiving Office to Obtain Authorization Specialty Diagnoses / Procedures Referred By Malinda waggoner Referred To Contact Procedures XR OUTSIDE IMAGES MSK Unknown, Provider, MD Referral ID Status Reason Start Date Expiration Date Visits Requested Visits Authorized [id number] Receiving Office to Obtain Authorization 01/25/2021 1 1 Encounter Details Date Type Department Care Team (Latest Contact Info) Description 01/25/2021 18:37 EDT - 01/25/2021 23:59 EDT Hospital Encounter [facility] Secondary Reads [place] Discharge Disposition: Home or [...] on filedocumented in this encounter Care Teams Flying Instructor Relationship Specialty Start Date End Date None, Provider PCP - General 08/09/20 documented as of this encounter
--- OUTSIDE RECORDS SUMMARY | 2024-08-04 00:14 | XMS_ITS | Encounter Summary ---
Author Organization [facility] Address [address] [place] [address] Care Team Providers Care Poultry Hatchery Man Name Role Phone None, Provider Primary Care Provider Unavailabl e Encounter Details Date Type Department Care Team (Late st Contact Info) Description 11/19/2021 Lab Requisition [facility] Pathology & Laboratory Medicine - [facility] [address] [place] [address] Outr Resulting Lab, Provider Social History Tobacco [...] Lyme Ab Negative Negative 11/21/2021 10:51 EDT [facility] Blood VENOUS BLOOD / Unknown 11/19/2021 17:05 EDT 11/20/2021 16:44 EDT us Provider Outr Resulting Lab IMMUNOLOGY AND SEROL OGY ORDERABLES Final Result [facility] [address] [place] [address] documented in this encounter Visit Diagnoses Not on filedocumented in this encounter Care Teams Poultry Hatchery Man Relationship Specialty Start Date End Date None, Provider PCP - General 08/09/20 documented as of this encounter
--- OUTSIDE RECORDS SUMMARY | 2024-08-04 00:14 | XMS_ITS | Referral Summary ---
Author Organization [facility] Address [address] [place] [address] Care Team Providers Care Mechanical Technician Name Role Phone None, Provider Primary [...] C Antibody Negative Negative 11/14/2021 10:36 EDT [facility] Blood VENOUS BLOOD / Unknown 11/13/2021 12:17 EDT 11/13/2021 21:13 EDT us Provider Outr Resulting Lab CHEMISTRY & BLOOD GA S ORDERABLES Final Result [facility] [address] [place] [address] from Last 3 Months or Most Recently Relevant to Health Maintenance Insurance [facility] Care Teams Mechanical Technician Relationship Specialty Start Date End Date None, Provider PCP - General 08/09/20
--- OUTSIDE RECORDS SUMMARY | 2024-08-04 00:14 | XMS_ITS | Encounter Summary ---
Author Organization [facility] Address [address] [place] [address] Care Team Providers Care Burr Machine Operator Name Role Phone None, Provider Primary Care Provider Unavailabl e Encounter Details Date Type Department Care Team (Late st Contact Info) Description 11/13/2021 Lab Requisition [facility] Pathology & Laboratory Medicine - [facility] [address] [place], [place] [address] Outr Resulting Lab, Provider Social History Tobacco [...] 12:17 EDT) Hold Hold 11/13/2021 22:15 EDT [facility] Blood VENOUS BLOOD / Unknown 11/13/2021 12:17 EDT 11/13/2021 21:13 EDT us Provider Outr Resulting Lab LAB INFO SERVICE AND SUPPORT & PHONE RESULT Final Result [facility] [address] [place] [address] * HEPATITIS B SURFACE ANTIGEN (11/13/2021 12:17 EDT) Hep B Surface Ag Negative Negative 11/14/2021 10:02 EDT [facility] Blood VENOUS BLOOD / Unknown 11/13/2021 12:17 EDT 11/13/2021 21:13 EDT us Provider Outr Resulting Lab CHEMISTRY & BLOOD GA S ORDERABLES Final Result Performing Organization Address [facility] Co de Phone Number [facility] [address] [place] [address] * HEPATITIS C AB W REFLEX TO HCV RNA BY PCR (11/13/2021 12:17 EDT) Hep C Antibody Negative Negative 11/14/2021 10:36 EDT [facility] Blood VENOUS BLOOD / Unknown 11/13/2021 12:17 EDT 11/13/2021 21:13 EDT us Provider Outr Resulting Lab CHEMISTRY & BLOOD GA S ORDERABLES Final Result Performing Organization Address [facility] Co de Phone Number [facility] [address] [place] [address] documented in this encounter Visit Diagnoses Not on filedocumented in this encounter Care Teams Burr Machine Operator Relationship Specialty Start Date End Date None, Provider PCP - General 08/09/20 documented as of this encounter
[2024-08-04] MEDS: Normal Saline - Diluent 50 ML VIAL 25 ML IJ (14:39)
[2024-08-04] MEDS: Gadoterate meglumine 20 ML VIAL 15 ML IVP (14:40)
== END 2024-08-04 00:32 ==
PROVIDERS: PCP Physician Assistant; Visit Provider Physician Assistant
DX: K76.9 Liver disease, unspecified (principal)
CPT/HCPCS: 74183

== ENCOUNTER → 2024-10-06 10:51 | Outpatient (BNVA) | payer MEDICARE, MEDICAID, SELFPAY | PROVIDERS: PCP Physician Assistant; Referring Provider Physician Assistant; Visit Provider Physical Therapy Assistant | DX: Z12.11 Encounter for screening for malignant neoplasm of colon (principal); I10 Essential (primary) hypertension ==

== ENCOUNTER 2024-10-17 15:16 | Emergency (ER) | payer MEDICARE, SELFPAY ==
[2024-10-17 15:29] VITALS: BP 169/82; PULSE 96; RESP 15; TEMP 37; O2SAT 97
[2024-10-17 15:33] VITALS: BP 169/82; PULSE 96; RESP 15; TEMP 37; O2SAT 97
[2024-10-17 16:25] VITALS: BP 146/88; PULSE 90; RESP 18; TEMP 36.7; O2SAT 96
[2024-10-17 16:45] VITALS: BP 162/74; PULSE 68
--- NOTE | 2024-10-17 16:57 | ED.GENADUL_ITS ---
Discharge Plan Disposition Patient Disposition: Home Condition: Stable Discharge Details Clinical Impression: Blurred vision Primary Care Provider: Flavio Flores ED Provider: Rickie Low Home Meds and New Rx's Prescriptions: Continued amlodipine 5 mg Tablet 5 mg PO DAILY Discharge Instructions Instructions: Cataracts Additional Instructions: You were seen in the emergency department for the acute worsening of your vision of your right eye, you have a complex history of bilateral cataract surgery and lens implants. You have no eye pain and no acute complete loss of vision and no trauma to the area no signs of infection. At your request I did consult with ophthalmology prior to instigating lengthy workup here, they will see you at 7:30 AM on Thursday at [facility] at the [facility] campus at [address] in [place], [place]. Please be on-time and present to this visit. Please return to an ED for any complete loss of vision, eye pain, or other emergent concerns. Referrals: [facility] [Outside] Flavio Flores [Primary Care Provider] - Discharge Data Discharge Date/Time-TO BE ENTERED AT DEPARTURE: 10/17/24 18:53 HPI General Date/Time Provider Initiated Documentation: 10/17/24 15:43 . 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 Quality described as can see silhouettes and cant focus on reading, states its like there is a black horizontal line across his vision usually in the upper field of view of R eye, denies visual loss, endorses headache, denies eye swelling or fever, denies pain with eye movements, denies curtain-like vision loss, denies scotoma, denies neurologic abnormalities. Severity is described as severe. Palliating factors include nothing specific attempted. Provoking factors include nothing specific. Events leading up to the incident/Associated Symptoms: Patient does not regularly go to any eye doctor. Patient not anticoagulated. Related Data Home Medications ?Medication ?Instructions ?Recorded ?Confirmed amlodipine 5 mg tablet 5 mg PO DAILY 12/25/21 10/17/24 Allergies Allergy/AdvReac Type Severity Reaction Status Date / Time baclofen Allergy Severe tachycardia Verified 10/17/24 15:32 clonidine (From Catapres) Allergy Severe tachycardia Verified 10/17/24 15:32 diclofenac Allergy Severe Anaphylaxis Verified 10/17/24 15:32 fentanyl AdvReac Severe nausea Verified 10/17/24 15:32 gabapentin (From Neurontin) AdvReac Severe heart Verified 10/17/24 15:32 racing mirtazapine (From Remeron) AdvReac Severe raises Verified 10/17/24 15:32 cholesterol morphine (From MS Contin) AdvReac Severe Nausea Verified 10/17/24 15:32 NSAIDS (Non-Steroidal AdvReac Swelling/Ed Verified 10/17/24 15:32 Anti-Inflamma saul General Stated Complaint: EyeProblem ROHITH: 3 Review of Systems All systems reviewed & are unremarkable except as noted in HPI and below Exam Narrative Exam Narrative: GENERAL APPEARANCE: Well-nourished, non-toxic, awake and alert, atraumatic, no acute distress. SKIN: Warm, pink, dry, intact, without rashes/lesions/ulcerations. HEAD: Normocephalic, atraumatic, normal hair distribution for gender/age. EYES: Normal conjunctiva, no exudates on lids/lashes, EOMs intact, no orbital swelling, no pain with eye movement, 3/100 OS, 0/100 OD, fundus not well visualized, is able to detect motion all rodriguez OS with visual field testing ENT: Nares patent, no circumoral cyanosis, no facial swelling NECK: Supple, trachea midline, painless cervical ROM. LUNGS/CHEST: Non-labored respirations, normal A/P diameter, symmetrical expansion, no chest wall deformity HEART (CV/PV): No peripheral edema, no JVD. ABDOMEN: Soft, non-distended, no guarding. MSK: Normal ROM, no swelling/deformity to bilateral UEs or LEs, moving all extremities without weakness, no cyanosis, spine midline without tenderness, normal curvature. NEURO: Mental Status AAOx4 - alert to person, place, time, events No facial droop, no forehead involvement. Motor: No focal weakness - strength 5/5 in bilateral UEs and LEs, proximal and distal, symmetric. Sensory: sensation intact to light touch globally. Gait normal: patient ambulated without ataxia into ED room. PSYCH: euthymic, cooperative, pleasant, appropriate speech Course Vital Signs Vital signs: Vital Signs Temperature 37.0 C 10/17/24 15:29 Pulse 96 H 10/17/24 15:29 Respiratory Rate 15 10/17/24 15:29 Blood Pressure 169/82 H 10/17/24 15:29 Pulse Oximetry 97 10/17/24 15:29 Temperature 36.7 C 10/17/24 16:25 Temperature Source Oral 10/17/24 16:25 Pulse 68 10/17/24 16:45 Respiratory Rate 18 10/17/24 16:25 Blood Pressure 162/74 H 10/17/24 16:45 Blood Pressure Mean 103 10/17/24 16:45 Blood Pressure Position Sitting 10/17/24 15:33 Pulse Oximetry 96 10/17/24 16:25 Oxygen Delivery Method Room Air 10/17/24 16:25 Oxygen Flow Rate 0 10/17/24 16:25 Medical Decision Making This dictation utilizes [id number] dictation software and may contain unedited grammatical errors. 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 Quality described as can see silhouettes and cant focus on reading, states its like there is a black horizontal line across his vision usually in the upper field of view of R eye, denies visual loss, endorses headache, denies eye swelling or fever, denies pain with eye movements, denies curtain-like vision loss, denies scotoma, denies neurologic abnormalities. Severity is described as severe. Palliating factors include nothing specific attempted. Provoking factors include nothing specific. Events leading up to the incident/Associated Symptoms: Patient does not regularly go to any eye doctor. Patients' medical history: History of viral hepatitis C, nicotine dependence, opioid use disorder, hypertension. Family and social history: Lives independently, eats normal diet, denies EtOH or IVDU. Pertinent exam findings / vital signs include funduscopic exam not well visua lized, no pain with EOM movement, EOMs intact without nystagmus, visual rodriguez intact, vision OD: 3/100, OS: 0/100. Differential / pathologies of concern include retinal detachment, CRAO, CRVO, cataracts, macular degeneration, vitreous hemorrhage, not orbital cellulitis. Diagnostic studies of: -None- discussed with possible CTAs; possible need for MRIs; referrals etc- patient wants me to check with ophtho before he stays for work-up. Interventions of: -[place] [facility] - Spoke with Dr. Riley - they will see the patient for dilated eye exam on . morning at 0730. 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 I arranged for him to see [facility] [place] within 36 hours which the patient is comfortable with I did stress strict return criteria for him to an emergency department immediately for further changes to his vision especially with pain. Findings not consistent with complete loss of vision, orbital cellulitis, trauma. Disposition of blurred vision. Patient verbalized understanding of the plan and return to ED criteria and engaged in shared decision making. Medical Records Medical records reviewed: Yes I reviewed the patient's medical records. Quality:SDOH Health Related Social Needs: No Data to Display PFSH All Active Problems (Updated 10/17/24 @ 18:20 by IBIS Mans[place]) Blurred vision (Acute) Foot osteomyelitis, left (Acute) Medical History (Updated 10/17/24 @ 18:20 by IBIS [place]) Acne vulgaris Legionella pneumonia Hyponatremia Lesion of liver Viral hepatitis C Steatosis of liver Nicotine dependence 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, predominantly inattentive type Anxiety disorder Essential hypertension HTN (hypertension) Lesion of penis H/O total hip arthroplasty Knee pain Chronic pain syndrome Dental infection Chest discomfort Hyperlipidemia Depression History of total left knee replacement ADD (attention deficit disorder) Medication monitoring encounter Anxiety Unintentional weight loss Chronic low back pain Rib pain on left side Urinary disorder Lumbar facet joint pain Surgical History 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 Social History (Updated 10/06/24 @ 13:15 by IBIS [place]) Smoking/Tobacco Use Status: Current every day Tobacco Type: cigarettes Smoking risk assessment performed?: Yes Alcohol Intake: current Alcohol Intake frequency: 0-2 drinks per day Alcohol type: beer Drug use: Occasionally Substance use type: marijuana Do you feel safe at home: No (lives at hotel) Do you feel safe in your relationship?: Yes PAWSS Have you Been Recently Intoxicated or Drunk Within the Last 30 days?: No Have you Ever Experienced Previous Episodes of Alcohol Withdrawal?: No Have you ever Experienced Withdrawal Seizures?: No Have you ever Experienced Delirium Tremens(DT)s?: No Have you ever undergone Alcohol Rehabilitation Treatment (i.e, inpt ot outpatient treatment programs)?: No Have you ever Experienced Blackouts?: No Have you ever Combined Alcohol with other Downers within the last 90 days?: No Have you ever Combined Alcohol with any other Substance of Abuse during the last 90 days?: No Positive Blood Alcohol level on Presentation? [PCS.BAL]: No Evidence of Increased Autonomic Activity (i.e. HR>120, tremor, sweating, agitation, nausea)?: No Result: 0
== END 2024-10-17 18:53 | disposition home or self-care (01) ==
PROVIDERS: Emergency Provider Physician Assistant; PCP Physician Assistant
DX: H53.8 Other visual disturbances (principal); I10 Essential (primary) hypertension; E78.5 Hyperlipidemia, unspecified; F17.210 Nicotine dependence, cigarettes, uncomplicated
CPT/HCPCS: 99283

== ENCOUNTER 2024-11-11 11:52 | Outpatient (REF) | payer MEDICARE, MEDICAID, SELFPAY ==
[2024-11-11 16:00] LABS: FREE T4 0.96 ng/dL (0.76-1.46); TSH 0.55 uIU/mL (0.36-3.74)
[2024-11-11 16:43] LABS: Vitamin B12 574 pg/mL (193-986)
== END 2024-11-11 11:53 | disposition home or self-care (01) ==
LOC: NCHCN 11:52
PROVIDERS: PCP Physician Assistant; Visit Provider Physician Assistant
DX: G64 Other disorders of peripheral nervous system (principal)
CPT/HCPCS: 82607; 84439; 84443

== ENCOUNTER 2025-01-06 09:16 | Day surgery (SDC) | payer MEDICARE, SELFPAY ==
--- NOTE | 2025-01-05 15:46 | W.PREOPHP ---
Assessment and Plan Assessment and plan (1) Encounter for screening colonoscopy: Status: Acute Assessment and plan: We reviewed the plan for screening colonoscopy today, and I explained the risks and benefits of the procedure once again. Farooq had the chance to ask any other questions. History of Present Illness History of Present Illness Chief Complaint: Screening colonoscopy Narrative: 59 y/o male with history of opioid use (current sobriety), HTN, anxiety, ADHD, HLD and depression presents for colonoscopy screening pre-op. He denies a family history of colon cancer. He denies any changes in bowel habits including bloody or black tarry stools, abdominal pain, diarrhea or constipation. He denies constitutional symptoms. He denies chest pain, palpitations, dyspnea or dyspnea with exertion. He denies prior history or family history of adverse reactions or complications with anesthesia. The patient denies any history of stroke, DE, seizures, bleeding or clotting disorders. He has metal implanted in his right hip and left knee. Since his last office encounter, there have been no major changes with regards to the interval history PFSH All Active Problems Encounter for screening colonoscopy (Acute) Foot osteomyelitis, left (Acute) Medical History Acne vulgaris Legionella pneumonia Hyponatremia Lesion of liver Viral hepatitis C Steatosis of liver Nicotine dependence 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, predominantly inattentive type Anxiety disorder Essential hypertension HTN (hypertension) Lesion of penis H/O total hip arthroplasty Knee pain Chronic pain syndrome Dental infection Chest discomfort Hyperlipidemia Depression History of total left knee replacement ADD (attention deficit disorder) Medication monitoring encounter Anxiety Unintentional weight loss Chronic low back pain Rib pain on left side Urinary disorder Lumbar facet joint pain Surgical History History of hip replacement right History of total knee replacement left 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 Social History (Updated 10/06/24 @ 13:15 by IBIS [place]) Smoking/Tobacco Use Status: Current every day Tobacco Type: cigarettes Smoking risk assessment performed?: Yes Alcohol Intake: current Alcohol Intake frequency: 0-2 drinks per day Alcohol type: beer Drug use: Occasionally Substance use type: marijuana Housing: apartment Do you feel safe at home: Yes Do you feel safe in your relationship?: Yes Meds Allergies and Home Medications Allergies Allergy/AdvReac Type Severity Reaction Status Date / Time baclofen Allergy Severe tachycardia Verified 01/06/25 09:50 clonidine (From Catapres) Allergy Severe tachycardia Verified 01/06/25 09:50 diclofenac Allergy Severe Anaphylaxis Verified 01/06/25 09:50 fentanyl AdvReac Severe nausea Verified 01/06/25 09:50 gabapentin (From Neurontin) AdvReac Severe heart Verified 01/06/25 09:50 racing mirtazapine (From Remeron) AdvReac Severe raises Verified 01/06/25 09:50 cholesterol morphine (From MS Contin) AdvReac Severe Nausea Verified 01/06/25 09:50 NSAIDS (Non-Steroidal AdvReac Swelling/Ed Verified 01/06/25 09:50 Anti-Inflamma saul Home Medications ?Medication ?Instructions ?Recorded ?Confirmed ?Type amlodipine 5 mg tablet 10 mg PO DAILY 12/25/21 01/06/25 History atorvastatin 20 mg tablet 20 mg PO DAILY 01/03/25 01/06/25 History Exam Const General: cooperative, healthy appearing and not in acute distress Neck Neck: normal visual inspection, no lymphadenopathy and supple Resp Effort & Inspection: normal respiratory effort Auscultation: clear to auscultation bilaterally Cardio Jugular venous pressure: no JVD Rate: regular rate Rhythm: regular rhythm Heart Sounds: S1 normal and S2 normal GI Inspection: normal to inspection Palpation: soft, no guarding, no hernias and nontender Percussion: normal to percussion Auscultation: normal bowel sounds Neuro General: patient alert, patient awake and patient oriented x3 Psych Appearance: grossly normal
--- NOTE | 2025-01-05 15:49 | COLE_ITS ---
Date of service: 01/06/25 Time of Service: 11:13 Colonoscopy Report Date of procedure: 01/06/25 Pre-op diagnosis general: Screening colonoscopy Post-op diagnosis procedure note: other (Colon polyps) Procedure: Colonoscopy with polypectomy Surgeon: Costa Tan Anesthesia Type: General:No Airway Estimated blood loss (mL): 10 Pathology: other (0.25 cm cecal polyp, 0.25 cm polyps at 100, 90, 75, and 20 cm from the anal verge) Complications: None Disposition: same day Indications: Farooq is a 59-year-old male who needs his next screening colonoscopy Prep: Miralax/Dulcolax Procedure Start Time: 10:36 Procedure End Time: 11:03 Retraction Time: 23 Findings: 0.25 cm cecal polyp, 0.25 cm polyps at 100, 90, 75, and 20 cm from the anal verge Procedure Description: After the induction of anesthesia, and with Farooq in left lateral decubitus position, I began by performing an external anorectal exam.? Perineum and skin were normal, as was the anal verge.? There was no evidence of external hemorrhoids.? Next, I performed a digital rectal exam.? I did appreciate any abnormal findings.? Next, I advanced a colonoscope into the rectal vault.? I performed retroflexion.? This appeared normal.? Using irrigation, I then advanced the colonoscope beyond the rectal folds and into the sigmoid colon before advancing towards the cecum. The scope was noted to be in the cecum by identification of the ileocecal valve and appendiceal orifice.? I then began withdrawing the colonoscope using repeated irrigation as necessary for full evaluation of the colonic mucosa. ?Within the cecum was a 0.25 cm flat polyp. This was removed with cold forcep polypectomy. Similarly, 0.5 cm flat polyps were found at 100, 90, and 75 cm. These were all removed with cold forceps. Once the scope was withdrawn to the level of the rectum, great care was taken to examine portions of the rectal folds.? In the top portion of the rectal vault, about 20 cm from the anal verge was 1 more polyp. This was also about 0.25 cm and flat. This was also removed with cold forceps. Finally, the scope was withdrawn and the patient was brought to the same-day surgery recovery unit as the anesthetic wore off. ?The findings and instructions were shared with the patient prior to discharge. [place] Bowel Prep [place] Bowel Prep Right Colon: 2 Left Colon: 3 Transverse Colon: 3 Total Score: 8
--- NOTE | 2025-01-05 15:51 | W.PM.DSUDISC ---
Date of service: 01/06/25 Discharge Plan Disposition Patient Disposition: Home Condition: Good Discharge Details Reason For Visit: Screening colonoscopy Attending Provider: Costa Tan Primary Care Provider: Flavio Flores Home Meds and New Rx's Prescriptions: Continued atorvastatin 20 mg tablet 20 mg PO DAILY Patient Comments: TAKE ONE TABLET BY MOUTH EVERY DAY amlodipine 5 mg Tablet 10 mg PO DAILY Discontinued bisacodyl 5 mg tablet,delayed release (DR/EC) 5 mg PO ONCE Qty: 4 0RF Rx Instructions: Per Colonoscopy bowel prep instructions polyethylene glycol 3350 17 gram/dose powder 238 g PO ONCE Qty: 238 0RF Rx Instructions: For Colonoscopy bowel prep, as directed by office Discharge Instructions Instructions: Colon polyps Additional Instructions: Farooq, it was a pleasure meeting you today, and I hope you are comfortable through the procedure. Things went very smoothly. I did find, and removed a total of 5 polyps today. These will be sent off for testing as polyps do come in different varieties, and the nature of the polyps helps guide the timing of future colonoscopies. Those results will take about a week or 2 to get back. Once I have that information, my office will be in touch with future recommendations. If you need anything or have any questions in the meantime, please do not hesitate to ask. 1. If tolerated, consume a soft, low fiber diet for 1-2 days. [address] Do not drive, drink alcohol, operate machinery, make critical decisions, or do activities that require coordination or balance for 24 hours. 3. Because air was put into your colon during the procedure, expelling air from your rectum (passing gas or farting) is normal. 4. You may not have a bowel movement for 1-3 days because of the colonoscopy prep. This is normal. 5. Go directly to the emergency room if you notice any of the following: Develop chills (warm to touch), or if you have a thermometer and your temperature is above 101 Difficulty breathing or difficultly swallowing Persistent vomiting Severe abdominal pain, other than gas cramps Severe chest pain Black, tarry stools Any bleeding ? exceeding one tablespoon 6. Call your physician if the site where your intravenous was started becomes red, swollen, painful, and warm to touch. 7. Your physician has reviewed your pre-procedure medications. Please continue to take those medications as previously ordered. You will be given specific information/education regarding any changes to your medications before leaving. Stand Alone Forms: Anesthesia Discharge Inst., Colonoscopy Post Instructions, Moi Lopez (DSU) Activity:: Activity as Tolerated Diet:: As Tolerated Discharge Orders Discharge Orders: Discharge Order (Routine); Ordered 01/05/25 Ordered By: Costa Tan DS: Diagnosis Discharge Diagnosis (1) Encounter for screening colonoscopy: Status: Acute Asessment and Plan: Follow-up on polypectomy results
[2025-01-06 09:45] VITALS: BP 138/89; PULSE 79; RESP 17; TEMP 36.2; O2SAT 97
--- NOTE | 2025-01-06 09:58 | ANES.PREOP_ITS ---
General Info Date of Service Date Performed: 01/06/25 Height: 5 ft 4 in Weight: 72.7 kg Body Mass Index (BMI): 27.5 Surgical Procedure: Operation Date: 01/06/25 10:35 Proposed Procedure Side Surgeon p Colonoscopy Costa Tan MD Actual Procedure Side Surgeon p Colonoscopy Not Applicable Costa Tan MD Pre-Op Diagnosis Post-Op Diagnosis Screening colonoscopy Meds Allergies and Home Medications Allergies Allergy/AdvReac Type Severity Reaction Status Date / Time baclofen Allergy Severe tachycardia Verified 01/06/25 09:50 clonidine (From Catapres) Allergy Severe tachycardia Verified 01/06/25 09:50 diclofenac Allergy Severe Anaphylaxis Verified 01/06/25 09:50 fentanyl AdvReac Severe nausea Verified 01/06/25 09:50 gabapentin (From Neurontin) AdvReac Severe heart Verified 01/06/25 09:50 racing mirtazapine (From Remeron) AdvReac Severe raises Verified 01/06/25 09:50 cholesterol morphine (From MS Contin) AdvReac Severe Nausea Verified 01/06/25 09:50 NSAIDS (Non-Steroidal AdvReac Swelling/Ed Verified 01/06/25 09:50 Anti-Inflamma saul Home Medication ?Medication ?Instructions ?Recorded amlodipine 5 mg tablet 10 mg PO DAILY 12/25/21 atorvastatin 20 mg tablet 20 mg PO DAILY 01/03/25 Current Visit Medications: Current Medications Generic Name Dose Route Start Last Admin Trade Name Freq PRN Reason Stop Dose Admin Ringer's Solution 1,000 mls @ 80 mls/hr 01/06/25 06:00 IV 01/06/25 23:59 [facility] IV Miscellaneous Supplies 1 each 01/06/25 06:00 Iv Access IV 01/06/25 23:59 DIRECTED MARGARET Ondansetron HCl 4 mg 01/05/25 15:52 Ondansetron 4 Mg/2 Ml Vial IVP 02/04/25 15:51 Q4H PRN PRN Nausea / Vomiting Sodium Chloride 0 ml 01/06/25 06:00 Normal Saline Flush 10 Ml Syr IV 01/06/25 23:59 PRN PRN Sodium Chloride 0 ml 01/06/25 06:00 Normal Saline 10 Ml Vial IJ 01/06/25 23:59 DIRECTED PRN Sterile Water 0 ml 01/06/25 06:00 Water,Injection,Sterile 10 Ml Vial IJ 01/06/25 23:59 DIRECTED PRN PFSH Active Problems Active Problems: Problem Status Onset Code Encounter for screening colonoscopy Acute Z12.11 Foot osteomyelitis, left Acute M86.9 Medical History Medical History Acne vulgaris Legionella pneumonia Hyponatremia Lesion of liver Viral hepatitis C Steatosis of liver Nicotine dependence 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, predominantly inattentive type Anxiety disorder Essential hypertension HTN (hypertension) Lesion of penis H/O total hip arthroplasty Knee pain Chronic pain syndrome Dental infection Chest discomfort Hyperlipidemia Depression History of total left knee replacement ADD (attention deficit disorder) Medication monitoring encounter Anxiety Unintentional weight loss Chronic low back pain Rib pain on left side Urinary disorder Lumbar facet joint pain Surgical History Surgical History History of hip replacement right History of total knee replacement left 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 Tobacco Smoking/Tobacco Use Status: Current every day Tobacco Type: cigarettes Alcohol Alcohol Intake: current Alcohol intake frequency: 0-2 drinks per day Alcohol ty pe: beer Substance Use Substance use: Occasionally Substance use type: marijuana Vital Signs and Lab Results Vital Signs Most Recent Vital Signs in EMR: Most Recent Vital Signs Temp Pulse Resp BP Pulse Ox 36.2 C L 79 17 138/89 97 01/06/25 09:45 01/06/25 09:45 01/06/25 09:45 01/06/25 09:45 01/06/25 09:45 Lab Results Blood Type / Crossmatch: No Data to Display Complete Blood Count: No Data to Display Complete Metabolic Panel: No Data to Display Liver Function Panel: No Data to Display Coagulation Panel: No Data to Display Cardiac Panel: No Data to Display Arterial Blood Gas: No Data to Display Venous Blood Gas: No Data to Display Pancreas Panel: No Data to Display Thyroid Panel: No Data to Display Infectious Disease: No Data to Display Blood Cultures: No Data to Display Toxicology Panel: No Data to Display Anesthesia Assessment and Plan Anesthesia History Personal History: No History of Anesthesia Complications Family History: No Family History of Anesthesia Complications Exercise Tolerance Exercise Tolerance: Metabolic Equivalents>4 Pertinent Negatives Pertinent Negatives: No Symptoms of GERD Cardiac & Pulmonary Exam Cardiac Exam: Normal S1/S2 Heart Sounds Pulmonary Exam: Clear Bilateral Breath Sounds Implantable Cardiac Device Does patient have a Pacemaker or an ICD?: No Airway Exam Known Difficult Airway: No Mallampati Class: 2 Mouth Opening: Normal (> 3cm) Thyromental Distance: Greater than 3 cm Neck Range of Motion: Full ROM Neck Circumference: Normal Teeth Condition: Normal Dentition ASA Classification ASA Score: ASA 3 Emergency Case?: No NPO Status NPO Status: NPO Clears >2 hours, Solids >8 hours Anesthesia Plan Resuscitation Status: Full Code Anesthesia Technique: General Anesthesia Airway Planned: Natural Airway Monitors Used: Standard Monitors
[2025-01-06] MEDS: Lactated Ringers 1,000 ML 80 ML IV (10:03)
[2025-01-06 10:15] VITALS: BMI 27.5
--- NOTE | 2025-01-06 10:42 | BOWEL_PTH ---
PATIENT: Farooq Chiang LOC: [facility] U#:[id number] AGE/SX: 59/M ROOM: RE01/06/[address]: Costa Tan MD : 1965 BED: DIS: 01/06/2025 SPEC #: [id number] RECD: 01/06/25 12:27 STATUS: [facility]LEMAN REQ #: [id number] JACKIE: 01/06/25 10:[address]: Costa Tan DEPT: Surgical Specimen RECD BY: Maira Monge ENTERED: 01/06/25 12:29 SP TYPE: Bowel OTHR DR: Flavio Flores Tissues: 1 - BIOPSY BOWEL 2 - BIOPSY BOWEL 3 - BIOPSY BOWEL 4 - BIOPSY BOWEL 5 - BIOPSY BOWEL Procedures: GROSS AND MICRO LEVEL 4 Comments: [id number]
[2025-01-06 11:09] VITALS: BP 99/68; PULSE 72; RESP 16; TEMP 36.4; O2SAT 95
--- NOTE | 2025-01-06 11:12 | W.ANESPOSTOP ---
Postoperative Evaluation Date, Time and Location Date Performed: 01/06/25 Time Performed: 11:13 Patient Location: Day Surgery Unit Vital Signs Most Recent Imported Vital Signs: Most Recent Vital Signs Temp Pulse Resp BP Pulse Ox 36.2 C L 79 17 138/89 97 01/06/25 09:45 01/06/25 09:45 01/06/25 09:45 01/06/25 09:45 01/06/25 09:45 Pain Score Most Recent Pain Score: Most Recent Pain Score Pain Level 0 01/06/25 09:45 Assessment Mental Status: Awake (Alert & Oriented to Patient Baseline) Airway and Respiratory Function: Patent airway with normal (patient baseline) respiratory exam Cardiovascular Function: Hemodynamically Stable Hydration Status: Adequately Hydrated Nausea & Vomiting: No Nausea or Vomiting Pain: Pt. Denies Any Pain Peripheral Nerve Block: Patient did not receive a nerve block
[2025-01-06 11:36] VITALS: BP 136/85; PULSE 65; RESP 18; TEMP 36.1; O2SAT 99
== END 2025-01-06 12:21 | disposition home or self-care (01) ==
LOC: SUR 09:16
PROVIDERS: PCP Physician Assistant; Visit Provider Surgery
PROC: 0DJD8ZZ Inspection of Lower Intestinal Tract, Via Natural or Artificial Opening Endoscopic (ICD-10-PCS; CPT 45378; principal; 2025-01-06 10:30)
DX: Z12.11 Encounter for screening for malignant neoplasm of colon (principal); I10 Essential (primary) hypertension; D12.0 Benign neoplasm of cecum; K62.1 Rectal polyp; D12.3 Benign neoplasm of transverse colon; D12.4 Benign neoplasm of descending colon
CPT/HCPCS: 45380; 88305; J2003; J2704

== ENCOUNTER 2025-06-16 11:50 | Outpatient (REF) | payer MEDICARE, MEDICAID, SELFPAY ==
[2025-06-16 16:02] LABS: HCT 44.9 % (40.0-50.0); HGB 15.2 g/dL (13.5-17.5); MCH 33.4 pg (27.0-33.0); MCHC 33.9 % (32.0-36.0); MCV 99 fL (80-95); MPV 9.6 fL (8.0-11.0); Platelet Count 320 10^3/uL (130-400); RBC 4.55 10^6/uL (4.36-5.78); RDW 12.3 % (11.8-14.1); RDW-SD 45.0 fL; WBC 5.63 10^3/uL (4.4-10.8)
[2025-06-16 17:51] LABS: ALT 50 U/L (16-63); AST 46 U/L (15-37); Albumin 4.2 g/dL (3.4-5.0); Alkaline Phosphatase 86 U/L (46-116); Anion Gap 15.6 mmol/L (3-11); BUN 8 mg/dL (7-18); Bilirubin, Total 0.4 mg/dL (0.2-1.0); CO2 23.4 mmol/L (21.0-32.0); Calcium 9.0 mg/dL (8.5-10.1); Chloride 101 mmol/L (98-107); Cholesterol 165 mg/dL (<200); Glucose 107 mg/dL (74-106); HDL Cholesterol 88 mg/dL (>or=40); Potassium 3.9 mmol/L (3.5-5.1); Sodium 140 mmol/L (136-145); Total Protein 8.3 g/dL (6.4-8.2)
[2025-06-16 23:18] LABS: Hepatitis C Ab w Rflx HCV PCR Negative (Negative)
== END 2025-06-16 11:51 | disposition home or self-care (01) ==
LOC: NCHCN 11:50
PROVIDERS: PCP Physician Assistant; Visit Provider Physician Assistant
DX: Z11.59 Encounter for screening for other viral diseases (principal); Z91.89 Other specified personal risk factors, not elsewhere classified; E78.5 Hyperlipidemia, unspecified; I10 Essential (primary) hypertension
CPT/HCPCS: 80053; 80061; 85027; 86803

== ENCOUNTER → 2025-07-04 01:34 | Outpatient (CLI) | payer MEDICARE, SELFPAY ==
--- NOTE | 2025-07-04 | DI.CTLCSR_ITS ---
Exam(s) CT CHEST LUNG CANCER SCREEN EXAM: CT CHEST LUNG CANCER SCREEN CLINICAL HISTORY: CURRENT SMOKER, F17.200 TECHNIQUE: Imaging Protocol: Axial computed tomography images with coronal and sagittal reformatted images were created and reviewed. Lung Computer Aided Detection (CAD) was utilized. COMPARISON: CT CT CHEST/ABD/PEL W from 07/06/2023 FINDINGS: Tracheobronchial tree: Patent where visualized. No bronchiectasis. Pulmonary parenchyma: No consolidation or dominant measurable mass. No architectural distortion. There is elevation of the left hemidiaphragm. Lung Nodules: There are no suspicious pulmonary nodules. Mediastinum and Elsa: No dominant adenopathy or fluid collection. The esophagus is unremarkable. Thyroid gland: Unremarkable. Lymph nodes: Unremarkable. Pleura: No effusion or pneumothorax. Heart: The heart is not dilated. Coronary artery calcification is present. No pericardial effusion. Aorta: Thoracic aorta non-dilated.Atherosclerotic calcification is present. Upper abdomen: Unremarkable. Soft Tissues: There is bilateral gynecomastia. Bones: Within normal limits. There again seen compression fracture deformities of T4 and T8. There has been slight progression of the T4 compression fracture since the prior examination from 2022. No new findings are present. IMPRESSION: There are no suspicious pulmonary nodules. Lung RADS Cat 1 - Negative: No nodules and definitely benign nodules Lung-RADS 1.0 CATEGORIES: Category 0 - Prior chest CT exam(s) being located for comparison. Category 1 - Annual screening in 12 months. No nodules or definitely benign nodules. Category 2 - Annual screening in 12 months. Benign appearance. Nodules with low likelihood of becoming active cancer. Category 3 - 6-month follow-up. Probably benign. Short-term follow-up suggested. Nodules with low likelihood of becoming active cancer. Category 4A - 3-month follow-up and CT/PET if >8 mm in size. Suspicious finding. Findings which require additional testing. Category 4B - Findings which require additional testing and tissue sampling. Suspicious finding. Category 4X - Category 3 or 4 nodules with additional features or imaging findings that increases the suspicion of malignancy. Modifier S- Potentially clinically significant finding. (Non lung cancer) RADIATION DOSE DELIVERED: 30.48mGy.cm Total DLP 30.48mGy.cmTotal DLP DATA REPOSITORY: All CT scans at this facility are submitted to the National Radiology Data Registry (NRDR) Dose Index Registry (DIR) with the [employer] ([employer]). RADIATION OPTIMIZATION: All CT scans at this facility use at least one of these dose optimization techniques: automated exposure control; mA and/or kV adjustment per patient size (includes targeted exams where dose is matched to clinical indication); or iterative reconstruction.
== END ==
LOC: DI 01:34
PROVIDERS: PCP Physician Assistant; Visit Provider Physician Assistant
DX: Z12.2 Encounter for screening for malignant neoplasm of respiratory organs (principal); F17.210 Nicotine dependence, cigarettes, uncomplicated
CPT/HCPCS: 71271